=== PATIENT | female | born 1955 | race Caucasian/White ===

== ENCOUNTER 2022-08-24 14:27 | Emergency (ER) | payer MEDICARE, SELFPAY ==
--- NOTE | ~2022-08-24 | US_ITS ---
EXAMINATION: US VENOUS ULTRASOUND WITH DOPPLER LOWER EXTREMITY, LEFT CLINICAL INFORMATION: Left leg pain COMPARISON: None available. TECHNIQUE: Ultrasound of the deep veins is performed from the hip to the calf with compression sonography and color and pulse Doppler assessment. Spectral analysis with color-flow imaging is performed. FINDINGS: There is normal venous compression and respiratory variation and augmented flow. The visualized common femoral vein, superficial femoral vein, profunda femoral vein, popliteal vein, and the trifurcation region shows no evidence of deep venous thrombosis. There is normal respiratory variation in the contralateral common femoral vein. 2.2 x 4.1 x 1.2 cm fluid collection in the left popliteal fossa is consistent with a Esteban's cyst. US/US venous duplex LE LT IMPRESSION: No DVT demonstrated in the left lower extremity. Small Esteban's cyst.
--- NOTE | 2022-08-24 14:39 | ED.GENADULT ---
HPI - General Adult General Chief complaint: Extremity Injury, Lower Stated complaint: L Leg Pain No Injury Time Seen by Provider: 08/24/22 16:19 History of Present Illness HPI narrative: patient complains of worsening left leg pain over the past 2 and half months, she did see an urgent care and was referred for an ultrasound in April, this was negative, pain has been waxing and waning and lately is getting worse She denies any skin rash no changes to skin color, there has been no joint swelling no injuries no fevers no numbness weakness or tingling no radiation of pain from her back no associated back pain no abdominal pain no nausea or vomiting no chest pain or shortness Related Data Previous Rx's Medication Instructions Recorded naproxen 500 mg tablet (Naprosyn) 500 mg PO BID PRN pain #20 tabs 08/24/22 Allergies Allergy/AdvReac Type Severity Reaction Status Date / Time Penicillins Allergy Unknown Unknown Verified 08/24/22 14:44 [facility] Past Medical History Source: nursing notes reviewed Social History Social History Advance Directives: No Advance Directives Information Provided: No Physical Exam ED Vital Signs: Vital Signs - 24 hr 08/24/22 14:41 Temperature 98.0 F Pulse Rate 61 Respiratory Rate 18 Blood Pressure 141/87 H Pulse Oximetry 95 Oxygen Delivery Method Room Air BMI result Body Mass Index 31.6 general appearance no acute distress relaxing in the room Head is normocephalic atraumatic Neck is supple Respiratory no distress Chest clear to auscultation bilateral Abdomen soft nontender Extremities full range of motion x4 Left leg exam there is tenderness in the popliteal area but there is also some tenderness in both anterior and posterior lower leg, the color of the skin was normal and symmetric with the other side, pulse is dorsalis pedis were symmetric and palpable, leg was neurovascular intact distal, no redness no warmth no evidence of cellulitis no swelling Skin no rashes Neuro motor 5/5 x4 and sensation is intact and symmetrical, she is walking with a limping gait Course Course Course Narrative: This is an RME: Additional HPI, ROS, PE not included below will be deferred to primary provider. Patient is a 66 yo F with no PMH presenting with pain in left leg. Patient reports last time this happened was in April and sought treatment but nothing was found. patient presents again today with similar pain for the past week from the knee that radiates down the leg. Patient reports 10/10 pain. patient denies recent travel, hormone therapy, smoking, cancer. Patient denies fever, chills, nausea,vomiting, headache, vision changes, numbness, tingling Plan: labs, US Patient came with a complaint of continuous gradually worsening pain in the left lower leg both front and back going from the knee mostly the back of the knee down to the toes sometimes, it is not accompanied by any change in skin color there is no loss of sensation there is no tingling or paresthesias there is no muscle weakness, it was gradual onset She did see a clinic for similar complaint 2 months ago and had a negative ultrasound, has not seen her primary doctor Today the leg was normal in appearance with a good pulse, neurovascular intact, ultrasound was negative for DVT but did show a small Esteban cyst,there is no evidence of cellulitis the joints were all fully mobile there was no joint swelling there were no lesions on the skin plan is to follow with primary doctor for possible referral to a neurologist to evaluate for possible pinched nerve, referral to orthopedist for further evaluation of the Esteban's cyst and possible further imaging to see if there is any mass that could be pressing on a nerve Patient agrees to follow closely with her doctor and will return if anything is worse Chemistry was checked and no acute abnormalities Medical Decision Making Lab Data 08/24/22 15:06 08/24/22 15:06 Labs: Lab Results 08/24/22 08/24/22 Range/Units 15:06 15:06 PT 11.2 (10.0-13.1) SEC INR 1.0 (0.9-1.1) Sodium 140 (135-145) mmol/L Potassium 4.2 (3.3-5.1) mmol/L Chloride 105 (96-108) mmol/L Carbon Dioxide 28 (22-29) mmol/L Anion Gap 11 L (12-20) BUN 13 (9-16) mg/dL Creatinine 0.79 (0.5-1.4) mg/dL Estim Creat Clear Calc 63.5 Estimated GFR > 60 Random Glucose 82 (60-115) mg/dL Calcium 10.2 (8.4-10.2) mg/dL Magnesium 2.1 (1.6-2.6) mg/dL Total Bilirubin 0.5 (0.0-1.0) mg/dL AST 21 (5-31) U/L ALT 28 (0-31) U/L Alkaline Phosphatase 87 (39-117) U/L Total Protein 6.7 (6.5-8.0) g/dL Albumin 4.1 (3.5-5.0) g/dL Discharge Plan Discharge Clinical Impression: Leg pain Patient Disposition: Home, Self-Care Additional Instructions: I am not sure what is causing the pain in the leg In the emergency room there is no sign of infection, it seems to have good circulation there is no blood clot no signs of any broken bone You may need further evaluation by a neurologist or possibly more advanced imaging to make sure there is no cyst or mass pressing anywhere, so follow closely with primary doctor and orthopedist Return any time any worse condition or any concerns Prescriptions: New naproxen [Naprosyn] 500 mg tablet 500 mg PO BID PRN (Reason: pain) Qty: 20 0RF Referrals: Chaitanya Gaming MD [Physician] - ( esteban cyst) Interventions: ED Discharge Assessment Last Done: 08/24/22 17:33 Discharge Date/Time: 08/24/22 17:36
[2022-08-24 14:41] VITALS: BP 141/87; PULSE 61; RESP 18; TEMP 36.7; O2SAT 95; BMI 31.6
[2022-08-24 15:12] LABS: MANUAL DIFF FLAG NO
[2022-08-24 15:26] LABS: Alanine Aminotransferase 28 U/L (0-31); Albumin Level 4.1 g/dL (3.5-5.0); Alkaline Phosphatase 87 U/L (39-117); Anion Gap 11 (12-20); Aspartate Amino Transferase 21 U/L (5-31); Bilirubin Total 0.5 mg/dL (0.0-1.0); Blood Urea Nitrogen 13 mg/dL (9-16); Calcium 10.2 mg/dL (8.4-10.2); Carbon Dioxide 28 mmol/L (22-29); Chloride 105 mmol/L (96-108); Creatinine Clr Calc Pharmacy 63.5; Estimated Glomerular Filt Rate > 60; Glucose Random 82 mg/dL (60-115); Magnesium 2.1 mg/dL (1.6-2.6); Potassium 4.2 mmol/L (3.3-5.1); Sodium 140 mmol/L (135-145); Total Protein 6.7 g/dL (6.5-8.0)
[2022-08-24 15:46] LABS: Prothrombin Time 11.2 SEC (10.0-13.1)
[2022-08-24 19:33] LABS: Basophils Absolute Auto 0.1 X10*3/uL (0.0-0.2); Basophils Percent Auto 1.2 % (0-2); Eosinophils Absolute Auto 0.2 X10*3/uL (0.0-0.4); Eosinophils Percent Auto 4.6 % (0-4); Hematocrit 43.5 % (37.0-47.0); Hemoglobin 14.9 g/dl (12.0-16.0); Imm Gran Abs Auto 0.01 X10*3/uL (0.00-0.03); Imm Gran Pct Auto 0.2 % (0.0-0.4); Lymphocytes Absolute Auto 1.5 X10*3/uL (1.2-4.9); Lymphocytes Percent Auto 30.9 % (20-40); Mean Corpuscular HGB Conc 34.3 g/dl (31.0-35.0); Mean Corpuscular Volume 90.6 fL (80.0-98.0); Mean Platelet Volume 10.5 fL (9.4-12.3); Monocytes Absolute Auto 0.5 X10*3/uL (0.1-1.2); Monocytes Percent Auto 10.2 % (2-11); Neutrophils Absolute Auto 2.6 x10*3/uL (2.0-8.3); Neutrophils Percent Auto 52.9 % (45-73); Platelet Count 201 X10*3/uL (160-400); Red Cell Distribution Width 12.1 % (11.0-16.0)
== END 2022-08-24 17:36 | disposition home or self-care (01) ==
PROVIDERS: Physician Assistant; Emergency Provider Emergency Medicine Emergency Medical Services; PCP Family Medicine
DX: M79.605 Pain in left leg (principal)
CPT/HCPCS: 36415; 80053; 83735; 85025; 85610; 93971; 99282; 99284

== ENCOUNTER 2022-08-27 11:13 | Outpatient (REF) | payer MEDICARE, SELFPAY ==
--- NOTE | ~2022-08-27 | XR_ITS ---
EXAMINATION: XR LUMBOSACRAL SPINE WITH OBLIQUES CLINICAL INFORMATION: Low back pain radiating to left leg COMPARISON: None available. TECHNIQUE: AP, both oblique, and lateral views of the lumbar spine. Lateral view of the lumbosacral junction. FINDINGS: There is maintained lumbar lordosis with mild levoscoliosis. Loss of T12/L1, L1-L2 and L2-L3 disc heights with moderate ventral spondylosis in the upper lumbar lower dorsal spine is noted. On oblique views there is no pars defect or listhesis. No acute fracture, lytic or sclerotic process seen. SI joints are symmetrical and normal. The paravertebral soft tissues are normal. XR/XR lumbar spine 4V min IMPRESSION: Mild levoscoliosis lumbar spine with degenerative disc changes upper lumbar spine with moderate ventral spondylosis. No acute fracture or lytic process seen.
== END 2022-08-27 11:14 | disposition home or self-care (01) ==
LOC: HO.XRAY 11:13
PROVIDERS: Absent Provider Family Medicine; PCP Family Medicine; Visit Provider General Practice
DX: M54.50 Low back pain, unspecified (principal); M79.605 Pain in left leg
CPT/HCPCS: 72110

== ENCOUNTER 2022-09-10 12:05 | Outpatient (REF) | payer MEDICARE, SELFPAY ==
[2022-09-10 14:17] LABS: MANUAL DIFF FLAG NO
[2022-09-10 14:25] LABS: Basophils Absolute Auto 0.1 X10*3/uL (0.0-0.2); Basophils Percent Auto 1.1 % (0-2); Eosinophils Absolute Auto 0.3 X10*3/uL (0.0-0.4); Eosinophils Percent Auto 5.8 % (0-4); Hematocrit 45.4 % (37.0-47.0); Hemoglobin 15.3 g/dl (12.0-16.0); Imm Gran Abs Auto 0.02 X10*3/uL (0.00-0.03); Imm Gran Pct Auto 0.4 % (0.0-0.4); Lymphocytes Absolute Auto 1.4 X10*3/uL (1.2-4.9); Lymphocytes Percent Auto 24.2 % (20-40); Mean Corpuscular HGB Conc 33.7 g/dl (31.0-35.0); Mean Corpuscular Hemoglobin 30.9 pg (27.0-33.0); Mean Corpuscular Volume 91.7 fL (80.0-98.0); Mean Platelet Volume 11.3 fL (9.4-12.3); Monocytes Absolute Auto 0.5 X10*3/uL (0.1-1.2); Monocytes Percent Auto 9.1 % (2-11); Neutrophils Absolute Auto 3.4 x10*3/uL (2.0-8.3); Neutrophils Percent Auto 59.4 % (45-73); Platelet Count 241 X10*3/uL (160-400); Red Blood Count 4.95 X10*6/uL (4.20-5.50); Red Cell Distribution Width 12.4 % (11.0-16.0); White Blood Count 5.7 X10*3/uL (4.8-10.8)
[2022-09-10 15:07] LABS: Alanine Aminotransferase 23 U/L (0-31); Albumin Level 4.1 g/dL (3.5-5.0); Alkaline Phosphatase 82 U/L (39-117); Anion Gap 18 (12-20); Aspartate Amino Transferase 21 U/L (5-31); Bilirubin Total 0.6 mg/dL (0.0-1.0); Blood Urea Nitrogen 18 mg/dL (9-16); Calcium 9.5 mg/dL (8.4-10.2); Carbon Dioxide 22 mmol/L (22-29); Chloride 104 mmol/L (96-108); Cholesterol 185 mg/dL; Estimated Glomerular Filt Rate > 60; Glucose Fasting 82 mg/dL (60-99); HDL Cholesterol 56 mg/dL; LDL Cholesterol Calculated 113 mg/dl; Potassium 4.4 mmol/L (3.3-5.1); Sodium 140 mmol/L (135-145); Total Protein 6.9 g/dL (6.5-8.0); Triglycerides 83 mg/dL
[2022-09-10 15:10] LABS: TSH reflex Free T4 1.08 uIU/mL (0.32-4.0)
[2022-09-10 15:26] LABS: Creatinine Urine 72.11 mg/dL
== END 2022-09-10 12:06 | disposition home or self-care (01) ==
LOC: HO.CHCLDS 12:05
PROVIDERS: Visit Provider Family Medicine
DX: I10 Essential (primary) hypertension (principal)
CPT/HCPCS: 36415; 80053; 80061; 84443; 85025

== ENCOUNTER 2022-09-10 13:19 | Outpatient (REF) | payer MEDICARE, SELFPAY ==
--- NOTE | ~2022-09-10 | XR_ITS ---
EXAMINATION: XR KNEE, LEFT CLINICAL INFORMATION: Pain and swelling COMPARISON: None available. TECHNIQUE: Four views of the left knee. FINDINGS: Moderate suprapatellar effusion. Tricompartment spurring. Medial knee joint narrowing. No fracture or dislocation. XR/XR knee LT 4V IMPRESSION: Moderate suprapatellar effusion. Degenerative type changes.
== END 2022-09-10 13:20 | disposition home or self-care (01) ==
LOC: HO.XRAY 13:19
PROVIDERS: Visit Provider Family Medicine
DX: M25.562 Pain in left knee (principal); M25.462 Effusion, left knee
CPT/HCPCS: 73564

== ENCOUNTER 2022-09-13 18:46 | Outpatient (REF) | payer MEDICARE, SELFPAY ==
--- NOTE | ~2022-09-13 | MR_ITS ---
EXAMINATION: MR KNEE WITHOUT CONTRAST, LEFT CLINICAL INFORMATION: Left knee pain COMPARISON: Radiographs 09/10/2022 TECHNIQUE: MRI of the knee without contrast was performed using routine sequences on a high-field scanner. FINDINGS: MENISCI: Medial Meniscus: Irregular ill-defined tearing along the inner margin of the posterior horn at and adjacent to the meniscal root. Mild undersurface tearing at the junction of the posterior horn and body which is slightly extruded. Lateral Meniscus: Degenerative tearing at the root of the anterior horn, at the junction with the ACL insertion. LIGAMENTS: Cruciate: Mucoid degeneration of the ACL with ill-defined partial tearing distally. Collateral: Intact. EXTENSOR MECHANISM: Intact. ARTICULAR CARTILAGE/BONE: Patellofemoral Compartment: Cartilage thinning with surface irregularity throughout the central patella. Medial Compartment: Mild cartilage thinning along the lateral aspect of the weight-bearing femoral condyle and the central aspect of the tibia. Peripheral cartilage thinning and subchondral marrow edema medially with small marginal osteophytes. Lateral Compartment: Cartilage thinning along the lateral tibial spine and small marginal osteophytes. Prominent degenerative cysts deep to the tibial spines centrally. JOINT FLUID AND BURSAE: Small joint effusion and mild synovitis. Small Esteban's cyst which has likely recently ruptured, with fluid extending distally deep to the medial gastrocnemius muscle. A small ganglion projects through the medial gastrocnemius origin. MR/MR knee LT wo con IMPRESSION: 1. Irregular ill-defined tearing along the inner margin of the posterior horn of the medial meniscus at and adjacent to the meniscal root. Mild undersurface tearing at the junction of the posterior horn and body which is slightly extruded. 2. Degenerative tearing at the root of the anterior horn of the lateral meniscus at the junction with the ACL insertion. 3. Mucoid degeneration of the ACL with ill-defined partial tearing distally. 4. Mild tricompartmental osteoarthritis with a small joint effusion and a recently ruptured Esteban's cyst.
== END 2022-09-13 18:47 | disposition home or self-care (01) ==
LOC: HO.MRI 18:46
PROVIDERS: PCP Family Medicine; Visit Provider Family Medicine
DX: M25.562 Pain in left knee (principal); M25.462 Effusion, left knee
CPT/HCPCS: 73721

== ENCOUNTER 2022-10-19 09:29 | Outpatient (AMB) | payer MEDICARE, SELFPAY ==
--- NOTE | 2022-10-19 09:43 | A.OFFVIS_ITS ---
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 The patient states that her symptoms have gotten worse over the last few months in spite of continued non operative treatments. She has tried wearing a brace which gives her minimal relief. She has also had injections in the past which gave her no relief. She has done physical therapy for 12 weeks over the last 6 months which aggravated her pain. Patient states that her left knee will give out several times per day. Allergies Penicillins Allergy (Unknown, Verified 10/19/22 09:43) Unknown Medication List - Last Reconciled 10/19/22 by Trevon Cosme MD amlodipine 5 mg PO DAILY cholecalciferol (vitamin D3) 50 mcg PO QAM naproxen (Naprosyn) 500 mg PO BID PRN venlafaxine ER 37.5 mg PO DAILY PFSH Surgical History (Updated 10/19/22 @ 09:52 by Mayte Snowden MA) H/O tubal ligation Family History (Updated 10/19/22 @ 09:52 by Mayte Snowden MA) Maternal Grandfather Diabetes Father Hx of emphysema Mother CHF (congestive heart failure) Stroke Sister History of kidney cancer Brother Bladder cancer Social History (Updated 10/19/22 @ 09:49 by Mayte Snowden MA) Household Members: Spouse Housing: House Alcohol intake: never Patient Tobacco Use Status: Never used Tobacco Current occupational status: employed 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 Physical Exam Const Other: Well-nourished well-developed very friendly female awake alert and oriented x3 in no acute distress Extrem Other: Bilateral lower extremity examination shows good capillary refill, no skin lesions noted, normal sensation light touch Left knee examination shows a mild effusion, minimal crepitus with range of motion, tenderness along her medial and lateral joint lines, positive Koby's test, no instability Office Procedures Joint Injection/Drain Joint Injection/Drain Primary Site: left knee Prep: site was prepped using aseptic technique Injected: 40 mg of, Kenalog and 1% plain lidocaine Procedure: The patient tolerated the procedure well Coding 49509 - Large joint Procedure code (CPT) selection complete Results Reviewed Results Reviewed: 10/19/22 10:22 Lidocaine HCl 2 % MPF [Xylocaine 2 % MPF] 5 ml .ROUTE .STK-MED ONE Triamcinolone Acetonide [Kenalog-40] 40 mg .ROUTE .STK-MED ONE X-rays of the patient's left knee show mild diffuse joint space narrowing, no acute bony abnormalities MRI of the patient's left knee shows mild diffuse degenerative changes as well as tearing of her medial meniscus and possible tearing of her lateral meniscus, no acute bony abnormalities Assessment & Plan Assessment & Plan (1) Tear of medial meniscus of left knee: Code(s): S83.242A - Other tear of medial meniscus, current injury, left knee, initial encounter Plan: Ms. Solis presents with progressively worsening left knee pain and mechanical symptoms due to tearing of her medial meniscus as well as possible te aring of her lateral meniscus. I had a lengthy discussion with the patient regarding the treatment options. The risks and benefits of a cortisone injection were discussed at length with the patient. The patient wished to proceed. Patient tolerated the left knee cortisone injection well. Prior to the injection 10 cc of clear fluid were aspirated from her left knee. If the patient does not get lasting relief from the cortisone injection therapy she is considering undergoing left knee arthroscopic surgery later this year. She will contact my office to pick a surgery date if she chooses to do so. Surgery will most likely involve left knee diagnostic arthroscopy with partial medial meniscectomy as well as possible partial lateral meniscectomy. Activity modifications were discussed at length with the patient. Feel free to call me at any time should questions regarding her orthopedic management arise. Thank you very much for asking me to see this very friendly patient. I spent 22 minutes in reviewing the patient's records and imaging studies, seeing the patient and documenting in the medical record. Orders: Orders AMB Joint Injection/Aspiration Today S83.242A - Other tear of medial meniscus, current injury, left knee, initial encounter Coding Level of Care Code New Pt Level 2 (62074) Diagnoses Tear of medial meniscus of left knee S83.242A CPT Codes Coding - 18806 Large joint: 80077 - Large joint ([id number])
== END 2022-10-19 10:42 | disposition home or self-care (01) ==
PROVIDERS: PCP Family Medicine; Visit Provider Orthopaedic Surgery
DX: S83.242A Other tear of medial meniscus, current injury, left knee, initial encounter (principal)
CPT/HCPCS: 20610; 99204

== ENCOUNTER → 2022-10-19 09:29 | Outpatient (BNVA) | payer MEDICARE, SELFPAY | PROVIDERS: PCP Family Medicine; Visit Provider Orthopaedic Surgery | DX: S83.242A Other tear of medial meniscus, current injury, left knee, initial encounter (principal); M25.562 Pain in left knee | CPT/HCPCS: 20610; 99202; J3301 ==

== ENCOUNTER → 2022-11-12 06:03 | Day surgery (SDC) | payer MEDICARE, SELFPAY ==
[2022-11-10 10:00] VITALS: BMI 32.8
[2022-11-12 06:26] VITALS: BP 130/79; PULSE 57; RESP 16; TEMP 36.9; O2SAT 97
--- NOTE | 2022-11-12 06:30 | ECG_ITS ---
Test Reason : arrhythmia preop Blood Pressure : / mmHG Vent. Rate : 048 BPM Atrial Rate : 000 BPM P-R Int : 000 ms QRS Dur : 078 ms QT Int : 396 ms P-R-T Axes : 000 043 044 degrees QTc Int : 353 ms Atrial fibrillation with slow ventricular response Abnormal ECG No previous ECGs available Referred By: Homer Martin Electronically Signed By:WOJCIECH HENRY
--- NOTE | 2022-11-12 07:02 | PC.NURSE ---
MD RIBERA AND MYSELF BY THE BEDSIDE EVALUATING PATIENT. DENIES ANY CARDIAC SYMPTOMS.
--- NOTE | 2022-11-12 07:12 | PC.NURSE ---
iv removed. patients aware of plan of care. patient given a copy of her ekg and to call her pcp md this morning to make an appt and instructed to go to the er if shes having any symptoms. patients recently stated her fit bit told her she was in some kind of rhythm but wasnt sure what it was. md wilkins already spoke to md waddell.
== END ==
LOC: HO.SSS 06:04
PROVIDERS: PCP Family Medicine; Visit Provider Orthopaedic Surgery
DX: S83.282A Other tear of lateral meniscus, current injury, left knee, initial encounter (principal); Z53.09 Procedure and treatment not carried out because of other contraindication; I48.91 Unspecified atrial fibrillation; X58.XXXA Exposure to other specified factors, initial encounter; Y93.9 Activity, unspecified; Y92.9 Unspecified place or not applicable; Y99.8 Other external cause status
CPT/HCPCS: 93005

== ENCOUNTER 2022-11-12 10:51 | Emergency (ER) | payer MEDICARE, SELFPAY ==
--- NOTE | 2022-11-12 10:53 | ECG_ITS ---
Test Reason : afib Blood Pressure : / mmHG Vent. Rate : 060 BPM Atrial Rate : 060 BPM P-R Int : 260 ms QRS Dur : 082 ms QT Int : 376 ms P-R-T Axes : 039 020 029 degrees QTc Int : 376 ms Sinus rhythm with 1st degree A-V block Anteroseptal infarct , age undetermined Abnormal ECG When compared with ECG of 12-NOV-2022 06:48, Sinus rhythm has replaced Atrial fibrillation Anteroseptal infarct is now Present Referred By: Generic ED Physician Electronically Signed By:WOJCIECH HENRY
[2022-11-12 10:59] VITALS: BP 155/79; PULSE 61; RESP 19; TEMP 36.6; O2SAT 98; BMI 33.6
--- NOTE | 2022-11-12 11:04 | ED_ITS ---
HPI - General Adult General Chief complaint: General Medical Stated complaint: Afib Time Seen by Provider: 11/12/22 11:03 History of Present Illness HPI narrative: see additional note from Barrett Hayden MD dated 11/12/22 Related Data Home Medications Medication Instructions Recorded Confirmed amlodipine 5 mg tablet 5 mg PO DAILY 10/19/22 11/10/22 cholecalciferol (vitamin D3) 50 50 mcg PO QAM 10/19/22 11/10/22 mcg (2,000 unit) tablet venlafaxine 37.5 mg 37.5 mg PO DAILY 10/19/22 11/10/22 capsule,extended release 24 hr Previous Rx's Medication Instructions Recorded naproxen 500 mg tablet (Naprosyn) 500 mg PO BID PRN pain #20 tabs 08/24/22 apixaban 5 mg tablet (Eliquis) 5 mg PO BID a fib #28 tabs 11/12/22 Allergies Allergy/AdvReac Type Severity Reaction Status Date / Time Penicillins Allergy Unknown Unknown Verified 11/10/22 10:00 [facility] Past Medical History Medical History Asthma HTN (hypertension) Surgical History H/O tubal ligation Family History Family History Maternal Grandfather Diabetes Father Hx of emphysema Mother CHF (congestive heart failure) Stroke Sister History of kidney cancer Brother Bladder cancer Social History Social History Household Members: Spouse Housing: House Alcohol intake: never Patient Tobacco Use Status: Never used Tobacco Current occupational status: employed 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 Patient is a 67-year-old female who presents to emergency department with transfer from short-stay surgery she was there today to receive a knee surgery. Reportedly her initial EKG revealed an atrial fibrillation for which she was advised to come to the emergency department for further evaluation, surgery was canceled. Currently asymptomatic. She does endorse occasional episodes of lightheadedness that she attributes to her Meniere's disease and shortness of breath that she attributes to asthma/allergies. Medical Decision Making Lab Data 11/12/22 12:04 11/12/22 12:04 Labs: Lab Results 11/12/22 Range/Units 12:04 WBC 4.3 L (4.8-10.8) X10*3/uL RBC 4.51 (4.20-5.50) X10*6/uL Hgb 14.3 (12.0-16.0) g/dl Hct 41.7 (37.0-47.0) % MCV 92.5 (80.0-98.0) fL MCH 31.7 (27.0-33.0) pg MCHC 34.3 (31.0-35.0) g/dl RDW 12.9 (11.0-16.0) % Plt Count 180 D (160-400) X10*3/uL MPV 10.6 (9.4-12.3) fL Immature Gran % (Auto) 0.2 (0.0-0.4) % Neut % (Auto) 55.7 (45-73) % Lymph % (Auto) 29.4 (20-40) % [place] % (Auto) 7.7 (2-11) % Eos % (Auto) 6.1 H (0-4) % Baso % (Auto) 0.9 (0-2) % Lymph # (Auto) 1.3 (1.2-4.9) X10*3/uL [place] # (Auto) 0.3 (0.1-1.2) X10*3/uL Eos # (Auto) 0.3 (0.0-0.4) X10*3/uL Baso # (Auto) 0.0 (0.0-0.2) X10*3/uL Abs Immat Gran (auto) 0.01 (0.00-0.03) X10*3/uL Absolute Neuts (auto) 2.4 (2.0-8.3) x10*3/uL Absolute Nucleated RBC 0.000 (0.0-0.012) X10*3/uL Nucleated RBC % (auto) 0.0 (0.0-0.2) /100WBC PT 10.8 L (11.1-13.3) SEC INR 0.9 (0.9-1.1) Sodium 144 (135-145) mmol/L Potassium 4.2 (3.3-5.1) mmol/L Chloride 105 (96-108) mmol/L Carbon Dioxide 28 (22-29) mmol/L Anion Gap 15 (12-20) BUN 14 (9-16) mg/dL Creatinine 0.95 (0.5-1.4) mg/dL Estim Creat Clear Calc 53.7 Estimated GFR 59 Random Glucose 102 (60-115) mg/dL Calcium 9.6 (8.4-10.2) mg/dL Magnesium 2.2 (1.6-2.6) mg/dL Total Bilirubin 0.5 (0.0-1.0) mg/dL AST 20 (5-31) U/L ALT 23 (0-31) U/L Alkaline Phosphatase 72 (39-117) U/L Troponin I High Sens < 2.7 (<3.5-17.0) ng/L B-Natriuretic Peptide 111 H (<100) pg/mL Total Protein 6.5 (6.5-8.0) g/dL Albumin 4.0 (3.5-5.0) g/dL TSH 0.82 (0.32-4.0) uIU/mL Discharge Plan Discharge Clinical Impression: A-fib Patient Disposition: Home, Self-Care Instructions: A-fib (Atrial Fibrillation) (ED) Prescriptions: New Eliquis 5 mg tablet 5 mg PO BID Qty: 28 0RF No Action naproxen [Naprosyn] 500 mg tablet 500 mg PO BID PRN (Reason: pain) Qty: 20 0RF cholecalciferol (vitamin D3) 50 mcg (2,000 unit) tablet 50 mcg PO QAM amlodipine 5 mg tablet 5 mg PO DAILY venlafaxine 37.5 mg capsule,extended release 24hr 37.5 mg PO DAILY Referrals: Donavan Barksdale MD [Physician] - 11/15/22 Interventions: ED Discharge Assessment Last Done: 11/12/22 13:42 Discharge Date/Time: 11/12/22 13:42
[2022-11-12 12:07] VITALS: BP 128/73; PULSE 59; RESP 11; TEMP 36.6; O2SAT 96
[2022-11-12 12:13] LABS: MANUAL DIFF FLAG NO
[2022-11-12 12:16] LABS: Basophils Percent Auto 0.9 % (0-2); Eosinophils Absolute Auto 0.3 X10*3/uL (0.0-0.4); Eosinophils Percent Auto 6.1 % (0-4); Hematocrit 41.7 % (37.0-47.0); Hemoglobin 14.3 g/dl (12.0-16.0); Imm Gran Abs Auto 0.01 X10*3/uL (0.00-0.03); Imm Gran Pct Auto 0.2 % (0.0-0.4); Lymphocytes Absolute Auto 1.3 X10*3/uL (1.2-4.9); Lymphocytes Percent Auto 29.4 % (20-40); Mean Corpuscular HGB Conc 34.3 g/dl (31.0-35.0); Mean Corpuscular Hemoglobin 31.7 pg (27.0-33.0); Mean Corpuscular Volume 92.5 fL (80.0-98.0); Mean Platelet Volume 10.6 fL (9.4-12.3); Monocytes Absolute Auto 0.3 X10*3/uL (0.1-1.2); Monocytes Percent Auto 7.7 % (2-11); Neutrophils Absolute Auto 2.4 x10*3/uL (2.0-8.3); Neutrophils Percent Auto 55.7 % (45-73); Platelet Count 180 X10*3/uL (160-400); Red Blood Count 4.51 X10*6/uL (4.20-5.50); Red Cell Distribution Width 12.9 % (11.0-16.0); White Blood Count 4.3 X10*3/uL (4.8-10.8)
[2022-11-12 12:22] LABS: INTERNATIONAL NORM RATIO 0.9 (0.9-1.1); Prothrombin Time 10.8 SEC (11.1-13.3)
--- NOTE | 2022-11-12 12:26 | ED_ITS ---
HPI - General Adult General Chief complaint: General Medical Stated complaint: Afib Time Seen by Provider: 11/12/22 11:03 History of Present Illness HPI narrative: Patient is a 67-year-old female with a history of hypertension currently on amlodipine. Presented today with having an EKG done prior to surgery. It was noted to be in an atrial fibrillation/atrial flutter pattern. Patient was subsequently sent by her primary physician to the emergency department. She has no chest pain or shortness breath no dizziness no nausea no vomiting no systemic complaints. Denies knowing any history of AFib in the past. Related Data Home Medications Medication Instructions Recorded Confirmed amlodipine 5 mg tablet 5 mg PO DAILY 10/19/22 11/10/22 cholecalciferol (vitamin D3) 50 50 mcg PO QAM 10/19/22 11/10/22 mcg (2,000 unit) tablet venlafaxine 37.5 mg 37.5 mg PO DAILY 10/19/22 11/10/22 capsule,extended release 24 hr Previous Rx's Medication Instructions Recorded naproxen 500 mg tablet (Naprosyn) 500 mg PO BID PRN pain #20 tabs 08/24/22 apixaban 5 mg tablet (Eliquis) 5 mg PO BID a fib #28 tabs 11/12/22 Allergies Allergy/AdvReac Type Severity Reaction Status Date / Time Penicillins Allergy Unknown Unknown Verified 11/10/22 10:00 Review of Systems 2 Review of Systems: No fever no chills no chest pain or shortness of breath no symptoms. Yes all other systems are reviewed and are negative PMFSH Past Medical History Attestation statement: The following information was validated with the patient. Medical History Asthma HTN (hypertension) Surgical History H/O tubal ligation Family History Family History Maternal Grandfather Diabetes Father Hx of emphysema Mother CHF (congestive heart failure) Stroke Sister History of kidney cancer Brother Bladder cancer Social History Social History Household Members: Spouse Housing: House Alcohol intake: never Patient Tobacco Use Status: Never used Tobacco Smoked in Last 30 Days: No Use of substances other than those prescribed or required for medical reasons: No Advance Directives: No Advance Directives Information Provided: Yes Current occupational status: employed 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 Oriented X3. No acute distress. Eyes: Pupils equal, round and reactive to light. ENT: Pharynx normal. Neck: Normal inspection. Neck supple. No lymph nodes noted. No crepitus CVS: Normal heart rate and rhythm. Pulses normal. Normal S1 and S2 Respiratory: No respiratory distress. Breath sounds normal. No Wheezing. No rales Abdomen: Soft and nontender. No rigidity. No distention. good BS x4 Skin: Skin warm and dry. Normal skin color. Normal skin turgor. Extremities: No lower extremity edema. Neurovascular intact to all extremities. No Lacerations. No Rash Neuro: Oriented X 3. No motor deficit. No sensory deficit. Moving all extermities. No slurred speech Medical Decision Making Medical Decision Making [facility] Narrative: Interpretation of patient's EKG while in the emergency department showed a sinus rhythm heart rate is 60 MA is prolonged consistent with first-degree heart block. QRS QTC within normal limit there is no acute ST segment elevation noted. Patient is from home. My interpretation of patient's EKG done earlier at 06:48 showed an atrial fibrillation pattern heart rate was approximately 45 S is normal QTC is normal there is no acute ST segment elevation noted. And has a history of hypertension. She is 67 years old. Her Ochoa Vasc 2 score is a 3. Will discuss with Cardiology about starting patient on blood thinners. Currently in stable condition. No distress. No symptoms. Patient's case discussed with cardiology. Will start patient on Eliquis. Patient to follow-up with cardiology on an outpatient basis. In stable condition. Differential Diagnosis Differential Diagnoses: The differential diagnosis associated with the presentation includes Atrial fibrillation Consult Healthcare Provider Management of the patient was discussed with: Prize Fighter Case discussed with Cardiology. Agreed with starting Eliquis. Lab Data [facility] Lab Attestation statement: I reviewed the patient's lab results. 11/12/22 12:04 11/12/22 12:04 Labs: Lab Results 11/12/22 Range/Units 12:04 WBC 4.3 L (4.8-10.8) X10*3/uL RBC 4.51 (4.20-5.50) X10*6/uL Hgb 14.3 (12.0-16.0) g/dl Hct 41.7 (37.0-47.0) % MCV 92.5 (80.0-98.0) fL MCH 31.7 (27.0-33.0) pg MCHC 34.3 (31.0-35.0) g/dl RDW 12.9 (11.0-16.0) % Plt Count 180 D (160-400) X10*3/uL MPV 10.6 (9.4-12.3) fL Immature Gran % (Auto) 0.2 (0.0-0.4) % Neut % (Auto) 55.7 (45-73) % Lymph % (Auto) 29.4 (20-40) % Carolina % (Auto) 7.7 (2-11) % Eos % (Auto) 6.1 H (0-4) % Baso % (Auto) 0.9 (0-2) % Lymph # (Auto) 1.3 (1.2-4.9) X10*3/uL Carolina # (Auto) 0.3 (0.1-1.2) X10*3/uL Eos # (Auto) 0.3 (0.0-0.4) X10*3/uL Baso # (Auto) 0.0 (0.0-0.2) X10*3/uL Abs Immat Gran (auto) 0.01 (0.00-0.03) X10*3/uL Absolute Neuts (auto) 2.4 (2.0-8.3) x10*3/uL Absolute Nucleated RBC 0.000 (0.0-0.012) X10*3/uL Nucleated RBC % (auto) 0.0 (0.0-0.2) /100WBC PT 10.8 L (11.1-13.3) SEC INR 0.9 (0.9-1.1) Sodium 144 (135-145) mmol/L Potassium 4.2 (3.3-5.1) mmol/L Chloride 105 (96-108) mmol/L Carbon Dioxide 28 (22-29) mmol/L Anion Gap 15 (12-20) BUN 14 (9-16) mg/dL Creatinine 0.95 (0.5-1.4) mg/dL Estim Creat Clear Calc 53.7 Estimated GFR 59 Random Glucose 102 (60-115) mg/dL Calcium 9.6 (8.4-10.2) mg/dL Magnesium 2.2 (1.6-2.6) mg/dL Total Bilirubin 0.5 (0.0-1.0) mg/dL AST 20 (5-31) U/L ALT 23 (0-31) U/L Alkaline Phosphatase 72 (39-117) U/L Troponin I High Sens < 2.7 (<3.5-17.0) ng/L B-Natriuretic Peptide 111 H (<100) pg/mL Total Protein 6.5 (6.5-8.0) g/dL Albumin 4.0 (3.5-5.0) g/dL Independent Interpretation I performed an independent interpretation of an: EKG (EKG interpretation as above) Independent Historian Clinical information obtained from an independent historian. History obtained from or confirmed by: Spouse External Record Review External record reviewed: Office record Orthopedic record reviewed Discharge Plan Discharge Clinical Impression: A-fib Patient Disposition: Home, Self-Care Instructions: A-fib (Atrial Fibrillation) (ED) Prescriptions: New Eliquis 5 mg tablet 5 mg PO BID Qty: 28 0RF No Action naproxen [Naprosyn] 500 mg tablet 500 mg PO BID PRN (Reason: pain) Qty: 20 0RF cholecalciferol (vitamin D3) 50 mcg (2,000 unit) tablet 50 mcg PO QAM amlodipine 5 mg tablet 5 mg PO DAILY venlafaxine 37.5 mg capsule,extended release 24hr 37.5 mg PO DAILY Referrals: Donavan Barksdale MD [Physician] - 11/15/22
[2022-11-12 12:30] LABS: Alanine Aminotransferase 23 U/L (0-31); Alkaline Phosphatase 72 U/L (39-117); Anion Gap 15 (12-20); Aspartate Amino Transferase 20 U/L (5-31); Bilirubin Total 0.5 mg/dL (0.0-1.0); Blood Urea Nitrogen 14 mg/dL (9-16); Calcium 9.6 mg/dL (8.4-10.2); Carbon Dioxide 28 mmol/L (22-29); Chloride 105 mmol/L (96-108); Creatinine Clr Calc Pharmacy 53.7; Estimated Glomerular Filt Rate 59; Glucose Random 102 mg/dL (60-115); Magnesium 2.2 mg/dL (1.6-2.6); Potassium 4.2 mmol/L (3.3-5.1); Sodium 144 mmol/L (135-145); Total Protein 6.5 g/dL (6.5-8.0)
[2022-11-12 12:35] LABS: B Type Natriuretic Peptide 111 pg/mL (<100)
--- NOTE | 2022-11-12 12:37 | PC.NURSE ---
Pt is alert/oriented. Denies pain or associated sx. NSR on tele at this time. Skin pwd, speaking full sentences. S/O at bedside. Labs drawn, awaits dispo
[2022-11-12 12:38] LABS: Troponin-I High Sensitivity < 2.7 ng/L (<3.5-17.0)
[2022-11-12 13:09] LABS: TSH reflex Free T4 0.82 uIU/mL (0.32-4.0)
== END 2022-11-12 13:42 | disposition home or self-care (01) ==
PROVIDERS: Nurse Practitioner Family; Emergency Provider Emergency Medicine Emergency Medical Services; PCP Family Medicine
DX: I48.91 Unspecified atrial fibrillation (principal); I44.0 Atrioventricular block, first degree; R06.02 Shortness of breath; Z79.899 Other long term (current) drug therapy
CPT/HCPCS: 36415; 80053; 83735; 83880; 84443; 84484; 85025; 85610; 93005; 99283; 99284

== ENCOUNTER 2022-12-13 13:48 | Outpatient (AMB) | payer MEDICARE, SELFPAY ==
[2022-12-13 13:52] VITALS: BP 140/82; PULSE 75; BMI 33.5
--- NOTE | 2022-12-13 13:52 | MHC.OFFVIS ---
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 her surgery was canceled and she was transported to the emergency room for further evaluation. she was started on Eliquis for anticoagulation. Rate slowing agents were not required. She was referred to Cardiology for further evaluation. Today she presents for cardiology consultation and reports that she has been using a home high school science tutor to track her rhythm. She notices when she feels fatigued, mildly short of breath or mildly lightheaded she is having the atrial fibrillation. She tells me she has been getting this symptom for quite some time. She never knew the cause of these vague symptoms. She denies having chest discomfort at rest or with exertion. No palpitations, presyncope, syncope, PND, orthopnea or edema. She describes herself as being very active. 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 Tolerating Eliquis without any signs of bleeding. she has discomfort with her left knee an will require arthroscopic type surgery in the near future. She reports that her mother and brother both have atrial fibrillation. Her mother also has congestive heart failure and strokes in the past. She has a remote history of smoking in her 20s. no alcohol use and no illicit drug use. Has no known cardiac history. 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 Review of Systems Const All systems reviewed & are unremarkable except as noted in HPI and below ENT Reports dizziness Card Denies chest pain, Denies chest pain at rest, Denies chest pain with activity, Denies rapid heart rate, Denies pedal edema, Denies edema, Denies leg edema, Denies lightheadedness, Denies palpitations, Reports dyspnea, Denies dyspnea on exertion and Denies orthopnea Resp Denies cough, Reports dyspnea and Denies dyspnea on exertion GI Denies hematochezia and Denies change in stool character Musc Details: left knee discomfort Denies abnormal gait, Denies limited range of motion, Denies muscle cramps, Denies muscle weakness, Denies numbness, Denies radiating pain into limb, Denies stiffness and Denies tingling Neuro Denies abnormal gait, Reports dizziness, Denies numbness and Denies tingling Endo Denies palpitations Physical Exam Vital Signs: Last Vital Signs Pulse 75 12/13/22 13:52 BP 140/82 H 12/13/22 13:52 BMI result Body Mass Index 33.5 Const General: cooperative, healthy appearing, comfortable and no acute distress Orientation/consciousness: patient oriented x3 Neck Neck: Yes normal visual inspection Resp Effort & Inspection: normal respiratory effort Auscultation: clear to auscultation bilaterally, no crackles, no rales, no rhonchi and no wheezes Cardio Jugular venous distension: no JVD Rate: regular rate Rhythm: regular rhythm Heart sounds: S1 normal heart sound present, S2 normal heart sound present, no murmurs and no rubs Neuro General: patient oriented x3 Extrem General: Yes normal to inspection, No no pedal edema and No calf tenderness Psych Appearance: grossly normal Mental Status: mental status grossly normal Speech and movement: Normal speech and movement present Office Procedures EKG Details: Today, read by me Sinus rhythm with first-degree AV block, frequent PVCs, septal Q-wave, rate 75, QTC 439 milliseconds [id number], Complete Assessment & Plan Assessment & Plan (1) A-fib: Code(s): I48.91 - Unspecified atrial fibrillation Qualifiers: Atrial fibrillation type: paroxysmal Qualified Code(s): I48.0 - Paroxysmal atrial fibrillation Plan: New finding of paroxysmal atrial fibrillation. Arrived for knee surgery on 11/12/2022. While in short-stay surgery was identified that she had atrial fibrillation. Her surgery was canceled and she was transported to the emergency room. Initial EKG there showed atrial fibrillation with heart rate 48. She did convert on her own to normal sinus rhythm with EKG showing sinus rhythm, first-degree AV block, Q-wave in V1 through V4 3, rate 60. Chads Vasc score of 3. She was started on Eliquis 5 mg b.i.d., she did not require rate slowing medication. Labs that day showed TSH 0.82, creatinine 0.95, hematocrit 41.7. Today she reports that she has been able to use a home high school science tutor and identify her symptoms they are associated with AFib. She will feel mildly lightheaded, short of breath and fatigued. EKG done today showing sinus rhythm with 3 PVCs. She does not notice heart palpitations with the PVCs or the AFib. Will check a Holter monitor to assess frequency of paroxysmal AFib, average rate and frequency of PVCs. Will check an echocardiogram to assess for structural heart disease. She tells me she can not exercise on the treadmill and has no exertional chest discomfort. Will order an exercise stress test as she has new AFib and is preop for knee surgery. If she is in atrial fibrillation on the day of the test it will need to be rescheduled. If her exercise stressTest is abnormal then a nuclear stress test will be done. No med changes made at present. Cardiology follow-up in 4-6 weeks, sooner if needed. (2) PVC's (premature ventricular contractions): Code(s): I49.3 - Ventricular premature depolarization Plan: As above (3) HTN (hypertension): Code(s): I10 - Essential (primary) hypertension Qualifiers: Hypertension type: primary hypertension Qualified Code(s): I10 - Essential (primary) hypertension Plan: adequately controlled at present. (4) Hospital discharge follow-up: Code(s): Z09 - Encounter for follow-up examination after completed treatment for conditions other than malignant neoplasm (5) Tear of medial meniscus of left knee: Code(s): S83.242A - Other tear of medial meniscus, current injury, left knee, initial encounter Plan: Will be preop in the near future, once cardiac clearance can be made Orders: Orders CA stress test Today I48.91 - Unspecified atrial fibrillation, I49.3 - Ventricular premature depolarization CA echo transthoracic complete Today I48.91 - Unspecified atrial fibrillation, I49.3 - Ventricular premature depolarization ECG 5 day holter monitor Today I48.91 - Unspecified atrial fibrillation, I49.3 - Ventricular premature depolarization Coding Level of Care Code New Pt Level 4 (60973) Diagnoses Paroxysmal atrial fibrillation I48.0 Atrial fibrillation type: paroxysmal PVC's (premature ventricular contractions) I49.3 Primary hypertension I10 Hypertension type: primary hypertension Hospital discharge follow-up Z09 Tear of medial meniscus of left knee S83.242A CPT Codes EKG - CPT: [id number], Complete ([id number]) Time Spent (min) 30
== END 2022-12-13 14:35 | disposition home or self-care (01) ==
PROVIDERS: PCP Family Medicine; Visit Provider Nurse Practitioner Family
DX: I48.0 Paroxysmal atrial fibrillation (principal); I49.3 Ventricular premature depolarization; I10 Essential (primary) hypertension; Z09 Encounter for follow-up examination after completed treatment for conditions other than malignant neoplasm; S83.242A Other tear of medial meniscus, current injury, left knee, initial encounter
CPT/HCPCS: 93010; 99204

== ENCOUNTER → 2022-12-13 13:48 | Outpatient (BNVA) | payer MEDICARE, SELFPAY | PROVIDERS: PCP Family Medicine; Visit Provider Nurse Practitioner Family | DX: I48.0 Paroxysmal atrial fibrillation (principal); I49.3 Ventricular premature depolarization; I10 Essential (primary) hypertension; S83.242A Other tear of medial meniscus, current injury, left knee, initial encounter | CPT/HCPCS: 93005; 99202 ==

== ENCOUNTER → 2022-12-24 09:53 | Outpatient (REF) | payer MEDICARE, SELFPAY ==
--- NOTE | 2022-12-24 09:56 | CA_ITS ---
Acquisition Time: 2022-12-24 10:15:27 Total Exercise Time: 00:08:31 Test Indications: Afib Medications: Amlodipine Eliquis Venlafaxine Protocol: ELLE Max HR: 137 BPM 88% of Pred: 154 BPM Max BP: 182/082 mmHG Max Work Load: 10.1 METS Exercise stress test exercise 8 min 31 sec of Elle protocol achieving 88%, with mild SOB, no chest discomfort, with isoalted PVCs, with normotensive response, without EKG changes. Test reviewed with Dr. Barksdale. Referred By: Dede Arciniega Overread By: Paola Avila
--- NOTE | 2022-12-24 09:56 | HM_ITS ---
* Total monitoring time 4 days and 9 hours. * Underlying rhythm is sinus. Average ventricular rate 66/Min. Range 48 to 160/Min. * Atrial fibrillation noted. [place] of 6.5%. Longest episode 3 hours 50 minutes. Fastest 108/Min. * Frequent ventricular ectopy with a burden of 7.5%. Isolated beats. Evidence of bigeminy and trigeminy. 2 morphologies. * No significant pauses or AV blocks. * Tiredness/fatigue/shortness of breath in patient diary correlates with ventricular bigeminy. Another episode of tiredness/fatigue correlate with sinus rhythm. Symptom of 'AFib all day' correlates with atrial fibrillation at 70/Min. * Several strips also have artifact and hence underlying rhythm is not clear. MTDD
== END ==
LOC: HO.CARD 09:53
PROVIDERS: PCP Family Medicine; Visit Provider Nurse Practitioner Family
DX: I48.91 Unspecified atrial fibrillation (principal); I49.3 Ventricular premature depolarization
CPT/HCPCS: 93017; 93242

== ENCOUNTER → 2022-12-24 09:56 | Outpatient (BNV) | payer MEDICARE, SELFPAY | PROVIDERS: PCP Family Medicine; Visit Provider Nurse Practitioner | DX: I48.91 Unspecified atrial fibrillation (principal) | CPT/HCPCS: 93016; 93018; 93244 ==

== ENCOUNTER → 2022-12-28 08:15 | Outpatient (REF) | payer MEDICARE, SELFPAY ==
--- NOTE | 2022-12-28 08:18 | CA_ITS ---
Transthoracic Echocardiogram Patient (Last, First, Middle): Edith Solis A Gender: Female Date of : 1955 Age: 67 Procedure Date: 12/28/2022 Procedure Type: Transthoracic Echocardiogram Location: OP Height: 152.4 cm Weight: 77.11 kg BSA: 1.74 m2 Heart Rate: bpm BP: 128 / 68 mmHg Mill Turner: CLAUDIA Referring MD: Dede Arciniega LIFE SCIENCES MANAGERCandy Symptoms: I48.91 - Unspecified atrial fibrillation Study Quality: Adequate ECG Rhythm: Atrial Fibrillation Conclusions: - The left ventricular systolic function is normal. The visually estimated ejection fraction is between 60-65%. - The left atrium is severely dilated. - No obvious valvular pathology seen on this study. Findings Left Ventricle Normal left ventricular cavity size. There is mildly increased left ventricular wall thickness. The left ventricular systolic function is normal. The visually estimated ejection fraction is between 60-65%. There is no evidence of regional wall motion abnormalities. Diastolic function is indeterminate on the basis of available data. Right Ventricle Normal right ventricular cavity size and systolic function. Atria The left atrium is severely dilated. The right atrium is normal in size. Aortic Valve There is a normal trileaflet aortic valve. There is no aortic valve stenosis. There is no aortic valve regurgitation. Mitral Valve The mitral valve appears normal. There is trace mitral valve regurgitation. There is no mitral valve stenosis. Pulmonic Valve The pulmonic valve is likely normal. Tricuspid Valve Normal tricuspid valve structure. There is trace tricuspid valve regurgitation. There is no evidence of pulmonary hypertension. Great Vessels The asc aorta is normal in size. Venous The inferior vena cava is normal in size and collapses greater than 50% with inspiration. Pericardium/Pleural There is no evidence of pericardial effusion. Prior Study Comparison No prior study available for comparison. Recommendations, Care & Conclusions No obvious valvular pathology seen on this study. Measurements 2D Linear Measurements IVSd: 1.02 0.6-0.9/0.6-1.0 cm LVIDd: 3.52 3.9-5.3/4.2-5.9 cm LVIDd Index: 2.02 2.4-3.2/2.2-3.1 cm/m2 LVIDs: 2.23 2.0-3.6 cm LVPWd: 1.04 0.7-1.1 cm Ao Root: 3.00 2.1-3.5 cm LA Diam: 3.50 2.7-3.8/3.0-4.0 cm LAIDs Index: 2.01 1.5-2.3 cm/m2 LV Mass: 135.33 67-162/88-224 g LV Mass Index: 77.78 43-95/49-115 g/m2 LVOT Diam: 2.10 3.0+(-)1.3 cm 2D Systolic Function EF 4C: 53.00 >55% EF 2C: 57.20 >55% EF BiP: 55.50 >55% Mitral Valve MV Pk E: 0.93 MV Decel Time: 189.00 E'Lateral: 10.60 E'Medial: 9.03 E/E' Med: 10.20 E/E' Lat: 8.70 PHT: 55.00 MVA PHT: 4.00 Decel [place]: 4.89 Aortic Valve AoV Pk Leonard: 1.39 AoV Mn Leonard: 0.85 AoV VTI: 0.30 AoV Pk Grad: 8.00 Aov Mn Grad: 4.00 SWAPNA Cont.VTI: 1.74 LVOT LVOT Pk Leonard: 0.72 LVOT Mn Leonard: 0.49 LVOT VTI: 0.15 LVOT Pk Grad: 2.00 LVOT Mn Grad: 1.00 LVOT Diam: 2.10 LVOT Area: 3.46 Diastolic Function MV Pk E: 0.93 E'Medial: 9.03 E/E' Med: 10.20 E' Laterial: 10.60 E/E' Lat: 8.70 Right Ventricle TAPSE (mm): 24.00 TVS' Leonard: 14.00 Tricuspid Valve TR Pk Leonard: 2.06 TR Pk Grad: 17.00 RA Press: 3.00 RVSP: 20.00 Great Vessels Aorta Ao Root-2D: 3.00 2.0-3.7 cm Ao Asc: 3.00 2.1-3.4 cm Pulmonary Valve PV Pk Leonard: 0.82 Peak PV Grad: 3.00 Updated in Other Vendor System with Status of Final Salinas Gupta MD electronically signed on 12/28/2022 4:03:13 PM with status of Final
== END ==
LOC: HO.CARD 08:15
PROVIDERS: PCP Family Medicine; Visit Provider Family Medicine
DX: I48.91 Unspecified atrial fibrillation (principal); I49.3 Ventricular premature depolarization
CPT/HCPCS: 93306

== ENCOUNTER → 2022-12-28 08:18 | Outpatient (BNV) | payer MEDICARE, SELFPAY | PROVIDERS: PCP Family Medicine; Visit Provider Internal Medicine | DX: I48.91 Unspecified atrial fibrillation (principal) | CPT/HCPCS: 93306 ==

== ENCOUNTER 2023-02-09 15:20 | Outpatient (REF) | payer MEDICARE, SELFPAY ==
[2023-02-09 18:47] LABS: Influenza A PCR NEGATIVE (Negative); Influenza B PCR NEGATIVE (Negative); Resp Syncy Virus RNA Qual PCR NEGATIVE (Negative); SARS COV2 PCR INHOUSE NEGATIVE (Negative)
== END 2023-02-09 15:21 | disposition home or self-care (01) ==
LOC: HO.CHCLNP 15:20
PROVIDERS: Visit Provider Family Medicine
DX: J06.9 Acute upper respiratory infection, unspecified (principal); Z11.52 Encounter for screening for COVID-19
CPT/HCPCS: 0241U

== ENCOUNTER → 2023-02-22 09:01 | Outpatient (REF) | payer MEDICARE, SELFPAY | LOC: HO.SL 09:01 | PROVIDERS: PCP Family Medicine; Visit Provider Nurse Practitioner Family | DX: G47.33 Obstructive sleep apnea (adult) (pediatric) (principal); G47.10 Hypersomnia, unspecified | CPT/HCPCS: 95806 ==

== ENCOUNTER → 2023-02-22 12:30 | Outpatient (BNV) | payer MEDICARE, SELFPAY | PROVIDERS: PCP Family Medicine; Visit Provider Internal Medicine | DX: G47.33 Obstructive sleep apnea (adult) (pediatric) (principal) | CPT/HCPCS: 95806 ==

== ENCOUNTER 2023-02-25 15:48 | Outpatient (REF) | payer MEDICARE, SELFPAY ==
[2023-02-25 17:35] LABS: MANUAL DIFF FLAG NO
[2023-02-25 17:38] LABS: Basophils Absolute Auto 0.1 X10*3/uL (0.0-0.2); Basophils Percent Auto 0.8 % (0-2); Eosinophils Absolute Auto 0.3 X10*3/uL (0.0-0.4); Eosinophils Percent Auto 4.7 % (0-4); Hematocrit 41.5 % (37.0-47.0); Hemoglobin 14.3 g/dl (12.0-16.0); Imm Gran Abs Auto 0.01 X10*3/uL (0.00-0.03); Imm Gran Pct Auto 0.2 % (0.0-0.4); Lymphocytes Absolute Auto 1.4 X10*3/uL (1.2-4.9); Lymphocytes Percent Auto 23.1 % (20-40); Mean Corpuscular HGB Conc 34.5 g/dl (31.0-35.0); Mean Corpuscular Volume 89.8 fL (80.0-98.0); Mean Platelet Volume 11.5 fL (9.4-12.3); Monocytes Absolute Auto 0.4 X10*3/uL (0.1-1.2); Monocytes Percent Auto 6.9 % (2-11); Neutrophils Percent Auto 64.3 % (45-73); Platelet Count 211 X10*3/uL (160-400); Red Blood Count 4.62 X10*6/uL (4.20-5.50); White Blood Count 6.2 X10*3/uL (4.8-10.8)
[2023-02-25 18:35] LABS: TSH reflex Free T4 0.93 uIU/mL (0.32-4.0)
[2023-02-25 18:42] LABS: Alanine Aminotransferase 24 U/L (0-31); Albumin Level 4.2 g/dL (3.5-5.0); Alkaline Phosphatase 75 U/L (39-117); Anion Gap 12 (12-20); Aspartate Amino Transferase 25 U/L (5-31); Bilirubin Total 0.6 mg/dL (0.0-1.0); Blood Urea Nitrogen 18 mg/dL (9-16); Calcium 9.8 mg/dL (8.4-10.2); Carbon Dioxide 27 mmol/L (22-29); Chloride 104 mmol/L (96-108); Cholesterol 158 mg/dL (<200); Estimated Glomerular Filt Rate > 60; Glucose Random 89 mg/dL (60-115); HDL Cholesterol 44 mg/dL (>40); LDL Cholesterol Calculated 86 mg/dL (<100); Potassium 3.8 mmol/L (3.3-5.1); Sodium 139 mmol/L (135-145); Total Protein 6.8 g/dL (6.5-8.0); Triglycerides 143 mg/dL (<150)
[2023-02-27 05:12] LABS: ~HepC Num1 0.24 S/CO (0.00-0.79); ~Hepatitis C Antibody Nonreactive (Nonreactive)
== END 2023-02-25 15:49 | disposition home or self-care (01) ==
LOC: HO.CHCLDS 15:48
PROVIDERS: Visit Provider Family Medicine
DX: I10 Essential (primary) hypertension (principal)
CPT/HCPCS: 36415; 80053; 80061; 84443; 85025; 86803

== ENCOUNTER 2023-03-01 09:24 | Outpatient (AMB) | payer MEDICARE, SELFPAY ==
[2023-03-01 09:27] VITALS: BP 124/82; PULSE 63; BMI 34.1
--- NOTE | 2023-03-01 09:27 | MHC.OFFVIS ---
Intake Vital Signs 03/01/23 09:27 Height 5 ft Weight 174 lb 9.698 oz BMI 34.1 BP 124/82 Blood Pressure Location Rt brachial Position Sitting Pulse 63 Pulse Source Pulse Oximeter Intake Visit Reasons: follow up testing Allergies Penicillins Allergy (Unknown, Verified 03/01/23 09:29) Unknown HPI follow up testing HPI Details Edith is a 67-year-old female with past medical history of asthma, hypertension, newer finding of paroxysmal atrial fibrillation who recently underwent a holter, stress test, echocardiogram and sleep study and now presents for follow-up. Following her Holter, low-dose metoprolol was added. Today she reports that she has not had any documented AFib since starting the metoprolol. She continues to have symptoms of feeling mildly lightheaded and fatigued. She uses her Apple watch and a cardio mobile type device to check her heart rhythm when she is having symptoms. She has recorded variable heart rates, no significant bradycardia. She did have a recent fall down her stairs for unclear reason. She sustained an avulsion fracture in her right foot. She is still in need of left knee arthroscopic surgery. Her activity has been limited by these issues. No significant shortness of breath, no heart palpitations, presyncope, syncope, PND, orthopnea. She is concerned about the mild lightheadedness and feels this may have contributed to her fall but she does not recall feeling lightheaded that day. She had been taking her Eliquis as directed. She did have excess bruising in her right foot after the fall. She does report daytime fatigue. 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 Review of Systems ENT Reports dizziness Card Denies chest pain, Denies chest pain at rest, Denies chest pain with activity, Denies rapid heart rate, Denies pedal edema, Denies edema, Denies leg edema, Denies lightheadedness, Denies palpitations, Denies dyspnea, Denies dyspnea on exertion and Denies orthopnea Resp Denies cough, Denies dyspnea and Denies dyspnea on exertion GI Denies hematochezia and Denies change in stool character Musc Denies abnormal gait, Reports limited range of motion, Reports muscle cramps, Denies muscle weakness, Denies numbness, Denies radiating pain into limb, Denies stiffness and Denies tingling Neuro Denies abnormal gait, Reports dizziness, Denies numbness and Denies tingling Endo Denies palpitations Physical Exam Vital Signs: Last Vital Signs Pulse 63 03/01/23 09:27 BP 124/82 03/01/23 09:27 BMI result Body Mass Index 34.1 Const General: cooperative, healthy appearing, comfortable and no acute distress Orientation/consciousness: patient oriented x3 Neck Neck: Yes normal visual inspection Resp Effort & Inspection: normal respiratory effort Auscultation: clear to auscultation bilaterally, no crackles, no rales, no rhonchi and no wheezes Cardio Jugular venous distension: no JVD Rate: regular rate Rhythm: regular rhythm Heart sounds: S1 normal heart sound present, S2 normal heart sound present, no murmurs and no rubs Neuro General: patient oriented x3 Extrem General: Yes normal to inspection, No no pedal edema and No calf tenderness Psych Appearance: grossly normal Mental Status: mental status grossly normal Speech and movement: Normal speech and movement present Assessment & Plan Assessment & Plan (1) A-fib: Code(s): I48.91 - Unspecified atrial fibrillation Qualifiers: Atrial fibrillation type: paroxysmal Qualified Code(s): I48.0 - Paroxysmal atrial fibrillation Plan: New finding of paroxysmal atrial fibrillation when she arrived for knee surgery on 11/12/2022. Her surgery was canceled and she was transported to the emergency room. Initial EKG there showed atrial fibrillation slow ventricular response with heart rate 48. She did convert on her own to normal sinus rhythm with EKG showing sinus rhythm, first-degree AV block, can not exclude anterior septal infarct, rate 60. Chads Vasc score of 3. She was started on Eliquis 5 mg b.i.d., she did not require rate slowing medication. Labs that day showed TSH 0.82, creatinine 0.95, hematocrit 41.7. On follow up visit she reports that she had been able to use a home satellite project site monitor and identify her symptoms they are associated with AFib: She will feel mildly lightheaded, short of breath and fatigued. EKG done last visit showed sinus rhythm with 3 PVCs. She does not notice heart palpitations with the PVCs or the AFib. Holter monitor done 12/24/2022 for 4 days shows sinus rhythm with average heart rate 66, heart rate range 48 to 160, AFib 6.5% of time with heart rate up to 108, PVCs 7.5% of time. She was then started on low-dose metoprolol. An echocardiogram done 12/28/2022 showed EF 60-65%, left atrium severely dilated. An exercise stress test done 12/24/2022 showed exercise 8 minutes 31 seconds, mild shortness of breath, no EKG changes of ischemia. A home sleep study done on 02/28/2023 showed moderately severe sleep apnea with recommendation for CPAP. All test results reviewed with her in detail. Will refer to pulmonology for treatment of her sleep apnea. Continue metoprolol for heart rate control. Continue Eliquis for anticoagulation. Will plan for repeat Holter in a few months after she has been on treatment for her sleep apnea. Cardiology follow-up 4 months, sooner if needed (2) PVC's (premature ventricular contractions): Code(s): I49.3 - Ventricular premature depolarization Plan: As above. Asymptomatic. Echo with normal EF (3) HTN (hypertension): Code(s): I10 - Essential (primary) hypertension Qualifiers: Hypertension type: primary hypertension Qualified Code(s): I10 - Essential (primary) hypertension Plan: adequately controlled at present. (4) Tear of medial meniscus of left knee: Code(s): S83.242A - Other tear of medial meniscus, current injury, left knee, initial encounter Plan: Will be preop in the near future, arthroscopic surgery left knee with at [facility] [place]. Reviewed with Dr. Gutpa. Low cardiac risk. Continue metoprolol. Eliquis could be held 48 hours prior to surgery and restarted as soon as cleared by surgeon to do so. She has known paroxysmal AFib and PVCs, both of which she tolerates well. (5) Obstructive sleep apnea: Code(s): G47.33 - Obstructive sleep apnea (adult) (pediatric) Plan: New diagnosis of sleep apnea. Referring to pulmonology. Plan Time spent on chart review, documentation, interview and assessment Orders: Referrals Pulmonary Medicine Referral G47.33 - Obstructive sleep apnea (adult) (pediatric) Coding Level of Care Code Est Pt Level 4 (03182) Diagnoses Paroxysmal atrial fibrillation I48.0 Atrial fibrillation type: paroxysmal PVC's (premature ventricular contractions) I49.3 Primary hypertension I10 Hypertension type: primary hypertension Tear of medial meniscus of left knee S83.242A Obstructive sleep apnea G47.33 Time Spent (min) 28
== END 2023-03-01 10:03 | disposition home or self-care (01) ==
PROVIDERS: PCP Family Medicine; Visit Provider Nurse Practitioner Family
DX: I48.0 Paroxysmal atrial fibrillation (principal); I49.3 Ventricular premature depolarization; I10 Essential (primary) hypertension; S83.242A Other tear of medial meniscus, current injury, left knee, initial encounter; G47.33 Obstructive sleep apnea (adult) (pediatric)
CPT/HCPCS: 99214

== ENCOUNTER → 2023-03-01 09:24 | Outpatient (BNVA) | payer MEDICARE, SELFPAY | PROVIDERS: PCP Family Medicine; Visit Provider Nurse Practitioner Family | DX: I48.0 Paroxysmal atrial fibrillation (principal); I49.3 Ventricular premature depolarization; I10 Essential (primary) hypertension; G47.33 Obstructive sleep apnea (adult) (pediatric); S83.242A Other tear of medial meniscus, current injury, left knee, initial encounter; Z79.01 Long term (current) use of anticoagulants | CPT/HCPCS: 99212 ==

== ENCOUNTER 2023-03-11 10:19 | Outpatient (REF) | payer MEDICARE, SELFPAY ==
--- NOTE | ~2023-03-11 | XR_ITS ---
EXAMINATION: XR RIGHT ANKLE, RIGHT FOOT CLINICAL INFORMATION: Pain unspecified ankle and foot joints. COMPARISON: None available. TECHNIQUE: 2 views of the ankle and 3 views of the foot. FINDINGS: Right Ankle: Diffuse soft tissue swelling. The bones are diffusely demineralized. Moderate plantar calcaneal spur. Moderate dorsal calcaneal spurring. Right Foot: Mild degenerative changes with hypertrophic change in the first metatarsophalangeal joint. Alignment is preserved. Mild degenerative changes with hypertrophic change at the tarsometatarsal joints. XR/XR foot RT min 3V IMPRESSION: Diffuse soft tissue swelling. The bones are diffusely demineralized. Moderate plantar calcaneal spur. Moderate dorsal calcaneal spurring. Mild degenerative changes in the first metatarsophalangeal and tarsometatarsal joints. No displaced fracture. Recommend follow-up imaging in 10-14 days if fracture is suspected.
--- NOTE | ~2023-03-11 | XR_ITS ---
EXAMINATION: XR RIGHT ANKLE, RIGHT FOOT CLINICAL INFORMATION: Pain unspecified ankle and foot joints. COMPARISON: None available. TECHNIQUE: 2 views of the ankle and 3 views of the foot. FINDINGS: Right Ankle: Diffuse soft tissue swelling. The bones are diffusely demineralized. Moderate plantar calcaneal spur. Moderate dorsal calcaneal spurring. Right Foot: Mild degenerative changes with hypertrophic change in the first metatarsophalangeal joint. Alignment is preserved. Mild degenerative changes with hypertrophic change at the tarsometatarsal joints. XR/XR ankle RT min 3V IMPRESSION: Diffuse soft tissue swelling. The bones are diffusely demineralized. Moderate plantar calcaneal spur. Moderate dorsal calcaneal spurring. Mild degenerative changes in the first metatarsophalangeal and tarsometatarsal joints. No displaced fracture. Recommend follow-up imaging in 10-14 days if fracture is suspected.
== END 2023-03-11 10:20 | disposition home or self-care (01) ==
LOC: HO.HOSX 10:19
PROVIDERS: Visit Provider Physician Assistant
DX: S92.101A Unspecified fracture of right talus, initial encounter for closed fracture (principal); X58.XXXA Exposure to other specified factors, initial encounter; Y93.9 Activity, unspecified; Y92.9 Unspecified place or not applicable; Y99.9 Unspecified external cause status
CPT/HCPCS: 73610; 73630; 99212

== ENCOUNTER 2023-03-11 14:22 | Outpatient (AMB) | payer MEDICARE, SELFPAY ==
--- NOTE | 2023-03-11 14:31 | A.OFFVIS_ITS ---
Intake Intake Visit Reasons: Fc-fracture right talus, fracture morphology Intake Note: Edith is a 67 year old female who presents today for a evaluation of her right ankle fx, DOI 02/20/23. Patient had a mechanical fall leading her to injure her right ankle. She states her pain today is like a 5/10 on the pain scale since her swelling went down. Allergies Penicillins Allergy (Unknown, Verified 03/11/23 14:33) Unknown HPI Fc-fracture right talus, fracture morphology HPI Details 67-year-old female who presents in the o ice today for an evaluation of right ankle pain. The patient was referred to the Orthopedic off by Dr. Azar Jorgensen who saw the patient on 02/25/2023 status post a fall going down the stairs on 02/20/2023. She was diagnosed with a closed nondisplaced fracture of right talus, unspecified fracture morphology. She was placed in a walking boot. While in the office today the patient reports a mechanical fall that lead to her injurying her right ankle. She reports her pain as a 5/10 with decreased edema. 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 Resolving ecchymosis at the base of the toes and scattered throughout the foot and ankle; due to Eliquis use after the injury. She is able to dorsiflex and plantarflex. Slightly able to pronate and supinate with pain. Able to move all digits. Tenderness to palpation over the talus. NVI. Office Procedures Fracture Care Fracture Billing Code: Fracture Billing Code Assessment & Plan Assessment & Plan (1) Closed fracture of talus of right foot: Code(s): S92.101A - Unspecified fracture of right talus, initial encounter for closed fracture Plan Ms. Solis is a 67-year-old female who presents in the office today for an evaluation of right ankle pain. The patient was referred to the Orthopedic off by Dr. Azar Jorgensen who saw the patient on 02/25/2023 status post a fall going down the stairs on 02/20/2023. She was diagnosed with a closed nondisplaced fracture of right talus, unspecified fracture morphology. She was placed in a walking boot. While in the office today the patient reports a mechanical fall that lead to her injurying her right ankle. She reports her pain as a 5/10 with decreased edema. I discussed with the patient the proper treatment for this type of injury is typically a tall walking boot and non-weight bearing. 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 She was [facility] a [facility], which she reports was too big for her and therefore she did not wear the boot nor did she present in the boot at her appointment today. She is here today wearing sneakers. Therefore, she was refitted and given a tall walking boot, off the shelf, while in the office today. She was also given a prescription for a knee scooter. The patient was instructed if she is incapable of wearing the tall boot, we will provider her with a short boot to try to offer any stablility of potential fracture. I have placed an order for a CT scan to evaluate the integrity of the talus and surrounding structures. Follow up will be after the CT scan is obtained, or sooner if needed. X-rays of the right ankle which were obtained while in the office today and were reviewed by me, Mary Quezdaa PA-C, revealed a talus fracture of the right foot. Orders: Orders XR foot RT min 3V Today M79.673 - Pain in unspecified foot XR ankle RT min 3V Today M25.579 - Pain in unspecified ankle and joints of unspecified foot CT foot RT wo IV con Today S92.101A - Unspecified fracture of right talus, i nitial encounter for closed fracture Medications: New [Knee scooter] As directed 1 ea 0RF Patient Instructions: Scribed for Mary Quezada PA-C by Jocelyn Clark medical records library professor, on 03/11/2023 at 2:27 pm, EST. Coding Level of Care Code Est Pt Level 4 (70726) Diagnoses Closed fracture of talus of right foot S92.101A CPT Codes Fracture Care - Fracture Billing Code: Fracture Billing Code ([id number])
== END 2023-03-11 15:21 | disposition home or self-care (01) ==
PROVIDERS: PCP Family Medicine; Visit Provider Physician Assistant
DX: S92.101A Unspecified fracture of right talus, initial encounter for closed fracture (principal)
CPT/HCPCS: 99213

== ENCOUNTER 2023-03-31 15:03 | Outpatient (REF) | payer MEDICARE, SELFPAY ==
--- NOTE | ~2023-03-31 | CT_ITS ---
EXAMINATION: CT FOOT WITHOUT CONTRAST, RIGHT CLINICAL INFORMATION: Unspecified fracture of the talus. COMPARISON: Right foot dated 03/11/2023 TECHNIQUE: Multidetector volumetric imaging was obtained through the right foot without contrast material. Multiplanar reformatted images in coronal and sagittal orientations were submitted. This CT examination was performed using dose optimization techniques as appropriate, variously including the following: *Automated exposure control *Adjustment of mA and/or kV according to patient size (this includes techniques or standardized protocols for targeted exams where dose is matched to indication/reason for exam; i.e. extremities or head) *Use of iterative reconstruction technique DLP: 115 mGy-cm FINDINGS: At the dorsolateral margin of the talar head and neck, there is a cluster of small bone fragments measuring 0.5 x 0.6 x 0.2 cm, likely corresponding to avulsion injuries from the underlying talus at the attachment of the dorsal talonavicular joint capsule. There is a separate linear band of osseous fragments at the anterior tip of the anterior process of the calcaneus along its dorsal margin measuring 1 x 0.2 x 0.1 cm, consistent with an avulsion fracture at the attachments to the bifurcate ligament. There is a separate avulsion fracture at the lateral margin of the base of the cuboid, likely at the attachment of the dorsal calcaneocuboid ligament. No additional fractures. Tarsometatarsal joint alignment is normal. Minimal multifocal arthrosis in the midfoot characterized by tiny marginal osteophytes and subtle joint space narrowing. Talocrural and subtalar joints appear relatively well-preserved. Minimal osteoarthritis at the great toe MTP joint. No erosions. Enthesopathic spurring is present at the Achilles tendon insertion and plantar fascial origin. There is mild soft tissue swelling and subcutaneous edema at the foot, most pronounced at the dorsolateral aspect of the midfoot and hindfoot. CT/CT foot RT wo IV con IMPRESSION: 1. Avulsion fractures at the dorsolateral margin of the talar head and neck as well as at the anterior tip of the anterior process of the calcaneus at the attachments to the bifurcate ligament. 2. A separate avulsion fracture at the lateral margin of the base of the cuboid, likely at the attachment of the dorsal calcaneocuboid ligament. 3. Minimal multifocal arthrosis in the midfoot.
== END 2023-03-31 15:04 | disposition home or self-care (01) ==
LOC: HO.CT 15:03
PROVIDERS: PCP Family Medicine; Visit Provider Physician Assistant
DX: S92.101A Unspecified fracture of right talus, initial encounter for closed fracture (principal); X58.XXXA Exposure to other specified factors, initial encounter; Y93.9 Activity, unspecified; Y92.9 Unspecified place or not applicable; Y99.9 Unspecified external cause status
CPT/HCPCS: 73700

== ENCOUNTER 2023-04-08 14:34 | Outpatient (AMB) | payer MEDICARE, SELFPAY ==
[2023-04-08 14:36] VITALS: BP 104/67; PULSE 56; O2SAT 97; BMI 33.0
--- NOTE | 2023-04-08 14:36 | MHC.OFFVIS ---
Intake Vital Signs 04/08/23 14:36 Height 5 ft Weight 169 lb BMI 33.0 BP 104/67 Blood Pressure Location Rt brachial Position Sitting Pulse 56 Pulse Source Doppler Pulse Oximetry (%) 97 Oxygen Delivery Method Room Air Intake Visit Reasons: Obstructive sleep apnea Allergies Penicillins Allergy (Unknown, Verified 04/08/23 14:42) Unknown HPI Obstructive sleep apnea HPI Details 67-year-old lady, nonsmoker, with underlying history of intermittent asthma, recent diagnosis of AFib and moderate obstructive sleep apnea [facility] Patient has been using albuterol MDI as needed to control her asthma symptoms. She is interested in trying CPAP therapy for underlying obstructive sleep apnea. She does have 3 dogs. Patient does complain of multiple environmental allergies. Her father did have emphysema from heavy smoking. 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 Review of Systems Const Denies daytime sleepiness, Denies excessive sweating, Denies fatigue, Denies fever(s), Denies lethargy, Denies malaise, Denies night sweats, Denies snoring and Denies weight loss Eyes Denies blurry vision and Denies itchy eyes ENT Denies nasal congestion, Denies post nasal drip, Denies sinus pain, Denies sinus pressure and Denies other ( Thrush) Card Denies chest pain, Denies pedal edema, Denies dyspnea, Denies orthopnea and Denies paroxysmal nocturnal dyspnea Resp Denies cough, Denies hemoptysis, Denies excessive phlegm production, Denies dyspnea, Denies snoring and Denies wheezing GI Denies abdominal pain and Denies heartburn Musc Denies myalgias, Denies arthralgias and Denies joint swelling Skin/Breast Denies rash Neuro Denies memory loss and Denies seizure-like activity Psych Denies abnormal sleep pattern, Denies anxiety and Denies memory loss Endo Denies excessive sweating, Denies fatigue and Denies heat intolerance Satish/Lymph Denies easy bruising Aller/Immun Denies itchy eyes, Denies seasonal rhinorrhea and Denies wheezing Physical Exam Vital Signs: Last Vital Signs Pulse 56 04/08/23 14:36 BP 104/67 04/08/23 14:36 Pulse Ox 97 04/08/23 14:36 Oxygen Delivery Method Room Air 04/08/23 14:36 BMI result Body Mass Index 33.0 Const General: no acute distress and alert Nutritional Appearance: not obese Orientation/consciousness: Other orientation findings ( oriented) HEENT Head: Yes atraumatic Eyes General: appearance normal, both eyes and all related structures Sclerae: sclerae normal EOM: EOMs intact bilaterally Neck Neck: Yes supple Lymphatic: no lymphadenopathy noted Resp Effort & Inspection: normal respiratory effort and no use of accessory muscles Auscultation: clear to auscultation bilaterally Cardio Rate: regular rate Rhythm: regular rhythm Heart sounds: no gallops, no murmurs and no rubs Skin General skin exam: other ( warm) Extrem General: No clubbing, No cyanosis and No edema Assessment & Plan Assessment & Plan (1) Asthma: Code(s): J45.909 - Unspecified asthma, uncomplicated Plan: Asthma of unclear severity now reasonably controlled on albuterol MDI. Continue regimen. Will obtain full PFT. (2) Obstructive sleep apnea: Code(s): G47.33 - Obstructive sleep apnea (adult) (pediatric) Plan: Recent diagnosis of moderate obstructive sleep. Will start CPAP of 6-16 cm of water. Coding Level of Care Code New Pt Level 4 (25008) Diagnoses Asthma J45.909 Obstructive sleep apnea G47.33
== END 2023-04-08 15:08 | disposition home or self-care (01) ==
PROVIDERS: PCP Family Medicine; Referring Provider Nurse Practitioner Family; Visit Provider Internal Medicine Pulmonary Disease
DX: J45.909 Unspecified asthma, uncomplicated (principal); G47.33 Obstructive sleep apnea (adult) (pediatric)
CPT/HCPCS: 99204; 99214

== ENCOUNTER → 2023-04-08 14:34 | Outpatient (BNVA) | payer MEDICARE, SELFPAY | PROVIDERS: PCP Family Medicine; Referring Provider Nurse Practitioner Family; Visit Provider Internal Medicine Pulmonary Disease | DX: J45.909 Unspecified asthma, uncomplicated (principal); G47.33 Obstructive sleep apnea (adult) (pediatric) | CPT/HCPCS: 99202 ==

== ENCOUNTER 2023-04-11 13:33 | Outpatient (AMB) | payer MEDICARE, SELFPAY ==
--- NOTE | 2023-04-11 13:36 | A.OFFVIS_ITS ---
Intake Intake Visit Reasons: ov-CT Foot RT review Intake Note: Edith is a 67 year old female who presents today for a CT scan review of her right foot talus fx, DOI 02/20/23. CT scan was done on 03/31/23. Patient reports her pain is much better than it was and the swelling has gone done almost completey. She states she wears an ankle brace all day. Allergies Penicillins Allergy (Unknown, Verified 04/11/23 13:36) Unknown HPI ov-CT Foot RT review HPI Details 67-year-old female who presents in the o [facility] today for a follow up of a right foot talus fracture, which occurred on 02/25/2023 status post a fall going down the stairs on 02/20/2023. I last saw the patient in the office on 03/11/2023 where she was placed in a short walking boot, a prescription for a knee scooter, and referred for a CT scan. While in the office today the patient reports her pain is much better, her edema has gone down and is almost completely gone. She confirms the use of the ankle brace and reports she wears it all day. 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 No ecchymosis, erythema, or edema. No tenderness to palpation over all anatomical landmarks. Sensation intact. Pedal pulse intact. Assessment & Plan Assessment & Plan (1) Closed fracture of talus of right foot: Code(s): S92.101A - Unspecified fracture of right talus, initial encounter for closed fracture Qualifiers: Encounter type: subsequent encounter Fracture alignment: nondisplaced Fracture healing: with routine healing Talus location: unspecified portion of talus Qualified Code(s): S92.101D - Unspecified fracture of right talus, subsequent encounter for fracture with routine healing Plan Ms. Solis is a 67-year-old female who presents in the office today for a follow up of a right foot talus fracture, which occurred on 02/25/2023 status post a fall going down the stairs on 02/20/2023. I last saw the patient in the office on 03/11/2023 where she was placed in a short walking boot, a prescription for a knee scooter, and referred for a CT scan. While in the office today the patient reports her pain is much better, her edema has gone down and is almost completely gone. She confirms the use of the ankle brace and reports she wears it all day. The patient has weaned out the boot on her own. She currently using a compression sleeve that offers her support and soreness relief. She may return to normal activities as tolerated. Of note: The patient was scheduled for left knee arthroscopy with Dr. Cosme, but was postponed the day of surgery due to being in Afib. She had seen her glove former on 03/01/[address] Dede Arciniega, who cleared her to proceed. She was informed she will stop the eliquis 48 hours prior to surgery and she will restart as soon as she is cleared by Dr. Cosme to do so. This information was given to the surgical schedulers who will reach out to the patient to schedule accordingly. Follow up will be PRN, or sooner if needed. CT scan of the right foot, obtained on 03/31/2023, revealed: 1. Avulsion fractures at the dorsolateral margin of the talar head and neck as well as at the anterior tip of the anterior process of the calcaneus at the attachments to the bifurcate ligament. 2. A separate avulsion fracture at the lateral margin of the base of the cuboid, likely at the attachment of the dorsal calcaneocuboid ligament. 3. Minimal multifocal arthrosis in the midfoot. Patient Instructions: Scribed by Jocelyn Clark senior medical director, for Mary Damien DOMINGUEZ on 04/11/2023 at 1:39 pm, EST. Coding Level of Care Code Est Pt Level 4 (14105) Diagnoses Closed nondisplaced fracture of right talus with routine healing, unspecified portion of talus, subsequent encounter S92.101D Encounter type: subsequent encounter Fracture alignment: nondisplaced Fracture healing: with routine healing Talus location: unspecified portion of talus
== END 2023-04-11 14:16 | disposition home or self-care (01) ==
PROVIDERS: PCP Family Medicine; Visit Provider Physician Assistant
DX: S83.242A Other tear of medial meniscus, current injury, left knee, initial encounter (principal); S92.101D Unspecified fracture of right talus, subsequent encounter for fracture with routine healing
CPT/HCPCS: 99214

== ENCOUNTER → 2023-04-11 13:33 | Outpatient (BNVA) | payer MEDICARE, SELFPAY | PROVIDERS: PCP Family Medicine; Visit Provider Physician Assistant | DX: S92.101D Unspecified fracture of right talus, subsequent encounter for fracture with routine healing (principal) | CPT/HCPCS: 99212 ==

== ENCOUNTER 2023-05-04 08:39 | Outpatient (AMB) | payer MEDICARE, SELFPAY ==
--- NOTE | 2023-05-04 08:40 | MHC.OFFVIS ---
Intake Vital Signs 05/04/23 08:41 Height 5 ft Weight 169 lb BMI 33.0 Intake Visit Reasons: OV- Left Knee Discuss Surgery Intake Note: Edith presents to the office today for a new patient visit for left knee pain and giving way. The patient states that her symptoms have gotten worse over the last few months in spite of continued non operative treatments. She has tried wearing a brace which gives her minimal relief. She has also had injections in the past which gave her no relief. She has done physical therapy for 12 weeks over the last 6 months which aggravated her pain. Patient states that her left knee will give out several times per day. The patient was scheduled to undergo left knee arthroscopic surgery several months ago. Her surgery was canceled because she was found to be in atrial fibrillation. The patient is currently on Eliquis. She states that her medical doctor has cleared her to proceed with left knee arthroscopic surgery. Allergies Penicillins Allergy (Unknown, Verified 05/04/23 08:52) Unknown Medication List - Last Reconciled 05/04/23 by Trevon Cosme MD amlodipine 5 mg PO DAILY apixaban (Eliquis) 5 mg PO BID cholecalciferol (vitamin D3) 50 mcg PO QAM [Knee scooter As directed] metoprolol succinate ER 25 mg PO DAILY venlafaxine ER 37.5 mg PO DAILY PFS Medical History A-fib Asthma HTN (hypertension) Surgical History H/O tubal ligation Family History Maternal Grandfather Diabetes Father Hx of emphysema Mother CHF (congestive heart failure) Stroke Sister History of kidney cancer Brother Bladder cancer Social History Household Members: Spouse Housing: House Alcohol intake: never Patient Tobacco Use Status: Never used Tobacco Current occupational status: employed 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, 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 Physical Exam Vital Signs: BMI result Body Mass Index 33.0 Const Other: Well-nourished well-developed very friendly female awake alert and oriented x3 in no acute distress Extrem Other: Bilateral lower extremity examination shows good capillary refill, no skin lesions noted, normal sensation light touch Left knee examination shows a minimal effusion, minimal crepitus with range of motion, tenderness along her medial joint line, positive Koby's test, no instability Results Reviewed Results Reviewed: MRI of the patient's left knee shows mild diffuse degenerative changes as well as a tear of the medial meniscus and possible tearing of her lateral meniscus Assessment & Plan Assessment & Plan (1) Tear of medial meniscus of left knee: Code(s): S83.242A - Other tear of medial meniscus, current injury, left knee, initial encounter Plan Ms. Solis presents with left knee pain and mechanical symptoms due to a tear of her medial meniscus and possible tearing of her lateral meniscus. The risks and benefits of left knee arthroscopic surgery were discussed at length with the patient. The patient wishes to proceed with surgery. At this point she has failed continued non operative treatments. Surgery will most likely involve left knee diagnostic arthroscopy with partial medial meniscectomy and possible partial lateral meniscectomy. The patient does understand that she may not get 100% relief of her symptoms depending on the severity of her degenerative changes. The patient will be scheduled for next available date. She will follow-up as instructed. Feel free to call me at any time should questions regarding her orthopedic management arise. I spent 22 minutes in reviewing the patient's records and imaging studies, seeing the patient and documenting in the medical record. Coding Level of Care Code Est Pt Level 2 (34781) Diagnoses Tear of medial meniscus of left knee S83.242A
[2023-05-04 08:41] VITALS: BMI 33.0
== END 2023-05-04 09:08 | disposition home or self-care (01) ==
PROVIDERS: PCP Family Medicine; Visit Provider Orthopaedic Surgery
DX: S83.242A Other tear of medial meniscus, current injury, left knee, initial encounter (principal)
CPT/HCPCS: 99213

== ENCOUNTER → 2023-05-04 08:39 | Outpatient (BNVA) | payer MEDICARE, SELFPAY | PROVIDERS: PCP Family Medicine; Visit Provider Orthopaedic Surgery | DX: S83.242A Other tear of medial meniscus, current injury, left knee, initial encounter (principal); X58.XXXA Exposure to other specified factors, initial encounter; Y93.9 Activity, unspecified; Y92.9 Unspecified place or not applicable; Y99.9 Unspecified external cause status | CPT/HCPCS: 99212 ==

== ENCOUNTER 2023-05-20 09:32 | Outpatient (REF) | payer MEDICARE, SELFPAY | END 2023-05-20 09:33 | disposition home or self-care (01) | LOC: HO.RESP 09:32 | PROVIDERS: Visit Provider Internal Medicine Pulmonary Disease | DX: Z13.89 Encounter for screening for other disorder (principal) ==

== ENCOUNTER 2023-05-23 09:40 | Outpatient (REF) | payer MEDICARE, SELFPAY ==
[2023-05-23 08:11] VITALS: PULSE 67; RESP 16; O2SAT 97
--- NOTE | 2023-05-23 11:06 | PFT_ITS ---
Flows: FEV1: 77 % of predicted at 1.56 L FVC: 85 % of predicted at 2.18 L FEV1/FVC: 72 % Bronchodilator response: Absent Volumes: Total lung capacity: 92 % of predicted at 3.99 L Residual volume: 112 % of predicted at 1.82 L Slow vital capacity: 79 % of predicted at 2.18 L Expiratory reserve volume: 51 % of predicted at 0.3 to L Diffusion capacity: Normal Impression: No obstructive or restrictive ventilatory defect. No bronchodilator response. Normal pulmonary function test. MTDD
== END 2023-05-23 09:41 | disposition home or self-care (01) ==
LOC: HO.RESP 09:40
PROVIDERS: PCP Family Medicine; Visit Provider Internal Medicine Pulmonary Disease
DX: J45.909 Unspecified asthma, uncomplicated (principal)
CPT/HCPCS: 94010; 94640; 94727; 94729

== ENCOUNTER → 2023-05-23 11:06 | Outpatient (BNV) | payer MEDICARE, SELFPAY | PROVIDERS: PCP Family Medicine; Visit Provider Internal Medicine Pulmonary Disease | DX: J45.909 Unspecified asthma, uncomplicated (principal) | CPT/HCPCS: 94060; 94727; 94729 ==

== ENCOUNTER 2023-05-24 10:02 | Outpatient (AMB) | payer MEDICARE, SELFPAY ==
[2023-05-24 10:04] VITALS: BP 117/64; PULSE 65; O2SAT 96; BMI 33.0
--- NOTE | 2023-05-24 10:04 | A.OFFVIS_ITS ---
Intake Vital Signs 05/24/23 10:04 Height 5 ft Weight 169 lb BMI 33.0 BP 117/64 Blood Pressure Location Lt brachial Position Sitting Pulse 65 Pulse Source Doppler Pulse Oximetry (%) 96 Oxygen Delivery Method Room Air Intake Visit Reasons: L Knee / Allergies Penicillins Allergy (Unknown, Verified 05/24/23 10:08) Unknown HPI L Knee / HPI Details 67-year-old lady, nonsmoker, followed fo r asthma and obstructive sleep apnea. She continues to use albuterol MDI as needed with good control of her asthma symptoms. Patient was started on CPAP and is still getting used to using it. She denies recent exacerbations. Patient did have her pulmonary function tests. 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, 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 Review of Systems Const Denies daytime sleepiness, Denies excessive sweating, Denies fatigue, Denies fever(s), Denies lethargy, Denies malaise, Denies night sweats, Denies snoring and Denies weight loss Eyes Denies blurry vision and Denies itchy eyes ENT Denies nasal congestion, Denies post nasal drip, Denies sinus pain, Denies sinus pressure and Denies other ( Thrush) Card Denies chest pain, Denies pedal edema, Denies dyspnea, Denies orthopnea and Denies paroxysmal nocturnal dyspnea Resp Denies cough, Denies hemoptysis, Denies excessive phlegm production, Denies dyspnea, Denies snoring and Denies wheezing GI Denies abdominal pain and Denies heartburn Musc Denies myalgias, Denies arthralgias and Denies joint swelling Skin/Breast Denies rash Neuro Denies memory loss and Denies seizure-like activity Psych Denies abnormal sleep pattern, Denies anxiety and Denies memory loss Endo Denies excessive sweating, Denies fatigue and Denies heat intolerance Satish/Lymph Denies easy bruising Aller/Immun Denies itchy eyes, Denies seasonal rhinorrhea and Denies wheezing Physical Exam Vital Signs: Last Vital Signs Pulse 65 05/24/23 10:04 BP 117/64 05/24/23 10:04 Pulse Ox 96 05/24/23 10:04 Oxygen Delivery Method Room Air 05/24/23 10:04 BMI result Body Mass Index 33.0 Const General: no acute distress and alert Nutritional Appearance: not obese Orientation/consciousness: Other orientation findings ( oriented) HEENT Head: Yes atraumatic Eyes General: appearance normal, both eyes and all related structures Sclerae: sclerae normal EOM: EOMs intact bilaterally Neck Neck: Yes supple Lymphatic: no lymphadenopathy noted Resp Effort & Inspection: normal respiratory effort and no use of accessory muscles Auscultation: clear to auscultation bilaterally Cardio Rate: regular rate Rhythm: regular rhythm Heart sounds: no gallops, no murmurs and no rubs Skin General skin exam: other ( warm) Extrem General: No clubbing, No cyanosis and No edema Assessment & Plan Assessment & Plan (1) Asthma: Code(s): J45.909 - Unspecified asthma, uncomplicated Plan: Results of pulmonary function test reviewed. Underlying mild intermittent asthma now well controlled on albuterol MDI. Continue current regimen. (2) Obstructive sleep apnea: Code(s): G47.33 - Obstructive sleep apnea (adult) (pediatric) Plan: Patient was started on CPAP machine and she is still getting used to sleeping visit. Continue current CPAP therapy. (3) Encounter for preoperative pulmonary examination: Code(s): Z01.811 - Encounter for preprocedural respiratory examination Plan: At this time patient is at low risk for pulmonary perioperative complications for the proposed meniscectomy under general anesthesia. Coding Level of Care Code Est Pt Level 4 (89018) Diagnoses Asthma J45.909 Obstructive sleep apnea G47.33 Encounter for preoperative pulmonary examination Z01.811
== END 2023-05-24 10:54 | disposition home or self-care (01) ==
PROVIDERS: PCP Family Medicine; Visit Provider Internal Medicine Pulmonary Disease
DX: J45.909 Unspecified asthma, uncomplicated (principal); G47.33 Obstructive sleep apnea (adult) (pediatric); Z01.811 Encounter for preprocedural respiratory examination
CPT/HCPCS: 99214

== ENCOUNTER → 2023-05-24 10:02 | Outpatient (BNVA) | payer MEDICARE, SELFPAY | PROVIDERS: PCP Family Medicine; Visit Provider Internal Medicine Pulmonary Disease | DX: Z01.811 Encounter for preprocedural respiratory examination (principal); J45.909 Unspecified asthma, uncomplicated; G47.33 Obstructive sleep apnea (adult) (pediatric) | CPT/HCPCS: 99212 ==

== ENCOUNTER 2023-05-27 05:56 | Day surgery (SDC) | payer MEDICARE, SELFPAY ==
[2023-05-24 09:05] VITALS: BMI 33.0
--- NOTE | 2023-05-25 11:47 | P.CONAN_ITS ---
Documented by User: Mary Starr NP 05/25/23 11:49 HPI - Anesthesia Eval Consult details Narrative: 67yo F for Left Knee Arthroscopy with partial medial meniscectomy, possible lateral meniscectomy Cx'd 10/2022 for new onset afib DOS. Follows with [facility] cardiology since. Eliquis. Cardiac cleared Pulmo cleared [facility] Active Problems Active Problems: All Active Problems Encounter for preoperative pulmonary examination (Acute) Closed fracture of talus of right foot (Acute) Obstructive sleep apnea (Acute) Hypersomnia (Acute) Hospital discharge follow-up (Acute) PVC's (premature ventricular contractions) (Acute) Tear of medial meniscus of left knee (Acute) Asthma (Acute) A-fib (Acute) HTN (hypertension) (Acute) Past Medical History Medical History PVC (premature ventricular contraction) Sleep apnea A-fib Asthma HTN (hypertension) Family History Family History Maternal Grandfather Diabetes Father Hx of emphysema Mother CHF (congestive heart failure) Stroke Sister History of kidney cancer Brother Bladder cancer Surgical History Surgical History H/O tubal ligation Social History Social History Household Members: Spouse Housing: House Alcohol intake: never Patient Tobacco Use Status: Never used Tobacco Use of substances other than those prescribed or required for medical reasons: No Are you DNR?: No Advance Directives: No Advance Directives Information Provided: Yes Current occupational status: employed 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, 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 Meds Allergies Allergy/AdvReac Type Severity Reaction Status Date / Time Penicillins Allergy Unknown Unknown Verified 05/24/23 10:08 Active Medications: Current Medications Clindamycin Phosphate (Cleocin) 900 mg in 50 mls @ 50 mls/hr IV PREOP ONE Stop: 05/27/23 06:22 Home Medications ?Medication ?Instructions ?Recorded ?Confirmed ?Last Taken ?Type amlodipine 5 mg tablet 5 mg PO DAILY 10/19/22 05/24/23 05/27/23 History cholecalciferol (vitamin D3) 50 50 mcg PO QAM 10/19/22 05/24/23 Unknown History mcg (2,000 unit) tablet venlafaxine 37.5 mg 37.5 mg PO DAILY 10/19/22 05/24/23 Unknown History capsule,extended release 24 hr Exam Height,Weight and Vital Signs: Height 5 ft Weight 76.657 kg Pertinent Lab Results Pertinent Lab Results: Laboratory Tests 02/25/23 15:53 WBC 6.2 Hgb 14.3 Hct 41.5 Plt Count 211 Sodium 139 Potassium 3.8 Chloride 104 Carbon Dioxide 27 BUN 18 H Creatinine 0.66 Narrative Narrative: EKG 2022 Sinus rhythm with first-degree AV block, frequent PVCs, septal Q-wave, rate 75, QTC 439 milliseconds ECHO 12/2022 Conclusions: - The left ventricular systolic function is normal. The visually estimated ejection fraction is between 60-65%. - The left atrium is severely dilated. - No obvious valvular pathology seen on this study. Exercise stress 12/2022 Protocol: JAM Max HR: 137 BPM 88% of Pred: 154 BPM Max BP: 182/082 mmHG Max Work Load: 10.1 METS Exercise stress test exercise 8 min 31 sec of Jam protocol achieving 88%, with mild SOB, no chest discomfort, with isoalted PVCs, with normotensive response, without EKG changes. Test reviewed with Dr. Barksdale. Assessment and Plan Assessment Anesthesia Assessment: Chart Reviewed Documented by User: Aide Bowen MD 05/27/23 07:29 [facility] Past Medical History Medical History PVC (premature ventricular contraction) Sleep apnea A-fib Asthma HTN (hypertension) Family History Family History Maternal Grandfather Diabetes Father Hx of emphysema Mother CHF (congestive heart failure) Stroke Sister History of kidney cancer Brother Bladder cancer Family history of problems with anesthesia: No Surgical History Surgical History H/O tubal ligation History of Problems with Anesthesia: No Social History Social History Household Members: Spouse Housing: House Alcohol intake: never Patient Tobacco Use Status: Never used Tobacco Use of substances other than those prescribed or required for medical reasons: No Are you DNR?: No Advance Directives: No Advance Directives Information Provided: Yes Current occupational status: employed 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, 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 Meds Allergies Allergy/AdvReac Type Severity Reaction Status Date / Time Penicillins Allergy Unknown Unknown Verified 05/24/23 10:08 Home Medications ?Medication ?Instructions ?Recorded ?Confirmed ?Last Taken ?Type amlodipine 5 mg tablet 5 mg PO DAILY 10/19/22 05/24/23 05/27/23 History cholecalciferol (vitamin D3) 50 50 mcg PO QAM 10/19/22 05/24/23 Unknown History mcg (2,000 unit) tablet venlafaxine 37.5 mg 37.5 mg PO DAILY 10/19/22 05/24/23 Unknown History capsule,extended release 24 hr Exam Airway Heart: rrr Lungs: Cta Assessment and Plan Assessment Anesthesia Assessment: Anesthesia Plan Discussed Final Anesthetic Review Family History of Problems with Anesthesia: No History of Problems with Anesthesia: No NPO: Yes ASA Class: III Final Preanesthetic Review: No Changes in Pt Med Stat, Meds/Allgs Chart Reviewed, Consent Obtained/Reviewed and Anes Risks/Benef Reviewed Patient Risk: Intermediate Procedure Risk: Low Anesthetic Plan Anesthetic Plan: GA Disposition: Standard PACU
[2023-05-27] VITALS (9 sets, daily range): BP systolic 103–126; BP diastolic 53–71; PULSE 54–68; RESP 12–18; TEMP 36.2–37; O2SAT 92–100; BMI 34.3
[2023-05-27] MEDS: Lactated Ringers 1,000 ML 100 ML IVCONT (06:39)
[2023-05-27] MEDS: Albuterol Sulfate (0.083%) 2.5 MG/3 ML VIAL.NEB INHALE (06:50)
--- NOTE | 2023-05-27 08:50 | PM.OP ---
Brief Operative Note Date of Service: 05/27/23 Pre-op diagnosis: Left knee medial meniscus tear, left knee degenerative joint disease Post-op diagnosis: same Procedure: Left knee arthroscopic partial medial meniscectomy, left knee arthroscopic chondroplasty of the undersurface of the patella as well as the medial femoral condyle Implants: None Surgeon: Trevon Cosme MD Anesthesia: GLMA Was an Bargain Table Clerk used for this Procedure?: No Estimated blood loss (mL): 10 Pathology: none sent Condition: stable Disposition: PACU
--- NOTE | 2023-05-27 08:51 | W.PM.OPN ---
Operative Note Operative Note Date of Service: 05/27/23 Narrative: After the patient was identified as Edith Solis and her left knee was initialed by myself they were brought to the operating room where general anesthesia was induced by the anesthesiologist in routine fashion. Because of the patient's allergy to penicillin she was given 900 mg of IV clindamycin preoperatively for infection prophylaxis. The patient's left lower extremity was prepped and draped in sterile fashion. A formal time-out was completed. Marcaine was injected into the planned incision sites as well as the patient's left knee joint. A #11 scalpel blade was used to make an anterolateral portal 1 cm proximal to the joint line and 1 cm lateral to the patellar tendon. Blunt trocar technique was used to enter the suprapatellar pouch with the knee in extension. Diagnostic arthroscopy showed multiple bands of thickened plica which would be excised at the end of the procedure. There were no loose bodies or abnormalities found in either the medial or lateral gutters. The articular surface of the patella showed diffuse grades 1 and 2 degenerative changes. The trochlear groove articular surface showed diffuse grade 1 degenerative changes. The patient's knee was flexed to 45 degrees and a valgus force was placed upon it. The medial compartment was entered. An anteromedial portal was made 1 cm proximal to the joint line and 1 cm medial to the patellar tendon. Probing of the medial meniscus showed a radial tear of the posterior horn. A partial medial meniscectomy was performed using the arthroscopic shaver. Following the partial meniscectomy the remainder of the meniscus tissue was stable. There were diffuse grade 2 degenerative changes of the medial femoral condyle as well as grade 1 degenerative changes of the medial tibial plateau. The articular surface of the medial femoral condyle was then made smooth using the arthroscopic shaver. The articular surface of the medial tibial plateau was already smooth so no chondroplasty was indicated. The patient's knee was placed into a neutral position. There was no injury to the anterior cruciate ligament. The patient's knee was then placed in the figure of 4 position and the lateral compartment was entered. There was no evidence of lateral meniscus tearing. There were minimal degenerative changes of the lateral femoral condyle and lateral tibial plateau. The patient's knee was once again brought into extension and the suprapatellar pouch was entered. The arthroscopic shaver and the ArthroCare Wand were used to excise the thickened bands of plica. The undersurface of the patella was then made smooth using the arthroscopic shaver. The articular surface of the trochlear groove was already smooth so no chondroplasty was indicated. The knee joint was irrigated and then drained. All arthroscopic instruments were removed. The 2 portals were closed with 3-0 nylon interrupted suture. The knee joint was injected with Marcaine. Dry sterile dressing and Jermain bandages were placed over the patient's knee. The patient was awoken and extubated in the operating room. The patient was transferred to the recovery room in stable condition.
== END 2023-05-27 10:18 | disposition home or self-care (01) ==
PROVIDERS: PCP Family Medicine; Visit Provider Orthopaedic Surgery
PROC: (CPT 29870; principal; 2023-05-27 07:30)
DX: S83.242A Other tear of medial meniscus, current injury, left knee, initial encounter (principal); X58.XXXA Exposure to other specified factors, initial encounter; Y93.9 Activity, unspecified; Y92.9 Unspecified place or not applicable; Y99.8 Other external cause status; M17.12 Unilateral primary osteoarthritis, left knee; M67.52 Plica syndrome, left knee; M23.52 Chronic instability of knee, left knee; I48.91 Unspecified atrial fibrillation; I10 Essential (primary) hypertension; G47.33 Obstructive sleep apnea (adult) (pediatric); J45.909 Unspecified asthma, uncomplicated; Z79.01 Long term (current) use of anticoagulants; Z79.899 Other long term (current) drug therapy; Z88.0 Allergy status to penicillin
CPT/HCPCS: 29881; 94640; J0131; J0171; J0736; J1100; J1170; J1596; J2250; J2405; J2704; J2795; J3010

== ENCOUNTER → 2023-05-27 05:56 | Outpatient (BNV) | payer MEDICARE, SELFPAY | PROVIDERS: PCP Family Medicine; Visit Provider Orthopaedic Surgery | DX: S83.242A Other tear of medial meniscus, current injury, left knee, initial encounter (principal) | CPT/HCPCS: 29881 ==

== ENCOUNTER 2023-06-09 14:49 | Outpatient (AMB) | payer MEDICARE, OTHER, SELFPAY ==
--- NOTE | 2023-06-09 14:54 | MHC.OFFVIS ---
Intake Visit Reasons: PO LT knee 05/27/23 Intake Note: Edith a 67 year old female who presents today for a post operative left knee on 05/27/23 Patient reports she continues to have swelling and soreness however she is doing well. Allergies Penicillins Allergy (Unknown, Verified 06/09/23 14:55) Unknown HPI HPI PO LT knee 05/27/23 DR: Details: 67-year-old female who returns to the office today for post-op left knee , 05/27/[address] Cosme. She continues to have swelling and soreness in her knee however she is doing well overall. She has no other concerns today. 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 No erythema or effusion. ROM is 0-110 degrees. Calf supple, nontender. NVI. Results Reviewed Results Reviewed: Brief Operative Note Date of Service: 05/27/23 Pre-op diagnosis: Left knee medial meniscus tear, left knee degenerative joint disease Post-op diagnosis: same Procedure: Left knee arthroscopic partial medial meniscectomy, left knee arthroscopic chondroplasty of the undersurface of the patella as well as the medial femoral condyle Implants: None Surgeon: Trevon Cosme MD Assessment & Plan Assessment & Plan (1) Tear of medial meniscus of left knee: Code(s): S83.242A - Other tear of medial meniscus, current injury, left knee, initial encounter Category: Medical Plan Sutures removed today, steri strips applied. She will work on ROM and quad strengthening techniques at home which I did reviewed in office today. 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 I emphasized to avoid any type of deep squatting, twisting, or pivoting activities for the next 4 weeks, at which point she will see me back with Dr. Cosme, sooner if needed. Patient Instructions: Scribed for Antoine Ward PA-C, by Levi Linares medical secretary receptionist, on 06/09/2023 at 2:45 PM EST. I, Antoine Ward PA-C, have personally reviewed and agree with the information entered by the scribe. Coding Level of Care Code Global (36585) Diagnoses Tear of medial meniscus of left knee S83.242A
== END 2023-06-10 07:52 | disposition home or self-care (01) ==
PROVIDERS: PCP Family Medicine; Visit Provider Physician Assistant
DX: S83.242A Other tear of medial meniscus, current injury, left knee, initial encounter (principal)
CPT/HCPCS: 99024

== ENCOUNTER → 2023-06-09 14:49 | Outpatient (BNVA) | payer MEDICARE, SELFPAY | PROVIDERS: PCP Family Medicine; Visit Provider Physician Assistant | DX: S83.242D Other tear of medial meniscus, current injury, left knee, subsequent encounter (principal) | CPT/HCPCS: 99212 ==

== ENCOUNTER 2023-07-05 09:15 | Outpatient (AMB) | payer MEDICARE, OTHER, SELFPAY ==
--- NOTE | 2023-07-05 09:36 | A.OFFVIS_ITS ---
Intake Visit Reasons: PO LT knee 05/27/23 [id number] follow up Intake Note: Edith is a 67 year old female who presents for her post operative appointment s/p left knee on 05/27/23 . Patient reports she is doing well with some discomfort and has no other concerns at this time. She denies any locking or giving way. She has returned to work. Allergies Penicillins Allergy (Unknown, Verified 07/05/23 09:39) Unknown Medication List - Last Reconciled 07/05/23 by Trevon Cosme MD amlodipine 5 mg PO DAILY apixaban (Eliquis) 5 mg PO BID cholecalciferol (vitamin D3) 50 mcg PO QAM [Knee scooter As directed] metoprolol succinate ER 25 mg PO DAILY oxycodone 5 mg PO Q6H PRN 1 week venlafaxine ER 37.5 mg PO DAILY PFSH Medical History PVC (premature ventricular contraction) Sleep apnea A-fib Asthma HTN (hypertension) Surgical History H/O tubal ligation Family History Maternal Grandfather Diabetes Father Hx of emphysema Mother CHF (congestive heart failure) Stroke Sister History of kidney cancer Brother Bladder cancer Social History Household Members: Spouse Housing: House Alcohol intake: never Patient Tobacco Use Status: Never used Tobacco Current occupational status: employed 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 Solis continues to do well after undergoing left knee arthroscopic surgery on 05/27/2023. She will gradually progress to activities as tolerated. She will contact me prior to her follow-up appointment in 8 weeks should any questions or concerns arise. Feel free to call me at any time should questions regarding her orthopedic management arise. Coding Level of Care Code Global (92271) Diagnoses Left knee pain M25.562
== END 2023-07-05 10:00 | disposition home or self-care (01) ==
PROVIDERS: PCP Family Medicine; Visit Provider Orthopaedic Surgery
DX: M25.562 Pain in left knee (principal)
CPT/HCPCS: 99024

== ENCOUNTER → 2023-07-05 09:15 | Outpatient (BNVA) | payer MEDICARE, OTHER, SELFPAY | PROVIDERS: PCP Family Medicine; Visit Provider Orthopaedic Surgery | DX: Z47.89 Encounter for other orthopedic aftercare (principal); M25.562 Pain in left knee; Z98.890 Other specified postprocedural states | CPT/HCPCS: 99212 ==

== ENCOUNTER → 2023-09-13 08:54 | Outpatient (REF) | payer MEDICARE, SELFPAY ==
--- NOTE | 2023-09-13 08:57 | HM_ITS ---
* Total monitoring time 3 days. * Underlying rhythm is sinus with an average rate of 61/Min. * Rare supraventricular ectopy. * Rare ventricular ectopy. * Bradycardia/pauses/transient heart block during sleep hours. Longest pause about 3 seconds. Otherwise, no high-grade AV blocks. * No patient markers or diary events. MTDD
== END ==
LOC: HO.CARD 08:54
PROVIDERS: PCP Family Medicine; Visit Provider Nurse Practitioner Family
DX: I48.91 Unspecified atrial fibrillation (principal)
CPT/HCPCS: 93242

== ENCOUNTER → 2023-09-13 08:57 | Outpatient (BNV) | payer MEDICARE, SELFPAY | PROVIDERS: PCP Family Medicine; Visit Provider Internal Medicine | DX: I47.10 Supraventricular tachycardia, unspecified (principal); I44.39 Other atrioventricular block | CPT/HCPCS: 93244 ==

== ENCOUNTER 2023-10-03 13:20 | Outpatient (AMB) | payer MEDICARE, OTHER, SELFPAY ==
--- NOTE | 2023-10-03 13:24 | MHC.OFFVIS ---
Vital Signs 10/03/23 13:25 Height 5 ft Weight 175 lb 7.807 oz BMI 34.3 BP 114/72 Blood Pressure Location Lt brachial Position Sitting Pulse 64 Pulse Source Pulse Oximeter Intake Visit Reasons: 4 mth s/p cpap wearing x 2 mths Manager Medical Device Required: No Allergies Penicillins Allergy (Unknown, Verified 10/03/23 13:28) Unknown Medication List - Last Reconciled 10/03/23 by Dede Arciniega NP-C albuterol sulfate 90 mcg/actuation inhalation amlodipine 5 mg PO DAILY apixaban (Eliquis) 5 mg PO BID cholecalciferol (vitamin D3) 50 mcg PO QAM fluticasone propionate 50 mcg/actuation sprays intranasal [Knee scooter As directed] metoprolol succinate ER 25 mg PO DAILY venlafaxine ER 37.5 mg PO DAILY HPI HPI 4 mth s/p cpap wearing x 2 mths: Details: Edith is a 67-year-old female with past medical history of asthma, hypertension, newer finding of paroxysmal atrial fibrillation and moderately severe sleep apnea who now presents for follow-up. On last visit she had been referred to pulmonology. Today she reports that she has was seen by pulmonology and has been started on a CPAP mask. She tells me she has been wearing it most nights and is starting to get use to it. She believes she had an episode of atrial fibrillation back in August. She has not had any known AFib since then. She uses her [email or web address] watch and [employer] mobile device to check her heart rate and rhythm. No significant shortness of breath, no heart palpitations, presyncope, syncope, PND, orthopnea. No chest discomfort at rest or with activities. She has not had issues with recurrent lightheadedness. 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 She tells me she is at risk for dog bites and injuries. She was previously referred to Dr. Lubin for Watchman device. She tells me she has not been called by that office as of yet. 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 Review of Systems Const All systems reviewed & are unremarkable except as noted in HPI and below ENT Denies dizziness Card Details: palpitations in august, none since Denies chest pain, Denies chest pain at rest, Denies chest pain with activity, Denies rapid heart rate, Denies pedal edema, Denies edema, Denies leg edema, Denies lightheadedness, Denies palpitations, Denies dyspnea, Denies dyspnea on exertion and Denies orthopnea Resp Denies cough, Denies dyspnea and Denies dyspnea on exertion GI Denies hematochezia and Denies change in stool character Musc Denies abnormal gait, Denies limited range of motion, Denies muscle cramps, Denies muscle weakness, Denies numbness, Denies radiating pain into limb, Denies stiffness and Denies tingling Neuro Denies abnormal gait, Denies dizziness, Denies numbness and Denies tingling Endo Denies palpitations Physical Exam Vital Signs: Last Vital Signs Pulse 64 10/03/23 13:25 BP 114/72 10/03/23 13:25 BMI result Body Mass Index 34.3 Const General: cooperative, healthy appearing, comfortable and no acute distress Orientation/consciousness: patient oriented x3 Neck Neck: Yes normal visual inspection Resp Effort & Inspection: normal respiratory effort Auscultation: clear to auscultation bilaterally, no crackles, no rales, no rhonchi and no wheezes Cardio Jugular venous distension: no JVD Rate: regular rate Rhythm: regular rhythm Heart sounds: S1 normal heart sound present, S2 normal heart sound present, no murmurs and no rubs Neuro General: patient oriented x3 Extrem General: Yes normal to inspection, No no pedal edema and No calf tenderness Psych Appearance: grossly normal Mental Status: mental status grossly normal Speech and movement: Normal speech and movement present Assessment & Plan Assessment & Plan (1) A-fib: Comment: new dx 10/2022-now follows w/[facility]-taking eliquis/metoprolol for AFIB Code(s): I48.91 - Unspecified atrial fibrillation Category: Medical Qualifiers: Atrial fibrillation type: paroxysmal Qualified Code(s): I48.0 - Paroxysmal atrial fibrillation Plan: Newer finding of paroxysmal atrial fibrillation, 11/12/2022 when she came for knee surgery which was then canceled.. She initially did not require rate slowing medications but has since been started on metoprolol. Chads Vasc score of 3. She is on Eliquis for anticoagulation. She does not notice heart palpitations with AFib. Holter monitor done 12/24/2022 for 4 days shows sinus rhythm with average heart rate 66, heart rate range 48 to 160, AFib 6.5% of time with heart rate up to 108, PVCs 7.5% of time. It was at that time she was put on low-dose metoprolol. An echocardiogram done 12/28/2022 showed EF 60-65%, left atrium severely dilated. An exercise stress test done 12/24/2022 showed exercise 8 minutes 31 seconds, mild shortness of breath, no EKG changes of ischemia. A home sleep study done on 02/28/2023 showed moderately severe sleep apnea with recommendation for CPAP. On last visit she was referred to pulmonology and has since started on CPAP mask. She reports improving compliance. A repeat Holter done on 09/13/2023 for 3 days with her on CPAP shows sinus rhythm with average heart rate 61, rare ectopy, transient heart block during sleep. This time will continue metoprolol for heart rate control. Continue Eliquis for anticoagulation. She has been referred to Dr. Lubin for Watchman device. 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 Continue CPAP mask. Cardiology follow-up 6 months, sooner if needed. (2) PVC's (premature ventricular contractions): Code(s): I49.3 - Ventricular premature depolarization Category: Medical Plan: Frequent PVCs seen on 1st Holter as above. Asymptomatic. Echo with normal EF. On low-dose beta-norma and with CPAP repeat Holter shows only rare ectopy (3) HTN (hypertension): Code(s): I10 - Essential (primary) hypertension Category: Medical Qualifiers: Hypertension type: primary hypertension Qualified Code(s): I10 - Essential (primary) hypertension Plan: Well controlled at present. (4) Obstructive sleep apnea: Code(s): G47.33 - Obstructive sleep apnea (adult) (pediatric) Category: Medical Plan: Newer diagnosis of sleep apnea. Following with pulmonology. Plan Time spent on chart review, documentation, interview and assessment Coding Level of Care Code Est Pt Level 4 (44261) Diagnoses Paroxysmal atrial fibrillation I48.0 Atrial fibrillation type: paroxysmal PVC's (premature ventricular contractions) I49.3 Primary hypertension I10 Hypertension type: primary hypertension Obstructive sleep apnea G47.33 Time Spent (min) 30
[2023-10-03 13:25] VITALS: BP 114/72; PULSE 64; BMI 34.3
== END 2023-10-03 14:03 | disposition home or self-care (01) ==
PROVIDERS: PCP Family Medicine; Visit Provider Nurse Practitioner Family
DX: I48.0 Paroxysmal atrial fibrillation (principal); I49.3 Ventricular premature depolarization; I10 Essential (primary) hypertension; G47.33 Obstructive sleep apnea (adult) (pediatric)
CPT/HCPCS: 99214

== ENCOUNTER → 2023-10-03 13:20 | Outpatient (BNVA) | payer MEDICARE, OTHER, SELFPAY | PROVIDERS: PCP Family Medicine; Visit Provider Nurse Practitioner Family | DX: I10 Essential (primary) hypertension (principal); I48.0 Paroxysmal atrial fibrillation; I49.3 Ventricular premature depolarization; G47.33 Obstructive sleep apnea (adult) (pediatric); Z99.89 Dependence on other enabling machines and devices | CPT/HCPCS: 99212 ==

== ENCOUNTER 2024-04-17 09:33 | Outpatient (AMB) | payer MEDICARE, OTHER, SELFPAY ==
[2024-04-17 09:42] VITALS: BP 114/70; PULSE 81; BMI 33.7
--- NOTE | 2024-04-17 09:42 | MHC.OFFVIS ---
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 Required: No Allergies Penicillins Allergy (Unknown, Verified 04/17/24 09:47) Unknown Medication List - Last Reconciled 04/17/24 by Dede Arciniega, STAFF ASSISTANT-C albuterol sulfate 90 mcg/actuation inhalation apixaban (Eliquis) 5 mg PO BID cholecalciferol (vitamin D3) 50 mcg PO QAM dronedarone (Multaq) 400 mg PO BID fluticasone propionate 50 mcg/actuation sprays intranasal [Knee scooter As directed] metoprolol succinate ER 12.5 mg (1/2 x 25 mg) PO DAILY 90 days spironolactone (Aldactone) 25 mg PO DAILY venlafaxine ER 37.5 mg PO DAILY HPI HPI 6 mth f/up: Details: Edith is a 68-year-old female with past medical history of asthma, hypertension, newer finding of paroxysmal atrial fibrillation and moderately severe sleep apnea who now presents for follow-up. Today she reports that she has had a pulmonary illness for the last few weeks. She is improving but has a residual cough. No heart palpitations. Her fit bit has told her that she had some atrial fibrillation episodes in the fall and into January. Her fit bit broke 2 days ago. She has been compliant with her CPAP mask. No significant shortness of breath, no heart palpitations, presyncope, syncope, PND, orthopnea. No chest discomfort at rest or with activities. She has not had issues with lightheadedness. She underwent Watchman device placement in December. She says she was instructed to stop anticoagulation 2 weeks ago. She has what sounds like a transesophageal echocardiogram planned for 2 weeks from now. 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 Review of Systems Const All systems reviewed & are unremarkable except as noted in HPI and below ENT Denies dizziness Card Details: intermittent cough from recent illness Denies chest pain, Denies chest pain at rest, Denies chest pain with activity, Denies rapid heart rate, Denies pedal edema, Denies edema, Denies leg edema, Denies lightheadedness, Denies palpitations, Denies dyspnea, Denies dyspnea on exertion and Denies orthopnea Resp Denies cough, Denies dyspnea and Denies dyspnea on exertion GI Denies hematochezia and Denies change in stool character Musc Denies abnormal gait, Denies limited range of motion, Denies muscle cramps, Denies muscle weakness, Denies numbness, Denies radiating pain into limb, Denies stiffness and Denies tingling Neuro Denies abnormal gait, Denies dizziness, Denies numbness and Denies tingling Endo Denies palpitations Physical Exam Vital Signs: Last Vital Signs Pulse 81 04/17/24 09:42 BP 114/70 04/17/24 09:42 BMI result Body Mass Index 33.7 Const General: cooperative, healthy appearing, comfortable and no acute distress Orientation/consciousness: patient oriented x3 Neck Neck: Yes normal visual inspection Resp Effort & Inspection: normal respiratory effort Auscultation: clear to auscultation bilaterally, no crackles, no rales, no rhonchi and no wheezes Cardio Jugular venous distension: no JVD Rate: regular rate Rhythm: abnormal rhythm Heart sounds: S1 normal heart sound present, S2 normal heart sound present, no murmurs and no rubs Neuro General: patient oriented x3 Extrem General: Yes normal to inspection, No no pedal edema and No calf tenderness Psych Appearance: grossly normal Mental Status: mental status grossly normal Speech and movement: Normal speech and movement present Office Procedures EKG Details: Today, read by me, atrial fibrillation, septal Q-wave, rate 81, QTC 69248-[id number], Complete Assessment & Plan Assessment & Plan (1) A-fib: Comment: new dx 10/2022-now follows w/[facility]-taking eliquis/metoprolol for AFIB Code(s): I48.91 - Unspecified atrial fibrillation Category: Medical Qualifiers: Atrial fibrillation type: paroxysmal Qualified Code(s): I48.0 - Paroxysmal atrial fibrillation Plan: Newer finding of paroxysmal atrial fibrillation, asymptomatic, 11/12/2022 when she came for knee surgery which was then canceled. Chads Vasc score of 3. She was put on Eliquis for anticoagulation. Holter monitor done 12/24/2022 for 4 days shows sinus rhythm with average heart rate 66, heart rate range 48 to 160, AFib 6.5% of time with heart rate up to 108, PVCs 7.5% of time. Following that results she was put on low-dose metoprolol. An echocardiogram done 12/28/2022 showed EF 60-65%, left atrium severely dilated. An exercise stress test done 12/24/2022 showed exercise 8 minutes 31 seconds, mild shortness of breath, no EKG changes of ischemia. A home sleep study done on 02/28/2023 showed moderately severe sleep apnea with recommendation for CPAP. She has been referred to pulmonology and is now on CPAP mask and reports compliance. EKG done today shows atrial fibrillation, rate 81. With her age rhythm control is preferred. Reviewed with Dr. Barksdale. Will start on Multaq 400 mg b.i.d.. Will reduce metoprolol down to 12.5 mg daily. Will plan for office EKG in 1 week. Recommend she restart Eliquis for anticoagulation since she has not had her transesophageal echocardiogram post Watchman device yet. It sounds like this procedure is planned for 2 weeks from now. She is agreeable to this plan. If she has ongoing persistent atrial fibrillation she may require cardioversion. At this time I will put her in for an office visit in 2 months, sooner if needed. (2) PVC's (premature ventricular contractions): Code(s): I49.3 - Ventricular premature depolarization Category: Medical Plan: Frequent PVCs seen on 1st Holter as above. Asymptomatic. Echo with normal EF. On low-dose beta-norma and with CPAP repeat Holter shows only rare ectopy (3) HTN (hypertension): Code(s): I10 - Essential (primary) hypertension Category: Medical Qualifiers: Hypertension type: primary hypertension Qualified Code(s): I10 - Essential (primary) hypertension Plan: Well controlled at present. (4) Obstructive sleep apnea: Code(s): G47.33 - Obstructive sleep apnea (adult) (pediatric) Category: Medical Plan: Newer diagnosis of sleep apnea. Following with pulmonology. (5) Presence of Watchman left atrial appendage closure device: Code(s): Z95.818 - Presence of other cardiac implants and grafts Category: Medical Plan: Watchman device placed 01/02/2024. She states she has been taking aspirin along with her Eliquis until recently. We are having her restart Eliquis as above. Continue aspirin at this time. Reminded her of endocarditis prophylaxis for the 1st 6 months. She describes what sounds like john planned for 2 weeks from now. Plan Time spent on chart review, documentation, interview and assessment Medications: New dronedarone (Multaq) must administer with a meal/food 400 mg PO BID 60 tabs 5RF apixaban (Eliquis) 5 mg PO BID Changed From metoprolol succinate ER 25 mg PO DAILY 90 tabs 1RF To metoprolol succinate ER 12.5 mg (1/2 x 25 mg) PO DAILY 45 tabs 1RF 90 days Coding Level of Care Code Est Pt Level 4 (48819) Complex EM visit Add On G2211 Diagnoses Paroxysmal atrial fibrillation I48.0 Atrial fibrillation type: paroxysmal PVC's (premature ventricular contractions) I49.3 Primary hypertension I10 Hypertension type: primary hypertension Obstructive sleep apnea G47.33 Presence of Watchman left atrial appendage closure device Z95.818 CPT Codes EKG - CPT: 40291-[id number], Complete ([id number]) Time Spent (min) 30
--- OUTSIDE RECORDS SUMMARY | 2024-04-17 10:42 | XMS_ITS | Encounter Summary ---
Author Organization [facility] Address [address] [place] [address] Care Team Providers Care Crew Scheduler Name Role Phone Marla Chun Primary Care Provider [phone] Encounter Details Date Type Department Care Team (Late st Contact Info) Description 03/19/2024 Telephone [facility] 4th floor Cardiology Medicine [address] [place] [address] Mobile Engineer: Deneen Gilmore, MITRA [address] [place] [id number] Social History Tobacco Use Types Packs/Day Years Used Date Smoking Tobacco: Never Smokeless Tobacco: Never Comments:: Alcohol Use Standard Drinks/Week Comments Not Currently 0 (1 standard drink = 0.6 oz pur e alcohol) [facility] Utilities Answer Date Recorded In the past 12 months has e electric, gas, oil, or water company threatened to shut off services in your home? No 01/02/2024 Hunger Vital Sign Answer Date Recorded Within the past 12 months, y ou worried that your food would run out before you got the money to buy more. Never true 01/02/20 24 Within the past 12 months, t he food you bought just didn't last and you didn't have money to get more. Never true 01/02/2024 Transportation Answer Date Recorded In the past 12 months, has l ack of reliable transportation kept you from medical appointments, meetings, work or from getting things needed for daily living? No 01/02/2024 Housing Answer Date Recorded Housing Risk Low 2 01/02/2024 Housing Risk Medium Not on file 01/02/2024 Housing Risk High Not on file 01/02/2024 What is your living situation today? [facility] 01/02/2024 Comments Unknown Sex and Gender Information Value Date Recorded Sex Assigned at Female 11/30/2023 3:14 PM EDT Legal Sex Female 3:08 AM EDT Gender Identity Female 11/09/2023 11:42 AM EDT Sexual Orientation Straight 12/26/2023 12 :49 PM EST documented as of this encounter Miscellaneous Notes * Telephone Encounter - Deneen Villegas NP - 03/19/2024 1:14 PM EST Called pt to clarify she will discontinue Eliquis on 04/03 and will continue daily ASA as she is following [place] AF protocol. She is scheduled to return on 05/01 for SELVIN. documented in this encounter Plan of Treatment Upcoming Encounters Date Type Department Care Team (Late st Contact Info) Description 05/01/2024 Hospital Encounter [facility] [address] [place] [address] Madeline Prison Teacher, [address] [place] [address] 07/24/2024 8:00 AM EDT Telehealth [facility] Building 4th floor Cardiology Medicine [address] [place] [address] Mobile Engineer: Jill Topete NP [address] [place] [phone] Scheduled Procedures Name Priority Associated Diagnoses Date/Ti me SELVIN CASE Paroxysmal atrial fibrillation (HCC) documented as of this encounter Visit Diagnoses Not on filedocumented in this encounter Care Teams Crew Scheduler Relationship Specialty Start Date End Date Marla Chun [address] [place] [address] PCP - General 11/09/23 documented as of this encounter
--- OUTSIDE RECORDS SUMMARY | 2024-04-17 10:42 | XMS_ITS | Clinical Summary ---
Author Organization [employer] Address [address] [place] [address] [address] [place] [address] Care Team Providers Care Vp [employer] Name Role Phone Marla Chun MD Primary Care Provider [phone] Allergies Active Allergy Reactions Criticality Noted Date Comments Penicillin G Unknown 08/07/2021 Medications * This document contains information received from the source organization and may not represent a complete record from that organization. cetirizine (ZyrTEC) 10 MG tablet Take 10 mg by mouth in the morning. Active metoprolol succinate XL (Toprol-XL) 25 MG 24 hr tablet 3 Active apixaban (Eliquis) 5 MG tablet TAKE ONE TABLET TWICE DAILY 180 tablet 1 4 Active cholecalciferol VITAMIN D (Vitamin D-3) 50 MCG (1999 UT) tabletIndication s:Vitamin D deficiency TAKE ONE TABLET EVERY MORNING 90 tablet 1 4 Active venlafaxine XR (Effexor XR) 37.5 MG 24 hr capsuleIndicatio ns:Chronic migraine without aura without status migrainosus, not intractable TAKE ONE CAPSULE BY MOUTH EVERY DAY WITH FOOD 90 capsule 1 4 Active spironolactone (Aldactone) 25 MG tablet Take 25 mg by mouth Once per day. Active Multiple Vitamin (Multi-Vitamin) tablet Take 1 tablet by mouth Once per day. Active aspirin 81 MG chewable tablet Chew 81 mg Once per day. Active fluticasone (Flonase) 50 MCG/ACT nasal spray Administer 2 sprays into each nostril 2 times daily. Shake gently. Before first use, prime pump. After use, clean tip and replace cap. 16 g 4 Active albuterol (ProAir HFA) 108 (90 Base) MCG/ACT inhaler Inhale 2 puffs every 6 (six) hours if needed for wheezing. 8.5 g 4 Active Semaglutide-Weig ht Management (Wegovy) 0.25 MG/0.5ML solution auto-injectorInd ications:Obesity (BMI 30-39.9) 0.25 mg once a week. 2 mL 3 5 Active azithromycin (Zithromax) 250 MG tablet Take 2 tabs day and then 1 tab daily 6 tablet 5 Active Dextromethorphan -guaiFENesin (Mucinex DM) 30-600 MG tablet sustained-releas e 12 hour Use 1 tab TID 28 tablet 5 Active predniSONE (Deltasone) 20 MG tablet Take 2 tablets (40 mg) by mouth Once per day for 5 days. 10 tablet 5 04/11/19 25 Hospital, Clinic, or Other Facility Administered Medication Ordered Dose Route Frequency Start Date End Date Status ipratropium-albutero l (Duo-Neb) 0.5-2.5 mg/3 mL nebulizer solution 3 mgIndications:Acute bronchitis, unspecified organism 3 mg NEBULIZATION Once 04/06/2024 04/06/2024 En ded Active Problems Problem Noted Date Diagnosed Date Closed fracture of talus of right foot 4 PVC's (premature ventricular contractions) 02/12 Tear of medial meniscus of left knee 02/13/2024 Obstructive sleep apnea syndrome 01/02/2024 Left atrial dilation 12/01/2023 Breast cancer screening by mammogram 02/09/2023 Assessment & Plan (02/13/2024 11:47 AM EST): Pt is due, ordering Mammography for further evaluation. Assessment & Plan (02/09/2023 11:37 AM EST): Missing mammography, due to currently having insurance issues. Unable to provide one at this moments, until clarification of insurance is resolved. Atrial fibrillation 11/29/2022 Assessment & Plan (02/09/2023 2:55 PM EST): Unclear if she needs BB for rate control. Cont eliquraza. Has f.up with cards. Assessment & Plan (11/29/2022 5:40 PM EDT): Dx by anesthesia prior to surgery. Was started on anticoag. Hold of BB given low HR. Since new onset may consider cardioversion, at this moment referred to cardiology, she does have an appt coming up but referral place in case they request formal referral. Also will refer for echo. Pain and swelling of left knee 09/10/2022 Assessment & Plan (09/10/2022 11:28 AM EDT): Patient with recurrent L knee pain and associated swelling. Will send for xray of knee and MRI of L lower extremity joint. Will also benefit from referral to Ortho, referal placed. Pain in left lower leg 04/23/2022 Vitamin D deficiency 03/15/2022 Menopausal vasomotor syndrome 03/15/2022 Overview (03/15/2022): doing well with Effexor Hypertension 03/15/2022 Assessment & Plan (02/09/2023 2:54 PM EST): Patient underwent stressful situation, reports home Bps are better will scheduled for f./up. Target < 140./90 mmHg -Labs: CBC, Comp. Metabolic Panel, TSH/FT4, Lipid Panel. Assessment & Plan (09/10/2022 11:28 AM EDT): Controlled. Will send labs. Hereditary hemochromatosis 03/15/2022 Celiac disease 03/15/2022 Benign paroxysmal positional vertigo 03/15/2022 Asthma 03/15/2022 Overview (03/15/2022): mild intermit Obesity 03/15/2022 Assessment & Plan (02/13/2024 11:32 AM EST): - Patient has CAD, atrial fibrillation & MARY Discussed calorie deficit, recommended reduction of 20-30% of maintenance calories; make up worker referral offered. Recommended to decrease soda and sugary beverage consumption. Recommended at least 20 g per meal of protein to assist with satiety. Recommended at least 150 min/week of moderate intensity exercise. Hot flashes 03/15/2022 Overview (03/15/2022): Effexor helping Anxiety 03/15/2022 Assessment & Plan (02/09/2023 1:28 PM EST): PROGRESS NOTE: ID: Edith is a 67 y.o. White straight-identified cis-female (pronouns she/her/hers) with previous documented hx of Anxiety who presents for Anxiety. 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 She has two sibling passing last year and although she has been working on her grief and feels is doing well now mother is sick and she fears her mom passing. During IBH Consult Edith presenting with excessive worry/anxiety, difficulty controlling worry, irritability,lack of motivation, fatigue, overwhelm and fearfulness of sick mother passing; symptom has been present for the past year and exacerbated when she became her mother main caregiver. Symptoms are present in the context of been her mother's main caregiver, lack of support, working battery starter and new diagnosis of atrial fibrillation. PLAN: (check all that apply) New/Additional Services needed: Off-site services for Behavioral Health Integration Plan: External OP therapy referral Patient Self Plan: Patient to utilize skills provided in intervention , [facility], and Comply with medication prescribed by PCP. 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 Calculus of kidney 04/01/2008 Overview (03/15/2022): Saw Dr Fontenot for another stone - felt to be calcium OxalateSaw Dr Regan on CT in ER Encounters Date Type Department Care Team Description 04/06/2024 10:40 AM EST Office Visit [facility] [address] [place] [address] Virgie Marcus MD Acute bronchitis, unspecified organism 04/06/2024 Travel 04/06/2024 Telephone [facility] [address] [place] [phone] Marla Chun MD Nurse Triage 03/16/2024 Telephone [facility] [address] [place] [address] Marla Chun MD Prior Authorization 03/13/2024 10:00 AM EST Nutrition [facility]NUTRITION [address] [place] [id number] Class 1 obesity due to excess calories without serious comorbidity with body mass index (BMI) of 33.0 to 33.9 in adult (Primary Dx) 03/12/2024 3:45 PM EST Office Visit [facility] [address] [place] [address] Azar Jorgensen MD Obesity (BMI 30-39.9) (Primary Dx); Primary hypertension; Atrial fibrillation, unspecified type ([facility]) 03/12/2024 Travel 03/06/2024 Refill [facility] [address] [place] [address] Marla Chun MD Primary hypertension 02/27/[address] [address] Marla Chun MD Medication Question 02/16/[address] [address] Marla Chun MD nutrition appt request 02/13/2024 11:00 AM EST Office Visit [facility] [address] [place] [address] Marla Chun MD Class 1 obesity with body mass index (BMI) of 33.0 to 33.9 in adult, unspecified obesity type, unspecified whether serious comorbidity present (Primary Dx); Encounter for immunization; Breast cancer screening by mammogram 02/13/2024 Travel 02/11/2024 Refill [facility] [address] [place] [address] Marla Chun MD Vitamin D deficiency; Chronic migraine without aura without status migrainosus, not intractable 02/06/2024 Refill [facility] [address] [place] [address] Marla Chun MD from Last 3 Months Immunizations Name Administration Dates Next Due Td (adult), unspecified 02/15/2000 Tdap 02/13/2024,01/19/2012 Family History Medical History Relation Name Comments bladder cancer Brother Atrial fibrillation Mother Heart failure Mother Kidney cancer Sister Relation Name Status Comments Brother Mother Sister Social History Tobacco Use Types Packs/Day Years Used Date Smoking Tobacco: Never Smokeless Tobacco: Never Tobacco Cessation:Counseling Given: Not Answered Depression Answer Date Recorded Patient Health Questionnaire-9 Score 4 02/09/2023 Patient Health Questionnaire-9 Score 4 02/09/2023 Last PHQ-9: Questionnaire Data Not on file 1 04/12/2022 Housing Stability Answer Date Recorded What is your housing situation today? I have izaiah garcía 11/29/[address] you li ve. Do you have problems with any of the following? None of the above 11/29/2022 Food Insecurity Answer Date Recorded Within the past 12 months, y ou worried that your food would run out before you got money to buy more: Never True 11/29/2022 Within the past 12 months,th e food you bought just didn't last and you didn't have enough money to get more: Never True Transportation Answer Date Recorded In the past 12 months, has l ack of transportation kept you from medical appts, meetings, work or from getting things needed for daily living? No 11/29/2022 Utilities Answer Date Recorded In the past 12 months, has t he electric, gas, oil or water company threatened to shut off services in your home? No 11/29/2022 Depression Answer Date Recorded Patient Health Questionnaire-2 Score 2 02/09/2023 Comments Unknown Sex and Gender Information Value Date Recorded Sex Assigned at Female 12/14/2021 10:40 AM EDT Legal Sex Female 10:40 AM EDT Gender Identity Female 12/14/2021 10:40 AM EDT Sexual Orientation Straight 12/14/2021 10 :40 AM EDT Last Filed Vital Signs Vital Sign Reading Time Taken Comments Blood Pressure 123/76 04/06/2024 10:05 AM EST Pulse 74 04/06/2024 10:05 AM EST Temperature 36.5 ??C (97.7 ??F) 04/06/2024 1 0:05 AM EST Respiratory Rate 20 04/06/2024 10:0 5 AM EST Oxygen Saturation 98% 04/06/2024 10: 05 AM EST Inhaled Oxygen Concentration - - Weight 79.3 kg (174 lb 12.8 oz) 03/15/2024 1:36 PM EST Height 152.4 cm (5') 03/15/2024 1:36 PM EST Body Mass Index 34.14 03/15/2024 1:36 PM EST Plan of Treatment Health Maintenance Due Date Last Done Comments CT Colonography 1956 Colonoscopy 1956 FIT 1956 FOBT 1956 Sigmoidoscopy 1956 Mammogram 1996 SDOH Screening 10/01/2023 09/30/2022 Depression Screening 02/10/2024 02/09/2023, 02/09/2023 Influenza Vaccine (#1) 2024 Postp oned from 10/16/2023 (Patient Refused) Alcohol/Substance Use Screening 02/12/2025 02/13/2024 COVID-19 Vaccine (1 - 2023-2 5 season) 2025 Postponed from 10/15 (Patient Refused) Pneumococcal Vaccine: 50+ Years (1 of 2 - PCV) 02/12/2025 Postponed from 09/15 (Patient Refused) RSV Patients and Patients Aged 60 years or older (1 - Risk 60-74 years 1-dose series) 02/12/2025 Postponed from 10/10 (Patient Refused) Zoster Vaccines (1 of 2) 02/12/2025 Pos tponed from 2006 (Patient Refused) Tobacco Screening 04/06/2025 04/06/2024 Colorectal Cancer Screening 10/22/2025 FIT DNA/Cologuard 10/22/2025 10/22/2022 Lipid Panel 02/26/2028 02/25/2023, 09/10/2022, 08/07/2021 DTaP/Tdap/Td Vaccines (3 - T d or Tdap) 02/12/2034 02/13/2024, 01/19/2012, 02/15/2000 Hepatitis C Screening Completed 02/25/2023 HIB Vaccines Aged Out No longer eligi ble based on patient's age to complete this topic HPV Vaccines Aged Out No longer eligi ble based on patient's age to complete this topic Hepatitis A Vaccines Aged Out No long er eligible based on patient's age to complete this topic Hepatitis B Vaccines Aged Out No long er eligible based on patient's age to complete this topic IPV Vaccines Aged Out No longer eligi ble based on patient's age to complete this topic Meningococcal Vaccine Aged Out No casey emmy eligible based on patient's age to complete this topic RSV under 20 months Aged Out No longe r eligible based on patient's age to complete this topic Rotavirus Vaccines Aged Out No longer eligible based on patient's age to complete this topic Procedures Procedure Name Priority Date/Time Associated Diagnosis Comments POCT RAPID COVID ANTIGEN Routine 04/06/2024 10:41 AM EST Acute bronchitis, unspecified organism POCT INFLUENZA B Routine 04/06/2024 10:4 0 AM EST Acute bronchitis, unspecified organism POCT INFLUENZA A Routine 04/06/2024 10:3 8 AM EST Acute bronchitis, unspecified organism HEPATITIS C AB W/REFL TO HCV RNA, QN, PCR Routine 02/25/2023 3:53 PM EST Encounter for health-related screening LIPID PANEL, STANDARD Routine 02/25/2023 3:53 PM EST Hypertension, unspecified type LAB COLOGUARD?? COLON CANCER SCREEN Routine 10/22/2022 10:04 AM EDT Colon cancer screening from Last 3 Months or Most Recently Relevant to Health Maintenance Results * POCT Rapid Covid-19 BinaxNOW (04/06/2024 10:41 AM EST) Pathologist [facility] Rapid COVID Ag Negative QC Media Lot # [id number] Lot# Expiration Date 7,026 Swab 04/06/2024 10:4 1 AM EST Virgie Marcus MD POINT OF CARE TEST ENTER/EDIT OR DERABLES Final Result * POCT Rapid Influenza B OSOM (04/06/2024 10:40 AM EST) [facility] Rapid Influenza B Ag Negative Negative, Indeterminate QC Media Lot # [id number] Lot# Expiration Date Swab 04/06/2024 10:[address] [facility] Virgie Marcus MD POINT OF CARE TEST ENTER/EDIT OR DERABLES Final Result * POCT Rapid Influenza A OSOM (04/06/2024 10:38 AM EST) [facility] Rapid Influenza A Ag Negative Negative, Indeterminate QC Media Lot # [id number] Lot# Expiration Date Swab Nasopharyngeal structure / Unknown 04/06/2024 10:[address] [facility] iVrgie Marcus MD POINT OF CARE TEST ENTER/EDIT OR DERABLES Final Result * Hepatitis C Antibody with Reflex to HCV, RNA, Quantitative, Real-Time PCR (02/25/2023 3:53 PM EST) [facility] Hepatitis C Antibody Nonreactive Nonreactive [facility] Comment:Antibodies to HCV no t detected; does not exclude early acuteHCV infection. Blood Venous blood specimen / Unknown 02/25/2023 3:53 PM EST 02/25/2023 5:33 PM EST us Marla Chun MD LAB BLOOD ORDERABLES Final Re sult [facility] [address] [place] [phone] * Lipid Panel, Standard (02/25/2023 3:53 PM EST) Triglycerides 143 <150 mg/dL [facility] Comment:Desirable Triglyceri de: less than 150 mg/dLBorderline High Triglyceride 150-199 mg/dLHigh Triglyceride: 200-499 mg/dLVery High Triglyceride: greater than or equal to 5OO mg/dL Cholesterol 158 <200 mg/dL [facility] Comment:Desirable Cholestero l: less than 200 mg/dLBorderline High Cholesterol: 200-239 mg/dLHigh Cholesterol: greater than 239 mg/dL LDL Cholesterol Calculated 86 <100 mg/dL [facility] Comment:Desirable LDL: less than 100 mg/dLNear Optimal/Above Optimal LDL: 110- 129 mg/dLBorderline High LDL: 130-159 mg/dLHigh LDL: 160-189 mg/dLVery High LDL: greater than or equal to 190 mg/dL HDL Cholesterol 44 >40 mg/dL [facility] Comment:Desirable HDL: great er than 40 mg/dL Note: This HDL assay may give artificially low results in patients with liver disease. Blood Venous blood specimen / Unknown 02/25/2023 3:53 PM EST 02/25/2023 5:33 PM EST us Marla Chun MD LAB BLOOD ORDERABLES Final Re sult [facility] [address] [place] [address] [phone] * Cologuard?? colon cancer screening (10/22/2022 10:04 AM EDT) Cologuard Result Negative Negative 10/30/19 4:35 AM EDT [facility] (CLIA #:[id number]) Comment: NEGATIVE TEST RESULT. A negative Cologuard result indicates a low likelihood that a colorectal cancer (CRC) or advanced adenoma (adenomatous polyps with more advanced pre-malignant features) ??is present. The chance that a person with a negative Cologuard test has a colorectal cancer is less than 1 in 1500 (negative predictive value >99.9%) or has an ??advanced adenoma is less than ??5.3% (negative predictive value 94.7%). These data are based on a prospective cross-sectional study of 10,000 individuals at average risk for colorectal cancer who were screened with both Cologuard and colonoscopy. (Patricia Whitlock al, N Engl J Med 2014;370(14):1286- 1297) The normal value (reference range) for this assay is negative. COLOGUARD RE-SCREENING RECOMMENDATION: Periodic colorectal cancer screening is an important part of preventive healthcare for asymptomatic individuals at average risk for colorectal cancer. ??Following a negative Cologuard result, the [place] [employer] and U.S. Multi-Society Task Force screening guidelines recommend a Cologuard re-screening interval of 3 years. References: [place] [employer] Guideline for Colorectal Cancer Screening: https://www.cancer.org/cancer/wbjfy-mcrxcs-xxzenl/dwnxxujby-idzzotwft-asslqjq/ac s-rec ommendations.html.; Jerod MALCOLM, Desean KEYS, Fe IrvinK, Colorectal Cancer Screening: Recommendations for Physicians and Patients from the U.S. Multi-Society Task Force on Colorectal Cancer Screening , Am J Gastroenterology 2017; 112:1442-5217. TEST DESCRIPTION: Composite algorithmic analysis of stool DNA-biomarkers with hemoglobin immunoassay. ?? Quantitative values of individual biomarkers are not reportable and are not associated with individual biomarker result reference ranges. Cologuard is intended for colorectal cancer screening of adults of either sex, 45 years or older, who are at average-risk for colorectal cancer (CRC). Cologuard has been approved for use by the U.S. FDA. The performance of Cologuard was established in a cross sectional study of average-risk adults aged 50-84. Cologuard performance in patients ages 45 to 49 years was estimated by sub-group analysis of near-age groups. Colonoscopies performed for a positive result may find as the most clinically significant lesion: colorectal cancer [4.0%], advanced adenoma (including sessile serrated polyps greater than or equal to 1cm diameter) [20%] or non- advanced adenoma [31%]; or no colorectal neoplasia [45%]. These estimates are derived from a prospective cross-sectional screening study of 10,000 individuals at average risk for colorectal cancer who were screened with both Cologuard and colonoscopy. (Patricia Wang et al, N Engl J Med 2014;370(14):0763-5446.) Cologuard may produce a false negative or false positive result (no colorectal cancer or precancerous polyp present at colonoscopy follow up). A negative Cologuard test result does not guarantee the absence of CRC or advanced adenoma (pre-cancer). The current Cologuard screening interval is every 3 years. ([place] [employer] and U.S. Multi-Society Task Force). Cologuard performance data in a 10,000 patient pivotal study using colonoscopy as the reference method can be accessed at the following location: www.[employer]/results. Additional description of the Cologuard test process, warnings and precautions can be found at www.[employer]OT[employer].com. Stool specimen (specimen) 10/22/2022 10:04 AM EDT 10/23/2022 6:52 PM EDT us Marla Chun MD LAB MOLECULAR DIAGNOSTICS ORD ERABLES Final Result [facility] (CLIA #:[id number]) [place] [address], from Last 3 Months or Most Recently Relevant to Health Maintenance Insurance [facility] MEDICARE ADVANTAGE HMO Care Teams Vp [employer] Relationship Specialty Start Date End Date Marla Chun MD [address] [place] [phone] PCP - General Family Medicine 10/16/21
--- OUTSIDE RECORDS SUMMARY | 2024-04-17 10:42 | XMS_ITS | Referral Summary ---
Author Organization [facility] Address [address] [place] [address] Care Team Providers Care Legal Referee Name Role Phone Marla Chun Primary Care Provider [phone] Encounters Date Type Department Care Team Description 04/03/[address] Cardiology Medicine [address] [place] [phone] Hot Mill Operator: Khushboo Lucio RN 03/19/[address] Cardiology Medicine [address] [place] [address] Hot Mill Operator: Deneen Gilmore NP 03/19/2024 Telephone [facility] Cardiac Surgery [address] [place] [address] Hot Mill Operator: Jill Hernandez NP 01/27/2024 11:00 AM EST Follow-Up [address] Cardiology Medicine [address] [place] [address] Hot Mill Operator: Jill Topete NP Paroxysmal atrial fibrillation (HCC) (Primary Dx) from Last 3 Months Allergies Active Allergy Reactions Criticality Noted Date Comments Penicillins Rash,Unknown 08/02/2017 Other reaction(s): Rash/Dermatitis Pt states she can take amoxicillin without rash Medications albuterol (PROAIR HFA,VENTOLIN HFA) 90 mcg inhaler SMARTSI Puff(s) By Mouth Every 4-6 Hours PRN Active Eliquis 5 mg tablet Take 5 mg by mouth 2 times daily. 4 Active cetirizine (ZyrTEC) 10 mg tablet Take 10 mg by mouth daily. Active cholecalciferol (VITAMIN D3) 2,000 unit capsule Vitamin D3 2000 UNIT Oral Capsule TAKE ONE CAPSULE BY MOUTH EVERY DAY Quantity: 30; Refills: 2 NAY RAWLS PA-C; Started 03-Oct-2013 Active 4 Active venlafaxine XR (EFFEXOR XR) 37.5 mg capsule SMARTSI Capsule(s) By Mouth Daily Active metoprolol succinate XL (TOPROL XL) 25 mg tablet Take 25 mg by mouth once a day. Active multivitamin (THERAGRAN) tablet Take 1 tablet by mouth once a day. Active aspirin chewable tablet 81 mg Chew and swallow 81 mg by mouth once a day. Active amoxicillin (AMOXIL) 500 mg capsule Take 4 caps (2000 mg) 1 hour prior to procedure. 4 capsule 2 Active spironolactone (ALDACTONE) 25 mg tablet Take 1 tablet (25 mg total) by mouth once a day. 30 tablet 11 12/28/19 25 Active Active Problems Problem Noted Date Diagnosed Date MARY (obstructive sleep apnea) 01/02/2024 Assessment & Plan (01/02/2024 12:23 PM EST): Continue home CPAP Mild intermittent asthma without complication Assessment & Plan (01/02/2024 3:10 PM EST): Continue home PRN albuterol, no shortness of breath at this time Left atrial dilation 01/02/2024 Assessment & Plan (01/02/2024 4:19 PM EST): Noted to have mildly dilated left atrium on echo. Found to have elevated LA pressure of 17 mmHg on Watchman implantation. Given findings concerning for HFpEF, plan to switch amlodipine to spironolactone. -Start spironolactone 25 mg daily -Stop amlodipine -Outpatient Pro-BNP and BMP in 2-4 weeks Paroxysmal atrial fibrillation 12/01/2023 Assessment & Plan (01/02/2024 3:09 PM EST): Patient is a 68 year old female with PMHx of mildly symptomatic paroxysmal atrial fibrillation (diagnosed 10/2022). [id number] Score of 3-4 (HTN, age, female, ?HFpEF) on eliquis 5 mg BID and metoprolol succinate 25 mg daily. Patient is s/p successful deployment of a 31mm Watchman FLX Pro left atrial appendage occlusion device. Right groin is used for access site and is closed with 2 percloses. Right groin is without oozing or hematoma. EKG following the procedure shows sinus bradycardia with 1st degree AVB. Patient denies chest pain or shortness of breath. Continue with aspirin 81mg PO daily and apixaban 5mg twice daily for 3 months per champion-AF protocol followed by aspirin 81mg daily thereafter. -Follow up per watchman team. Plan for a SELVIN at 4 months post implant. -Endocarditis prophylaxis with amoxicillin PRN (Allergy to amoxicillin, but has tolerated amoxicillin in the past) Assessment & Plan (12/01/2023 12:28 PM EDT): Edith has mildly symptomatic paroxysmal atrial fibrillation. Symptoms are mild dyspnea on exertion. Risk factors include likely elevated left atrial pressure, moderate sleep apnea, and obesity. We discussed all these things today, and referred to advanced therapeutics for consideration of pharmacologic weight loss assistance. For rate control, she takes metoprolol succinate 25 mg a day. Regarding rhythm control, we discussed 3 major modalities including modifiable risk factors, antiarrhythmic drugs, and ablation. We discussed the concept of catheter-based ablation. Given that she is going to be focusing on weight loss and her A-fib burden being on the low side, she hopes to go ahead with watchman for the time being and then focus on A-fib burden in the future if it progresses or does not improve with her efforts at risk factors. Regarding anticoagulation, [id number] score is 3-4 (age, hypertension, gender, likely HFpEF). Her has bled score is 3 as documented above. She was referred specifically to discuss watchman implantation. Today I let her hold her device, gave her a pamphlet, and we used a video to go over the mechanism of cardioembolic stroke from the left atrial appendage. I used a video to go over technique, risk, benefit and expectations of left atrial appendage closure with the Watchman device. We went over the post-implant antithrombotic regimen, along with follow-up SELVIN and chances of device related thrombus and peridevice leak. After going over this together with shared decision making, she would like to proceed. With that we came up with the following plan: Case request entered for left atrial appendage closure. She knows to continue Eliquis 5 mg twice daily including the day of implant. Plan to start aspirin the day of implant, and use Freeborn-AF protocol with aspirin/Eliquis for 3 months and SELVIN at 4 months Repeat transthoracic echo Repeat blood work to include proBNP and hemoglobin A1c CT scan ordered for left atrial Penders anatomy and watchman implant planning Referred to advanced therapeutics for pharmacologic weight loss assistance consideration. Consider rhythm control strategies in the future pending her clinical course and efforts at weight loss Left atrial dilation 12/01/2023 Assessment & Plan (12/01/2023 12:24 PM EDT): She does endorse occasional shortness of breath on exertion. BNP was mildly elevated and has significantly dilated left atrium. We discussed that I do not have these images. Will recheck proBNP, repeat transthoracic echo, and at time of watchman plantation directly check left atrial pressure to help guide her management going forward Bleeding 12/01/2023 Assessment & Plan (12/01/2023 12:28 PM EDT): She has had multiple episodes of major/significant bleeding as she is exposed to trauma on a daily basis. Hot flashes, menopausal 09/12/2014 Assessment & Plan (12/01/2023 12:29 PM EDT): Uses venlafaxine for hot flashes, not for mood issues Essential hypertension 05/06/2014 Assessment & Plan (01/02/2024 4:12 PM EST): Well controlled at this time on home medications of amlodipine 5 mg daily and metoprolol succinate 25 mg daily. Given concern for HFpEF in the setting of elevated LA pressure of 17 mmHg, will switch home amlodipine 5 mg daily to spironolactone 25 mg daily with plan for outpatient labs in 2-4 weeks. -Continue metoprolol succinate 25 mg daily -Start spironolactone 25 mg daily -Stop amlodipine -Outpatient Pro-BNP and BMP in 2-4 weeks Assessment & Plan (12/01/2023 12:28 PM EDT): Blood pressures have been uncontrolled. Blood pressure is just above 160 mmHg today. Given likely HFpEF, may consider diuretic type antihypertensive such as spironolactone or possibly SGLT2 inhibitor Celiac disease 12/24/2013 Familial hemochromatosis 08/27/2013 Assessment & Plan (12/01/2023 12:28 PM EDT): She has a family history of this, however she is unaffected GERD (gastroesophageal reflux disease) 4 Asthma 07/17/2012 Assessment & Plan (12/01/2023 12:29 PM EDT): Asthma is mild and only uses albuterol couple times a year. Primarily related to allergies Vitamin d deficiency 07/17/2012 Immunizations Immunization Administration Dates Next Due Tetanus Toxoid, Reduced Diph theria Toxoid, and Acellular Pertussis Vaccine, Adsorbed 01/19/2012 Social History Tobacco Use Types Packs/Day Years Used Date Smoking Tobacco: Never Smokeless Tobacco: Never Tobacco Cessation:Counseling Given: Not Answered Comments:: Alcohol Use Standard Drinks/Week Comments Not Currently 0 (1 standard drink = 0.6 oz pur e alcohol) [facility] Utilities Answer Date Recorded In the past 12 months has th e [employer], [employer], [employer], or water [employer] threatened to shut off services in your [...] Orientation Straight 12/26/2023 12 :49 PM EST Last Filed Vital Signs Vital Sign Reading Time Taken Comments Blood Pressure 144/79 01/27/2024 10:57 AM EST Pulse 60 01/27/2024 10:57 AM EST Temperature 36.5 ??C (97.7 ??F) 01/02/2024 1:57 PM ES T Respiratory Rate 17 01/27/2024 10:57 AM EST Oxygen Saturation 96% 01/27/2024 10:57 AM EST Inhaled Oxygen Concentration - - Weight 79 kg (174 lb 2.6 oz) 01/27/2024 10:57 AM EST Height 152.4 cm (5') 01/27/2024 10:57 AM EST Body Mass Index 34.01 01/27/2024 10:57 AM EST Plan of Treatment Upcoming Encounters Date Type Department Care Team (Late st Contact Info) Description 05/01/2024 Hospital Encounter [facility] Heart and Vascular Interventional Lab [address] [place] [address] Madeline Fire Lookout, [address] [place], [place] [id number] 07/24/2024 8:00 AM EDT Telehealth [facility] Building 4th floor Cardiology Medicine [address] [place] [address] Hot Mill Operator: Jill Topete NP [address] [place] [address] Scheduled Procedures Name Priority Associated Diagnoses Date/Ti me SELVIN CASE Paroxysmal atrial fibrillation (HCC) Medical Devices Implanted Type Area Warp Preparer Device Identifier Shelf Expiration Date Model / Serial / Lot System Closure And Repair Suture-Mediate d Perclose Prostyle - [id number] Implanted:Qty: 1 on 01/02/2024 by Jensen Vyas MD at [facility] Implant Right: [employer] [id number] 10/14/2025 [id number] / / [id number] System Closure And Repair Suture-Mediate d Perclose Prostyle - [id number] Implanted:Qty: 1 on 01/02/2024 by Jensen Vyas MD at [facility] Implant Right: [employer] [id number] 10/14/2025 [id number] / [id number] Device Closure Olga 31mm Watchman Flx Pro - S0 - [id number] Implanted:Qty: 1 on 01/02/2024 by Jensen Vyas MD at [facility] Implant Left: Left Atrium [employer] [id number] 10/30/2026 [id number] Procedures * Due to [place] ALICE App law, this organization might not be sharing negative HIV tests. Procedure Name Priority Date/Time Associated Diagnosis Comments BASIC METABOLIC PANEL Routine 01/27/2024 11:29 AM EST Paroxysmal atrial fibrillation (HCC) ECG 12-LEAD Routine 01/27/2024 10:55 AM EST Paroxysmal atrial fibrillation (HCC) COLONOSCOPY Routine 12/04/2013 8:31 AM EDT MAMMOGRAPHY Routine 02/21/2012 12:00 AM EST from Last 3 Months or Most Recently Relevant to Health Maintenance Results * Due to [place] ALICE App law, this organization might not be sharing negative HIV tests. * (ABNORMAL) Basic metabolic panel (01/27/2024 11:29 AM EST) NA 140 135 - 145 mmol/L 01/27/2024 12:25 PM EST [facility] K 4.9 3.5 - 5.3 mmol/L 01/27/2024 12:25 PM EST [facility] Cl 101 98 - 107 mmol/L 01/27/2024 12:25 PM EST [facility] CO2 28 22 - 32 mmol/L 01/27/2024 12:25 PM EST [facility] BUN 18 7 - 23 mg/dL 01/27/2024 12:25 PM EST [facility] Creatinine 0.87 0.50 - 1.20 mg/dL 01/27/2024 12:25 PM EST [facility] Glucose 116(H) 65 - 99 mg/dL 01/27/2024 12:25 PM EST [facility] Calcium 10.0 8.6 - 10.5 mg/dL 01/27/2024 12:25 PM EST [facility] Anion Gap 11 5 - 15 01/27/2024 12:25 PM EST [facility] eGFR 73 >=60 mL/min/1. 73m2 01/27/2024 12:25 PM EST [facility] Comment:The estimated glomer ular filtration rate (eGFR) is calculated using a new formula developed by the NKF-ASN task force to eliminate race-based correction factors. The new formula uses serum/plasma creatinine, age, and gender to determine eGFR. A value below 60mls/min might indicate kidney disease and will be flagged. For additional information, see Anita et al, Am J Kidney Dis. 2021;79(2):268- 288, A Unifying Approach for GFR estimation: Recommendations of the NKF-ASN Task Force on Reassessing the Inclusion of Race in Diagnosing Kidney Disease . Blood Structure of peripheral vein / Unknown Venipuncture / Unknown 01/27/2024 11:29 AM EST 01/27/2024 11:52 AM EST us Jill Chung NP LAB BLOOD ORDERABLES Final Re sult [facility] [address] [place] [address], [place] * ECG 12 lead (01/27/2024 10:55 AM EST) Ventricular Rate EKG 60 BPM MUSE EKG Atrial Rate 60 BPM MUSE EKG OR Interval 222 ms MUSE EKG QRS Interval 84 ms MUSE EKG QT Interval 382 ms MUSE EKG QTC Interval 382 ms MUSE EKG P [place] 22 degrees MUSE EKG R [place] 35 degrees MUSE EKG T Wave [place] 31 degrees MUSE EKG 01/27/2024 10:5 5 AM EST 01/27/2024 5:21 PM EST Impressions MUSE EKG - 01/27/2024 5:21 PM EST SINUS RHYTHM WITH 1ST DEGREE A-V BLOCK POOR ' r ' WAVE PROGRESSION Confirmed by Renaldo Desai ([id number]) on 01/27/2024 5:21:21 PM Jill Chung RETAIL BUYER ECG ORDERABLES Final Result MUSE EKG * COLONOSCOPY (12/04/2013 8:31 AM EDT) Colonoscopy No Polyps [facility] 12/04/2013 8:31 AM EDT Toni Toribio MD HEALTH MAINTENANCE Final Re sult Performing Organization Address City/[facility]/ZIP Co de Phone Number [facility] * MAMMOGRAPHY (02/21/2012 12:00 AM EST) Mammogram NEGATIVE [facility] Anatomical Region Laterality Modality Other 02/21/2012 us Historical Conversion Provider HEALTH MAINTENANC E Final Result from Last 3 Months or Most Recently Relevant to Health Maintenance Insurance [facility] Advance Directives Documents on File Type Date Recorded Patient Sales Applications Engineer Expl anation Health Care Proxy 12/27/2023 9:37 AM * Full Code (Latest Code Status on File) Date Activated Date Inactivated Comments 01/02/2024 1:55 PM 01/02/2024 8:29 PM * Full Code Date Activated Date Inactivated Comments 01/02/2024 11:35 AM 01/02/2024 1:55 PM Healthcare Agents on File Name Relationship Healthcare Agent Relationshi p Communication David Solis Spouse Health Care Agent Care Teams Legal Referee Relationship Specialty Start Date End Date Marla Chun [address] [place] [address] PCP - General 11/09/23
--- OUTSIDE RECORDS SUMMARY | 2024-04-17 10:42 | XMS_ITS | Encounter Summary ---
Author Organization [employer] Address [address] [facility] 7t [place] [address] Care Team Providers Care Biofuels Plant Operations Engineer Name Role Phone Marla Chun MD Primary Care Provider [phone] Encounter Details Date Type Department Care Team (Latest Contact Info) Description 04/06/2024 Travel Social History Tobacco Use Types Packs/Day Years Used Date Smoking Tobacco: Never Smokeless Tobacco: Never Depression Answer Date Recorded Patient Health Questionnaire-9 [...] Orientation Straight 12/14/2021 10 :40 AM EDT documented as of this encounter Plan of Treatment Not on file documented as of this encounter Visit Diagnoses Not on filedocumented in this encounter Additional Health Concerns Assessment Noted Time PHQ-9 Depression Total Score: 4 02/10/20 23 11:02 AM EST documented as of this encounter Care Teams Biofuels Plant Operations Engineer Relationship Specialty Start Date End Date Marla Chun MD [address] [place] [address] PCP - General Family Medicine 10/16/21 documented as of this encounter
--- OUTSIDE RECORDS SUMMARY | 2024-04-17 10:42 | XMS_ITS | Encounter Summary ---
Author Organization [facility] Address [address] [place] [address] Care Team Providers Care Bag Bailer Name Role Phone Marla Chun Primary Care Provider [phone] Encounter Details Date Type Department Care Team (Late st Contact Info) Description 03/19/2024 Telephone [facility] Cardiac Surgery [address] [place] [address] Communications Scientist: Jill Hernandez NP [address] [place] [address] Social History Tobacco Use Types Packs/Day Years Used Date Smoking Tobacco: Never Smokeless Tobacco: Never Comments:: Alcohol Use Standard Drinks/Week Comments Not Currently 0 (1 standard drink = 0.6 oz pur e alcohol) [facility] Utilities Answer Date Recorded In the past [...] encounter Miscellaneous Notes * Telephone Encounter - Karen Flores - 03/20/2024 9:24 AM EST Thank You ! documented in this encounter Plan of Treatment Upcoming Encounters Date Type Department Care Team (Late st Contact Info) Description 05/01/2024 Hospital Encounter [facility] Heart and Vascular Interventional Lab [address] [place] [address] Madeline Family Development Specialist, [address] [place], [place] [phone] 07/24/2024 8:00 AM EDT Telehealth [facility] Building 4th floor Cardiology Medicine [address] [place] [address] Communications Scientist: Jill Topete NP [address] [place], [place] [phone] Scheduled Procedures Name Priority Associated Diagnoses Date/Ti me SELVIN CASE Paroxysmal atrial fibrillation (HCC) documented as of this encounter Visit Diagnoses Not on filedocumented in this encounter Care Teams Bag Bailer Relationship Specialty Start Date End Date Marla Chun [address] [place] [address] PCP - General 11/09/23 documented as of this encounter
--- OUTSIDE RECORDS SUMMARY | 2024-04-17 10:42 | XMS_ITS | Encounter Summary ---
Author Organization [employer] Address [address] [facility] 7 [place] [address] Care Team Providers Care Peace Officer Name Role Phone Marla Chun MD Primary Care Provider [phone] Reason for Visit * Reason Comments Med Refill Encounter Details Date Type Department Care Team ([facility] st Contact Info) Description 02/06/2024 Refill [facility] MED & PEDS [address] [place], [place] [phone] Marla Chun MD [address] [place] [address] Social History Tobacco Use Types Packs/Day Years [...] documented as of this encounter Care Teams Peace Officer Relationship Specialty Start Date End Date Marla Chun MD [address] [place] [phone] PCP - General Family Medicine 10/16/21 documented as of this encounter
--- OUTSIDE RECORDS SUMMARY | 2024-04-17 10:42 | XMS_ITS | Encounter Summary ---
Author Organization [employer] Address [address] [place] [address] Care Team Providers Care Web Developer Name Role Phone Marla Chun MD Primary Care Provider [phone] Reason for Visit * Reason Comments Med Refill Encounter Details Date Type Department Care Team ([facility] st Contact Info) Description 08/28/2022 Refill C [facility] MED [facility] PEDS [address] [place] [address] Javier Munoz MD [address] [place] [address] Chronic migraine without aura without status migrainosus, not intractable Social History Tobacco Use Types Packs/Day Years Used Date Smoking Tobacco: Never Assessed Comments Unknown Sex and Gender Information Value Date Recorded Sex Assigned at Female 12/14/2021 10:40 AM EDT Legal Sex Female 10:40 AM EDT Gender Identity Female 12/14/2021 10:40 AM EDT Sexual Orientation Straight 12/14/2021 10 :40 AM EDT documented as of this encounter Plan of Treatment Not on file documented as of this encounter Visit Diagnoses Diagnosis Chronic migraine without aura without status migrainosus, not intractable documented in this encounter Care Teams Web Developer Relationship Specialty Start Date End Date Marla Chun MD [address] [place] [address] PCP - General Family Medicine 10/16/21 documented as of this encounter
--- OUTSIDE RECORDS SUMMARY | 2024-04-17 10:42 | XMS_ITS | Clinical Summary ---
Author Organization [facility] Address [address] [place] [address] Care Team Providers Care Drill Press Tender Name Role Phone Marla Chun Primary Care Provider [phone] Allergies Active Allergy Reactions Criticality Noted Date [...] hour prior to procedure. 4 capsule 2 4 Active spironolactone (ALDACTONE) 25 mg tablet Take [...] mildly symptomatic paroxysmal atrial fibrillation (diagnosed 10/2022). [id number] Score of 3-4 (HTN, age, female, ?HFpEF) [...] her efforts at risk factors. Regarding anticoagulation, [id number] score is 3-4 (age, hypertension, gender, likely [...] aspirin the day of implant, and use [place]-AF protocol with aspirin/Eliquis for 3 months and [...] related to allergies Vitamin d deficiency 07/17/2012 Encounters Date Type Department Care Team Description 04/03/2024 Telephone [facility] 4th floor Cardiology Medicine [address] [place] [address] Real Estate Photographer: Khushboo Lucio RN 03/19/2024 Telephone [facility] 4th floor Cardiology Medicine [address] [place] [address] Real Estate Photographer: Deneen Gilmore NP 03/19/2024 Telephone [facility] Cardiac Surgery [address] [place] [address] Real Estate Photographer: Jill Hernandez NP 01/27/2024 11:00 AM EST Follow-Up [facility] 4th floor Cardiology Medicine [address] [place] [address] Real Estate Photographer: Jill Topete NP Paroxysmal atrial fibrillation (HCC) (Primary Dx) from Last 3 Months Immunizations Immunization Administration Dates Next Due Tetanus Toxoid, Reduced Diph theria Toxoid, and Acellular Pertussis Vaccine, Adsorbed 01/19/2012 Family History Medical History Relation Name Comments COPD Father Cancer Father Other Father Family History of lung cancer Heart disease Mother Other Mother Family History of cerebrovascular accident Stroke Mother Relation Name Status Comments Father Mother Alive Social History Tobacco Use Types Packs/Day Years Used Date Smoking Tobacco: Never Smokeless Tobacco: Never Tobacco Cessation:Counseling Given: Not Answered Comments:: Alcohol Use Standard Drinks/Week Comments Not Currently 0 (1 standard drink = 0.6 oz pur e alcohol) [facility] Utilities Answer Date Recorded In the past 12 months has e travayl, gas, oil, or water [employer] threatened to shut off services in your [...] st Contact Info) Description 05/01/2024 Hospital Encounter [facility] Heart and Vascular Interventional Lab [address] [place] [address] Madeline Blood Typer, [address] [place] [address] 07/24/2024 8:00 AM EDT Telehealth [facility] Building 4th floor Cardiology Medicine [address] [place] [address] Real Estate Photographer: Jill Topete NP [address] [place] [address] Scheduled Procedures Name Priority Associated Diagnoses Date/Ti me SELVIN CASE Paroxysmal atrial fibrillation (HCC) Health Maintenance Due Date Last Done Comments FOBT / Fit Test 1955 Sigmoidoscopy 1955 Pneumococcal Vaccine: 50+ Years (1 of 2 - PCV) 10/11/1975 Osteoporosis Screening 2006 Zoster Vaccines (1 of 2) 2006 Mammogram 02/20/2014 02/21/2012 RSV Vaccine (60+ years old a nd patients) (1 - Risk 60-74 years 1-dose series) 2016 DTaP,Tdap,and Td Vaccines (2 - Td or Tdap) 01/18/2022 01/19/2012, 02/15/2000 COVID-19 Vaccine ( - 2023-2 5 season) 2023 Influenza Vaccine (#1) 2023 Colonoscopy 12/05/2023 12/04/2013 Alcohol/Substance Use Screening 02/15/2024 Depression Screening and Follow-Up 02/15/2024 Health Care Proxy Review 02/15/2024 Social Drivers of Health Annual Screening 02/15/2024 Basic Metabolic Panel 01/26/2025 01/27/2024 , 12/27/2023, 12/01/2023 Cologuard 10/22/2025 10/22/2022, 10/22/2022 Colon Cancer Screening 10/22/2025 Hepatitis C Screening Completed 02/25/2023 Hepatitis B Vaccines Aged Out No long er eligible based on patient's age to complete this topic Medical Devices Implanted Type Area Process Controls Technician Device Identifier Shelf Expiration Date Model / Serial / Lot System Closure And Repair Suture-Mediate d Perclose Prostyle - [id number] Implanted:Qty: 1 on 01/02/2024 by Jensen Vyas MD at [facility] Implant Right: [employer] [id number] 10/14/2025 [id number] / / [id number] System Closure And Repair Suture-Mediate d Perclose Prostyle - [id number] Implanted:Qty: 1 on 01/02/2024 by Jensen Vyas MD at [facility] Implant Right: [employer] [id number] 10/14/2025 [id number] / / [id number] Device Closure Olga 31mm Watchman Flx Pro - S0 - [id number] Implanted:Qty: 1 on 01/02/2024 by Jensen Vyas MD at [facility] Implant Left: Left Atrium interspireSubmit [id number] 10/30/2026 [id number] Procedures * Due to [place] BATS law, this organization might not be sharing negative HIV tests. Procedure Name Priority Date/Time Associated Diagnosis Comments BASIC METABOLIC PANEL Routine 01/27/2024 11:29 AM EST Paroxysmal atrial fibrillation (HCC) ECG 12-LEAD Routine 01/27/2024 10:55 AM EST Paroxysmal atrial fibrillation (HCC) HM COLONOSCOPY Routine 12/04/2013 8:31 AM EDT HM MAMMOGRAPHY Routine 02/21/2012 12:00 AM EST from Last 3 Months or Most Recently Relevant to Health Maintenance Results * Due to [place] BATS law, this organization might not be sharing negative HIV tests. * (ABNORMAL) Basic metabolic panel (01/27/2024 11:29 AM EST) NA 140 135 - 145 mmol/L 01/27/2024 12:25 PM EST [facility] K 4.9 3.5 - 5.3 mmol/L 01/27/2024 12:25 PM EST [facility] Cl 101 98 - 107 mmol/L 01/27/2024 12:25 PM EST [facility] CO2 28 22 - 32 mmol/L 01/27/2024 12:25 PM EST [facility] BUN 18 7 - 23 mg/dL 01/27/2024 12:25 PM EST [facility] Creatinine 0.87 0.50 - 1.20 mg/dL 01/27/2024 12:25 PM EST [facility] Glucose 116(H) 65 - 99 mg/dL 01/27/2024 12:25 PM EST [facility] Calcium 10.0 8.6 - 10.5 mg/dL 01/27/2024 12:25 PM EST [facility] Anion Gap 11 5 - 15 01/27/2024 12:25 PM EST [facility] eGFR 73 >=60 mL/min/1. 73m2 01/27/2024 12:25 PM EST [facility] Comment:The estimated glomer ular [...] NP LAB BLOOD ORDERABLES Final Re sult [facility] [address] [place] [address], * ECG 12 lead (01/27/2024 10:55 AM EST) Ventricular Rate EKG 60 BPM MUSE EKG Atrial Rate 60 BPM MUSE EKG MI Interval 222 ms MUSE EKG QRS Interval 84 ms MUSE EKG QT Interval 382 ms MUSE EKG QTC Interval 382 ms MUSE EKG P Kinsey 22 degrees MUSE EKG R Kinsey 35 degrees MUSE EKG T Wave Kinsey 31 degrees MUSE EKG 01/27/2024 10:5 5 AM EST 01/27/2024 5:21 PM EST Impressions MUSE EKG - 01/27/2024 5:21 PM EST SINUS RHYTHM WITH 1ST DEGREE A-V BLOCK POOR ' r ' WAVE PROGRESSION Confirmed by Renaldo Desai ([id number]) on 01/27/2024 5:21:21 PM us Jill Chung NP ECG ORDERABLES Final Result MUSE EKG * COLONOSCOPY (12/04/2013 8:31 AM EDT) Colonoscopy No Polyps [facility] 12/04/2013 8:31 AM EDT us Toni Toribio MD HEALTH MAINTENANCE Final Re sult Performing Organization Address City/[facility]/ZIP Co de Phone Number [facility] * MAMMOGRAPHY (02/21/2012 12:00 AM EST) Mammogram NEGATIVE [facility] Anatomical Region Laterality Modality Other 02/21/2012 us Historical Conversion Provider HEALTH MAINTENANC E Final Result from Last 3 Months or Most Recently Relevant to Health Maintenance Insurance [facility] [place] [id number] MEDICARE Advance Directives Documents on File Type Date Recorded Patient Recycling Assistant Expl anation Health Care Proxy 12/27/2023 9:37 AM * Full Code (Latest Code Status on File) Date Activated Date Inactivated Comments 01/02/2024 1:55 PM 01/02/2024 8:29 PM * Full Code Date Activated Date Inactivated Comments 01/02/2024 11:35 AM 01/02/2024 1:55 PM Healthcare Agents on File Name Relationship Healthcare Agent Relationshi p Communication David Solis Spouse Health Care Agent Care Teams Drill Press Tender Relationship Specialty Start Date End Date Marla Chun [address] [place] [address] PCP - General 11/09/23
--- OUTSIDE RECORDS SUMMARY | 2024-04-17 10:42 | XMS_ITS | Encounter Summary ---
Author Organization [employer] Address [address] [place] [address] 7 [place] [address] Care Team Providers Care Veneer Sample Maker Name Role Phone Marla Chun MD Primary Care Provider Reason for Visit * Reason Onset Date Comments Nurse Triage 11/12/2022 Encounter Details Date Type Department Care Team ([facility] st Contact Info) Description 11/12/2022 Telephone [facility] CHC MED & PEDS [address] [place] [address] Marla Chun MD [address] [place] [address] Nurse Triage Social History Tobacco Use Types Packs/Day Years Used Date Smoking Tobacco: Never Smokeless Tobacco: Never Depression Answer Date Recorded Patient Health Questionnaire-9 Score 3 09/30/2022 Depression Answer Date Recorded Patient Health Questionnaire-2 Score 1 09/30/2022 Comments Unknown Sex and Gender Information Value Date Recorded Sex Assigned at Female 12/14/2021 10:40 AM EDT Legal Sex Female 10:40 AM EDT Gender Identity Female 12/14/2021 10:40 AM EDT Sexual Orientation Straight 12/14/2021 10 :40 AM EDT documented as of this encounter Miscellaneous Notes * Telephone Encounter - Emperatriz Guerra RN - 11/12/2022 9:39 AM EDT Called pt. Back after reviewing note with PCP and PCP advises to go to ED now. Pt. Will go to [facility] ED now. Her will drive her. * Telephone Encounter - Emperatriz Guerra RN - 11/12/2022 9:30 AM EDT Called pt. She sounds clear, alert and oriented and not Short of breath. Pt. States that she went to [facility] this am for surgery and they cancelled her surgery because her EKG shows that she is in A-fib.A doctor came into the surgery room and evaluated pt. And told her to go to her Dr today and get a referral to a Manufacturing Team Leader. I asked her why they did not send her to ED for more evaluation and she states that she is not in any distress, has no chest pain, no left arm pain, no jaw pain, no dizziness, pt. Is speaking in clear sentences and is not SOB. Pt. 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 I advised that she should have stayed at [facility] at went to the ED for further evaluation but pt. States they told her to make appt. With her PCP today for referral. I did put pt. In schedule fortoday at 240pm in [facility] but, I will send this note to PCP and see if she feels pt. Should go straight to ED right now even though asymptomatic except for abnormal EKG showing A-Fib. This am. Pt. Does not feel like her heart is beating fast. Please advise. Did advise pt. That if she feels any SOB, weakness, rapid heart rate prior to appt. To call [address] her to ED. Protocol Used: Heart Rate and Heartbeat Questions (Adult) Protocol-Based Disposition: Callback or Video Visit by PCP Today Positive Triage Question: * Heart rhythm alert (e.g., you have irregular heartbeat ) from personal wearable device (e.g., Apple Watch) * All higher-acuity triage questions were negative Care Advice Discussed: * Reasons To Call Back - Chest pain, lightheadedness, or difficulty breathing occurs - Heart beating more than 140 beats / minute - More than 3 extra or skipped beats / minute - You become worse * Telephone Encounter - Emperatriz Guerra RN - 11/12/2022 8:46 AM EDT Called pt. She sounds clear, alert and oriented and not Short of breath. Pt. States that she went to [facility] this am for surgery and they cancelled her surgery because her EKG shows that she is in A-fib.A doctor came into the surgery room and evaluated pt. And told her to go to her Dr today and get a referral to a Manufacturing Team Leader. I asked her why they did not send her to ED for more evaluation and she states that she is not in any distress, has no chest pain, no left arm pain, no jaw pain, no dizziness, pt. Is speaking in clear sentences and is not SOB. Pt. 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 I advised that she should have stayed at [facility] at went to the ED for further evaluation but pt. States they told her to make appt. With her PCP today for referral. I did put pt. In schedule fortoday at 240pm in [facility] but, I will send this note to PCP and see if she feels pt. Should go straight to ED right now even though asymptomatic except for abnormal EKG showing A-Fib. This am. Pt. Does not feel like her heart is beating fast. Please advise. Did advise pt. That if she feels any SOB, weakness, rapid heart rate prior to appt. To call [address] her to ED. Protocol Used: Heart Rate and Heartbeat Questions (Adult) Protocol-Based Disposition: Callback or Video Visit by PCP Today Positive Triage Question: * Heart rhythm alert (e.g., you have irregular heartbeat ) from personal wearable device (e.g., vitalclip Watch) * All higher-acuity triage questions were negative Care Advice Discussed: * Reasons To Call Back - Chest pain, lightheadedness, or difficulty breathing occurs - Heart beating more than 140 beats / minute - More than 3 extra or skipped beats / minute - You become worse * Telephone Encounter - Marisel Miller - 11/12/2022 8:36 AM EDT Symptom: Heartbeat Symptoms (Fast, Slow, or Irregular) Outcome: Schedule a same-day appointment or talk to a nurse or provider today Reason: I'm a little short of breath but I'm okay The caller accepted this outcome Patient stated they cancelled her knee surgery for today, stating her heart was Afib and advised tocontact PCP immediately and get a referral to a transport engineer. documented in this encounter Plan of Treatment Not on file documented as of this encounter Visit Diagnoses Not on filedocumented in this encounter Additional Health Concerns Assessment Noted Time PHQ-9 Depression Total Score: 3 10/01/19 23 1:36 PM EDT documented as of this encounter Care Teams Veneer Sample Maker Relationship Specialty Start Date End Date Marla Chun MD [address] [place] [address] PCP - General Family Medicine 10/16/21 documented as of this encounter
--- OUTSIDE RECORDS SUMMARY | 2024-04-17 10:42 | XMS_ITS | Encounter Summary ---
Author Organization [employer] Address [address] [facility] 7t [place] [address] Care Team Providers Care Social Media Designer Name Role Phone Marla Chun MD Primary Care Provider [phone] Reason for Visit * Reason Onset Date Comments Nurse Triage 12/06/2023 Encounter Details Date Type Department Care Team ([facility] st Contact Info) Description 12/06/2023 Telephone [facility] MEDICINE [address] [place] [address] Marla Chun MD [address] [place] [address] Nurse Triage Social History Tobacco Use Types [...] encounter Miscellaneous Notes * Telephone Encounter - Rogelio Anderson - 12/06/2023 10:55 AM EDT Symptom: Breast Symptoms Outcome: Schedule an appointment to be seen within 24 hours Reason: Caller denied all higher acuity questions The caller accepted this outcome. documented in this encounter Plan of Treatment Not on file documented as of this encounter Visit Diagnoses Not on filedocumented in this encounter Additional Health Concerns Assessment Noted Time PHQ-9 Depression Total Score: 4 02/10/20 23 11:02 AM EST documented as of this encounter Care Teams Social Media Designer Relationship Specialty Start Date End Date Marla Chun MD [address] [place] [address] PCP - General Family Medicine 10/16/21 documented as of this encounter
--- OUTSIDE RECORDS SUMMARY | 2024-04-17 10:42 | XMS_ITS | Encounter Summary ---
Author Organization [employer] Address [address] [facility] 7 [place] [address] Care Team Providers Care Shut Off Worker Name Role Phone Marla Chun MD Primary Care Provider [phone] Reason for Visit * Reason Onset Date Comments Nurse Triage 04/06/2024 Encounter Details Date Type Department Care Team ([facility] st Contact Info) Description 04/06/2024 Telephone [facility] MEDICINE [address] [place] [address] Marla Chun MD [address] [place] [address] Nurse Triage Social History Tobacco Use Types [...] encounter Miscellaneous Notes * Telephone Encounter - [place] River RN - 04/06/2024 9:09 AM EST Call returned to Edith Ferraro [facility] to triage below. Reports having cough and chest congestion x 1day. Reports having green sputum . Mild nasal congestion. Mild throat irritation. Mild CARTER. Denies any fever. No wheezing . No sick contacts. Pt was looking for Rx over telehealth . Pt advised would need to be seen for provider to do viral panel testing to rule out COVID-19, flu or RSV. Protocol Used: COVID-19 - Diagnosed or Suspected (Adult) Protocol-Based Disposition: Discuss with PCP and Callback by Nurse within 1 Hour Future Appointments Date Time Provider Department Center 04/06/2024 10:40 AM [facility] SAME DAY [facility] Insurance verified as active per Real Time Eligibility in [facility]. Video visit offer not recorded Positive Triage Question: * HIGH RISK patient (e.g., weak immune system, age > 64 years, obesity with BMI of 30 or higher,, chronic lung disease) and COVID symptoms (e.g., cough, fever) (Exceptions: Already seen by doctor or ORGANIC CHEMISTRY TEACHER/PA and no new or worsening symptoms.) * All higher-acuity triage questions were negative Care Advice Discussed: * Reassurance and Education - Suspected COVID-19 and Testing Needed * Humidifier * Coughing Spells * Pain and Fever Medicines * Reasons To Call Back - Fever over 103 F (39.4 C) - Chest pain or difficulty breathing occurs - Cough or other symptoms last more than 3 weeks - You become worse * Telephone Encounter - Lulu De La Cruz - 04/06/2024 8:38 AM EST Symptoms: Cough, Chest Congestion Outcome: Schedule an appointment to be seen within 24 hours Reason: Caller denied all higher acuity questions The caller accepted this outcome. [phone] documented in this encounter Plan of Treatment Not on file documented as of this encounter Visit Diagnoses Not on filedocumented in this encounter Additional Health Concerns Assessment Noted Time PHQ-9 Depression Total Score: 4 02/10/20 23 11:02 AM EST documented as of this encounter Care Teams Shut Off Worker Relationship Specialty Start Date End Date Marla Chun MD [address] [place] [phone] PCP - General Family Medicine 10/16/21 documented as of this encounter
--- OUTSIDE RECORDS SUMMARY | 2024-04-17 10:42 | XMS_ITS | Encounter Summary ---
Author Organization [facility] Address [address] [place] [address] Care Team Providers Care Museum Exhibit Designer Name Role Phone Marla Chun Primary Care Provider [phone] Encounter Details Date Type Department Care Team (Late st Contact Info) Description 04/03/2024 Telephone [facility] 4th floor Cardiology Medicine [address] [place] [address] Wool Washer Feeder: Khushboo Lucio RN Social History Tobacco Use Types Packs/Day Years Used Date Smoking Tobacco: Never Smokeless Tobacco: Never Comments:: Alcohol Use Standard Drinks/Week Comments Not Currently 0 (1 standard drink = 0.6 oz pur e alcohol) [facility] Utilities Answer Date Recorded In the past 12 months has th e electric, gas, oil, or water company [...] encounter Miscellaneous Notes * Telephone Encounter - Khushboo Humphreys RN - 04/03/2024 9:48 AM EST Called Edith with changes to medication administration. No answer, left voicemail detailing instructions to discontinue Eliquis and continue taking aspirin as directed 3 months status post Watchman. Patient informed of follow-up SELVIN scheduled on 05/01/24. Call back number [phone] provided documented in this encounter Plan of Treatment Upcoming Encounters Date Type Department Care Team (Late st Contact Info) Description 05/01/2024 Hospital Encounter [facility] Heart and Vascular Interventional Lab [address] [place] [address] Madeline Motor Builder Assembler, [address] [place] [address] 07/24/2024 8:00 AM EDT Telehealth [facility] Building 4th floor Cardiology Medicine [address] [place] [address] Wool Washer Feeder: Jill Topete NP [address] [place] [address] Scheduled Procedures Name Priority Associated Diagnoses Date/Ti me SELVIN CASE Paroxysmal atrial fibrillation (HCC) documented as of this encounter Visit Diagnoses Not on filedocumented in this encounter Care Teams Museum Exhibit Designer Relationship Specialty Start Date End Date Marla Chun [address] [place] [address] PCP - General 11/09/23 documented as of this encounter
--- OUTSIDE RECORDS SUMMARY | 2024-04-17 10:42 | XMS_ITS | Encounter Summary ---
Author Organization [employer] Address [address] [facility] 7 [place] [address] Care Team Providers Care Presser Machine Name Role Phone Marla Chun MD Primary Care Provider [phone] Reason for Visit * Reason Comments URI Encounter Details Date Type Department Care Team ([facility] Contact Info) Description 04/06/2024 10:40 AM EST Office Visit [facility] [address] [place], [place] [id number] Virgie Marcus MD [address] [place] [address] Acute bronchitis, unspecified organism Social History Tobacco Use Types Packs/Day Years [...] AM EDT documented as of this encounter Last Filed Vital Signs Vital Sign Reading Time Taken Comments Blood Pressure 123/76 04/06/2024 10:05 AM EST Pulse 74 04/06/2024 10:05 AM EST Temperature 36.5 ??C (97.7 ??F) 04/06/2024 10:[address] Respiratory Rate 20 04/06/2024 10:05 AM EST Oxygen Saturation 98% 04/06/2024 10:05 AM EST Inhaled Oxygen Concentration - - Weight - - Height - - Body Mass Index - - documented in this encounter Progress Notes * Virgie Marcus MD - 04/06/2024 10:40 AM EST Subjective Patient ID: Edith Solis is a 68 y.o. female who presents for URI. URI This is a new problem. The current episode started yesterday. The problem has been unchanged. The maximum temperature recorded prior to her arrival was 100.4 - 100.9 F. Pertinent negatives include noabdominal pain, chest pain, congestion, coughing, diarrhea, dysuria, ear pain, headaches, joint pain, joint swelling, nausea, neck pain, plugged ear sensation, rash, rhinorrhea, sinus pain, sneezing,sore throat, swollen glands, vomiting or wheezing. Review of Systems HENT: Negative for congestion, ear pain, rhinorrhea, sinus pain, sneezing and sore throat. Respiratory: Negative for cough and wheezing. Cardiovascular: Negative for chest pain. Gastrointestinal: Negative for abdominal pain, diarrhea, nausea and vomiting. Genitourinary: Negative for dysuria. Musculoskeletal: Negative for joint pain and neck pain. Skin: Negative for rash. Neurological: Negative for headaches. Objective Physical Exam Constitutional: Appearance: Normal appearance. Cardiovascular: Rate and Rhythm: Normal rate and regular rhythm. Pulses: Normal pulses. Heart sounds: Normal heart sounds. Pulmonary: Effort: Pulmonary effort is normal. Breath sounds: Decreased air movement present. Wheezing present. Neurological: Mental Status: She is alert. Assessment/Plan Diagnoses and all orders for this visit: Acute bronchitis, unspecified organism Comments: pt is neg for Covid and flu Advised steam inhaltion and warm water gargles.Supportive trt with Mucinex and warm tea Started On prednisone 40mg for 5days and Zpack Orders: - POCT Rapid Influenza A OSOM - POCT Rapid Influenza B OSOM - POCT Rapid Covid-19 BinaxNOW - ipratropium-albuterol (Duo-Neb) 0.5-2.5 mg/3 mL nebulizer solution 3 mg Other orders - predniSONE (Deltasone) 20 MG tablet; Take 2 tablets (40 mg) by mouth Once per day for 5 days. - azithromycin (Zithromax) 250 MG tablet; Take 2 tabs day and then 1 tab daily - Dextromethorphan-guaiFENesin (Mucinex DM) 30-600 MG tablet sustained-release 12 hour; Use 1 tab TID documented in this encounter Plan of Treatment Not on file documented as of this encounter Procedures Procedure Name Priority Date/Time Associated Diagnosis Comments POCT RAPID COVID ANTIGEN Routine 04/06/2024 10:41 AM EST Acute bronchitis, unspecified organism POCT INFLUENZA B Routine 04/06/2024 10:4 0 AM EST Acute bronchitis, unspecified organism POCT INFLUENZA A Routine 04/06/2024 10:3 8 AM EST Acute bronchitis, unspecified organism documented in this encounter Results * POCT Rapid Covid-19 BinaxNOW (04/06/2024 10:41 AM EST) [facility] Rapid COVID Ag Negative QC Media Lot # [id number] Lot# Expiration Date 7,026 Swab 04/06/2024 10:4 1 AM EST us Virgie Marcus MD POINT OF CARE TEST ENTER/EDIT OR DERABLES Final Result * POCT Rapid Influenza B OSOM (04/06/2024 10:40 AM EST) Rapid Influenza B Ag Negative Negative, Indeterminate QC Media Lot # [id number] Lot# Expiration Date Swab 04/06/2024 10:4 0 AM EST us Virgie Marcus MD POINT OF CARE TEST ENTER/EDIT OR DERABLES Final Result * POCT Rapid Influenza A OSOM (04/06/2024 10:38 AM EST) Rapid Influenza A Ag Negative Negative, Indeterminate QC Media Lot # [id number] Lot# Expiration Date , Swab Nasopharyngeal structure / Unknown 04/06/2024 10:38 AM EST Result Shivani Marcus MD POINT OF CARE TEST ENTER/EDIT OR DERABLES Final Result documented in this encounter Visit Diagnoses Diagnosis Acute bronchitis, unspecified organism documented in this encounter Administered Medications Inactive Administered Medications - up to 3 most recent administrations Medication Order MAR Action Action Date Dose Rate Site ipratropium-albuterol (Duo-Neb) 0.5-2.5 mg/3 mL nebulizer solution 3 mg 3 mg, Nebulization, Once, On Tue04/06/24 at 1015, For 1 doseIndications:Acute bronchitis, unspecified organism Given 04/06/2024 10:15 AM EST 3 mg documented in this encounter Additional Health Concerns Assessment Noted Time PHQ-9 Depression Total Score: 4 02/10/20 23 11:02 AM EST documented as of this encounter Care Teams Presser Machine Relationship Specialty Start Date End Date Marla Chun MD [address] [place] [phone] PCP - General Family Medicine 10/16/21 documented as of this encounter
--- OUTSIDE RECORDS SUMMARY | 2024-04-17 10:42 | XMS_ITS | Encounter Summary ---
Author Organization [facility] Address [address] [place] [address] Care Team Providers Care Speaker Wirer Name Role Phone Marla Chun Primary Care Provider [phone] Encounter Details Date Type Department Care Team (Late st Contact Info) Description 12/05/2023 Orders Only [facility] Interventional Radiology [address] [place] [phone] Ted Miles MD [address] [place] [phone] Social History Tobacco Use Types Packs/Day Years Used Date Smoking Tobacco: Never Comments:: Comments Unknown Sex and Gender Information Value Date Recorded Sex Assigned at Female 11/30/2023 3:14 PM EDT Legal Sex Female 3:08 AM EDT Gender Identity Female 11/09/2023 11:42 AM EDT Sexual Orientation Straight 12/26/2023 12 :49 PM EST documented as of this encounter Plan of Treatment Upcoming Encounters Date Type Department Care Team (Late st Contact Info) Description 05/01/2024 Hospital Encounter [facility] Heart and Vascular Interventional Lab [address] [place] [id number] Madeline [employer] Machine Operator, [address] [place] [phone] 07/24/2024 8:00 AM EDT Telehealth [facility] Building 4th floor Cardiology Medicine [address] [place] [address] Vocational Rehabilitation Supervisor: Jill Topete NP [address] [place] [address] [place] [address] Scheduled Procedures Name Priority Associated Diagnoses Date/Ti me SELVIN CASE Paroxysmal atrial fibrillation (HCC) documented as of this encounter Visit Diagnoses Not on filedocumented in this encounter Care Teams Speaker Wirer Relationship Specialty Start Date End Date Marla Chun [address] [place] [phone] PCP - General 11/09/23 documented as of this encounter
== END 2024-04-17 10:31 | disposition home or self-care (01) ==
PROVIDERS: PCP Family Medicine; Visit Provider Nurse Practitioner Family
DX: I48.0 Paroxysmal atrial fibrillation (principal); I49.3 Ventricular premature depolarization; I10 Essential (primary) hypertension; G47.33 Obstructive sleep apnea (adult) (pediatric); Z95.818 Presence of other cardiac implants and grafts
CPT/HCPCS: 93010; 99214; G2211

== ENCOUNTER → 2024-04-17 09:33 | Outpatient (BNVA) | payer MEDICARE, SELFPAY | PROVIDERS: PCP Family Medicine; Visit Provider Nurse Practitioner Family | DX: I48.0 Paroxysmal atrial fibrillation (principal); I49.3 Ventricular premature depolarization; I10 Essential (primary) hypertension; G47.33 Obstructive sleep apnea (adult) (pediatric); Z95.818 Presence of other cardiac implants and grafts | CPT/HCPCS: 93005; 99212 ==

== ENCOUNTER 2024-06-19 09:18 | Outpatient (AMB) | payer MEDICARE, SELFPAY ==
[2024-06-19 09:21] VITALS: BP 114/70; PULSE 62; BMI 32.6
--- NOTE | 2024-06-19 09:21 | MHC.OFFVIS ---
Vital Signs 06/19/24 09:21 Height 5 ft Weight 167 lb 1.766 oz BMI 32.6 BP 114/70 Blood Pressure Location Rt brachial Position Sitting Pulse 62 Pulse Source Monitor Intake Visit Reasons: 2 mth f/up w / ekg Document Management Analyst Required: No Allergies Penicillins Allergy (Unknown, Verified 06/19/24 09:22) Unknown Medication List - Last Reconciled 06/19/24 by Dede Arciniega NP-C albuterol sulfate 90 mcg/actuation inhalation cholecalciferol (vitamin D3) 50 mcg PO QAM dronedarone (Multaq) 400 mg PO BID fluticasone propionate 50 mcg/actuation sprays intranasal [Knee scooter As directed] metoprolol succinate ER 12.5 mg (1/2 x 25 mg) PO DAILY 90 days spironolactone (Aldactone) 25 mg PO DAILY venlafaxine ER 37.5 mg PO DAILY HPI HPI 2 mth f/up w / ekg: Details: Edith is a 68-year-old female with past medical history of asthma, hypertension, paroxysmal atrial fibrillation, status post Watchman device and moderately severe sleep apnea now on CPAP who now presents for follow-up. Today she reports that since her last visit in April she did undergo a transesophageal echocardiogram at [facility]. She tells me that the Watchman device is well healed and she was taken off anticoagulation. She has not had any known recurrent atrial fibrillation since starting Multaq. She has been compliant with her CPAP mask each night. No shortness of breath, presyncope, syncope, PND, orthopnea, edema. No chest discomfort at rest or with activities. 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 Review of Systems Const All systems reviewed & are unremarkable except as noted in HPI and below ENT Denies dizziness Card Denies chest pain, Denies chest pain at rest, Denies chest pain with activity, Denies rapid heart rate, Denies pedal edema, Denies edema, Denies leg edema, Denies lightheadedness, Denies palpitations, Denies dyspnea, Denies dyspnea on exertion and Denies orthopnea Resp Denies cough, Denies dyspnea and Denies dyspnea on exertion GI Denies hematochezia and Denies change in stool character Musc Denies abnormal gait, Denies limited range of motion, Denies muscle cramps, Denies muscle weakness, Denies numbness, Denies radiating pain into limb, Denies stiffness and Denies tingling Neuro Denies abnormal gait, Denies dizziness, Denies numbness and Denies tingling Endo Denies palpitations Physical Exam Vital Signs: Last Vital Signs Pulse 62 06/19/24 09:21 BP 114/70 06/19/24 09:21 BMI result Body Mass Index 32.6 Const General: cooperative, healthy appearing, comfortable and no acute distress Orientation/consciousness: patient oriented x3 Neck Neck: Yes normal visual inspection Resp Effort & Inspection: normal respiratory effort Auscultation: clear to auscultation bilaterally, no crackles, no rales, no rhonchi and no wheezes Cardio Rate: regular rate Rhythm: regular rhythm Heart sounds: S1 normal heart sound present, S2 normal heart sound present, no gallops, no murmurs and no rubs Neuro General: patient oriented x3 Extrem General: Yes normal to inspection, No no pedal edema and No calf tenderness Psych Appearance: grossly normal Mental Status: mental status grossly normal Speech and movement: Normal speech and movement present Office Procedures EKG Details: Today, read by me, sinus rhythm with 1st degree avb, septal Q wave - unchanged from prior, rate 62, Qtc 381ms [id number], Complete Assessment & Plan Assessment & Plan (1) A-fib: Comment: new dx 10/2022-now follows w/[facility]-taking eliquis/metoprolol for AFIB Code(s): I48.91 - Unspecified atrial fibrillation Category: Medical Qualifiers: Atrial fibrillation type: paroxysmal Qualified Code(s): I48.0 - Paroxysmal atrial fibrillation Plan: Finding of paroxysmal atrial fibrillation, asymptomatic, 11/12/2022 when she came for knee surgery. Chads Vasc score of 3. She was put on Eliquis for anticoagulation and metoprolol for rate control.. Holter monitor done 12/24/2022 for 4 days shows sinus rhythm with average heart rate 66, heart rate range 48 to 160, AFib 6.5% of time with heart rate up to 108, PVCs 7.5% of time. An echocardiogram done 12/28/2022 showed EF 60-65%, left atrium severely dilated. An exercise stress test done 12/24/2022 showed exercise 8 minutes 31 seconds, mild shortness of breath, no EKG changes of ischemia. A home sleep study done on 02/28/2023 showed moderately severe sleep apnea and she is now on CPAP. On last visit she had recurrent AFib and was started on Multaq for rhythm control. EKG done today shows a sinus rhythm with first-degree AV block, rate 62. She did undergo a Watchman device 01/02/2024 and is now off anticoagulation. At this time will have her continue Multaq, metoprolol. Will arrange for office EKG in 3 months. Cardiology follow-up 6 months, sooner if needed. (2) Presence of Watchman left atrial appendage closure device: Code(s): Z95.818 - Presence of other cardiac implants and grafts Category: Medical Plan: Watchman device placed 01/02/2024 at [facility]. 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 She reports undergoing a SELVIN in April 2024 and was told DOM appendage is sealed. I will request this report. She was taken off Eliquis. (3) PVC's (premature ventricular contractions): Code(s): I49.3 - Ventricular premature depolarization Category: Medical Plan: Frequent PVCs seen on 1st Holter as above. Asymptomatic. Echo with normal EF. On low-dose beta-norma and with CPAP repeat Holter shows only rare ectopy (4) HTN (hypertension): Code(s): I10 - Essential (primary) hypertension Category: Medical Qualifiers: Hypertension type: primary hypertension Qualified Code(s): I10 - Essential (primary) hypertension Plan: Well controlled at present. (5) Obstructive sleep apnea: Code(s): G47.33 - Obstructive sleep apnea (adult) (pediatric) Category: Medical Plan: Newer diagnosis of sleep apnea. Following with pulmonology. Plan Time spent on chart review, documentation, interview and assessment Coding Level of Care Code Est Pt Level 4 (10137) Complex EM visit Add On G2211 Diagnoses Paroxysmal atrial fibrillation I48.0 Atrial fibrillation type: paroxysmal Presence of Watchman left atrial appendage closure device Z95.818 PVC's (premature ventricular contractions) I49.3 Primary hypertension I10 Hypertension type: primary hypertension Obstructive sleep apnea G47.33 CPT Codes EKG - CPT: [id number], Complete ([id number]) Time Spent (min) 28
== END 2024-06-19 10:01 | disposition home or self-care (01) ==
PROVIDERS: PCP Family Medicine; Visit Provider Nurse Practitioner Family
DX: I48.0 Paroxysmal atrial fibrillation (principal); Z95.818 Presence of other cardiac implants and grafts; I49.3 Ventricular premature depolarization; I10 Essential (primary) hypertension; G47.33 Obstructive sleep apnea (adult) (pediatric)
CPT/HCPCS: 93010; 99214; G2211

== ENCOUNTER → 2024-06-19 09:18 | Outpatient (BNVA) | payer MEDICARE, SELFPAY | PROVIDERS: PCP Family Medicine; Visit Provider Nurse Practitioner Family | DX: I48.0 Paroxysmal atrial fibrillation (principal); I49.3 Ventricular premature depolarization; I44.0 Atrioventricular block, first degree; I10 Essential (primary) hypertension; G47.33 Obstructive sleep apnea (adult) (pediatric); Z95.818 Presence of other cardiac implants and grafts | CPT/HCPCS: 93005; 99212 ==

== ENCOUNTER 2024-10-02 13:58 | Outpatient (REF) | payer MEDICARE, SELFPAY ==
--- OUTSIDE RECORDS SUMMARY | 2024-10-02 13:20 | XMS_ITS | Encounter Summary ---
Author Organization [employer] Address [address] [place] [address] [address] [place] [address] Care Team Providers Care Emergency Room Doctor Name Role Phone Marla Chun MD Primary Care Provider [phone] Reason for Visit * Reason Comments Cough Encounter Details Date Type Department Care Team ([facility] Contact Info) Description 10/02/2024 1:20 PM EDT Office Visit [facility] [address] [place] [address] Azar Jorgensen MD [address] [place] [address] Acute cough (Primary Dx) Social History Tobacco Use Types Packs/Day Years [...] Sign Reading Time Taken Comments Blood Pressure 134/83 10/02/2024 1:29 PM EDT Pulse 72 10/02/2024 1:29 PM EDT Temperature - - Respiratory Rate 20 10/02/2024 1:29 PM EDT Oxygen Saturation 98% 10/02/2024 1:29 PM EDT Inhaled Oxygen Concentration - - Weight 75.3 kg (166 lb) 10/02/2024 1:29 PM EDT Height 149.9 cm (4' 11 ) 10/02/2024 1:29 PM EDT Body Mass Index 33.53 10/02/2024 1:29 PM EDT documented in this encounter Progress Notes * Azar Jorgensen MD - 10/02/2024 1:20 PM EDT SUBJECTIVE Edith Solis is a 68 y.o. female who presents for Cough. Cough This is a new problem. The current episode started 1 to 4 weeks ago. The problem occurs every few minutes. The cough is Non-productive. Associated symptoms include myalgias. Pertinent negatives include no chest pain, chills, ear congestion, ear pain, fever, headaches, heartburn, hemoptysis, nasal congestion, postnasal drip, rash, rhinorrhea, sore throat, shortness of breath, sweats, weight loss or wheezing. Diagnosed w/ an URI Last Tuesday, 2 days after the onset of her symptoms. No sick contact. No reported fever or other constitutional symptoms. Prescribed Benzonatate at the urgent care clinic where she was evaluated. Problem List[1] Allergies[2] Medications Ordered Prior to Encounter[3] Review of Systems Constitutional: Negative for chills, fever and weight loss. HENT: Negative for ear pain, postnasal drip, rhinorrhea and sore throat. Respiratory: Positive for cough. Negative for hemoptysis, shortness of breath and wheezing. Cardiovascular: Negative for chest pain. Gastrointestinal: Negative for heartburn. Musculoskeletal: Positive for myalgias. Skin: Negative for rash. Neurological: Negative for headaches. OBJECTIVE Vitals: 10/02/24 1329 BP: 134/83 Pulse: 72 Resp: 20 SpO2: 98% Weight: 166 lb (75.3 kg) Height: 4' 11 (1.499 m) Physical Exam Constitutional: General: She is not in acute distress. Appearance: Normal appearance. She is not ill-appearing, toxic-appearing or diaphoretic. Cardiovascular: Rate and Rhythm: Normal rate. Heart sounds: No murmur heard. Pulmonary: Breath sounds: Wheezing present. Abdominal: Palpations: Abdomen is soft. Neurological: General: No focal deficit present. Mental Status: She is alert. Assessment/Plan Assessment/Plan Diagnoses and all orders for this visit: Acute cough Comments: Most likely has a viral infection Instructed to use her albuterol every 6-8 hours She will be called with the results of the chest x-ray and the CBC Advised to remain well-hydrated in the meantime Orders: - POCT Rapid Covid-19 KO ID NOW - POCT Rapid Influenza A OSOM - POCT Rapid Influenza B OSOM - XR Chest 2 Views; Future - CBC auto differential; Future - guaiFENesin (Mucinex) 600 MG 12 hr tablet; Take 2 tablets (1,200 mg) by mouth 2 times daily. Do not crush, chew, or split. [1] Patient Active Problem List Diagnosis Vitamin D deficiency Viral infection, unspecified Other fatigue Menopausal vasomotor syndrome Malabsorption of glucose Hypertension Hereditary hemochromatosis (CMS/HCC) Disease due to severe acute respiratory syndrome coronavirus 2 (SARS-CoV-2) Diastasis of rectus abdominis Celiac disease Calculus of kidney Benign paroxysmal positional vertigo Asthma Obesity Hot flashes Anxiety Pain in left lower leg Pain and swelling of left knee Atrial fibrillation (CMS/HCC) Breast cancer screening by mammogram Closed fracture of talus of right foot GERD (gastroesophageal reflux disease) Left atrial dilation Obstructive sleep apnea syndrome PVC's (premature ventricular contractions) Tear of medial meniscus of left knee [2] Allergies Allergen Reactions Penicillin G Unknown [3] Current Outpatient Medications on File Prior to Visit Medication Sig Dispense Refill albuterol (ProAir HFA) 108 (90 Base) MCG/ACT inhaler Inhale 2 puffs every 6 (six) hours if needed for wheezing. 8.5 g 0 aspirin 81 MG chewable tablet Chew 81 mg Once per day. azithromycin (Zithromax) 250 MG tablet Take 2 tabs day and then 1 tab daily 6 tablet 0 cetirizine (ZyrTEC) 10 MG tablet Take 10 mg by mouth in the morning. cholecalciferol VITAMIN D (Vitamin D-3) 50 MCG (2000 UT) tablet TAKE ONE TABLET EVERY MORNING 90 tablet 1 Dextromethorphan-guaiFENesin (Mucinex DM) 30-600 MG tablet sustained-release 12 hour Use 1 tab TID 28 tablet 0 Eliquis 5 MG tablet TAKE ONE TABLET TWICE DAILY 180 tablet 1 fluticasone (Flonase) 50 MCG/ACT nasal spray INHALE ONE SPRAY IN EACH NOSTRIL TWICE DAILY 16 g 0 metoprolol succinate XL (Toprol-XL) 25 MG 24 hr tablet Multiple Vitamin (Multi-Vitamin) tablet Take 1 tablet by mouth Once per day. Semaglutide-Weight Management (Wegovy) 0.25 MG/0.5ML solution auto-injector 0.25 mg once a week. 2 mL 3 spironolactone (Aldactone) 25 MG tablet Take 25 mg by mouth Once per day. venlafaxine XR (Effexor XR) 37.5 MG 24 hr capsule TAKE ONE CAPSULE BY MOUTH EVERY DAY WITH FOOD 90 capsule 1 No current facility-administered medications on file prior to visit. documented in this encounter Plan of Treatment Scheduled Orders Name Type Priority Associated Diagnoses Orde r Schedule CBC auto differential Lab Routine Acute cough Expected: 10/02/2024 (Approximate), Expires: 10/02/2025 documented as of this encounter Procedures Procedure Name Priority Date/Time Associated Diagnosis Comments XR CHEST 2 VIEWS Routine 10/02/2024 2:43 PM EDT Acute cough POCT INFLUENZA B Routine 10/02/2024 1:58 PM EDT Acute cough POCT COVID-19 AG KO ID NOW Routine 10/02/2024 1:57 PM EDT Acute cough POCT INFLUENZA A Routine 10/02/2024 1:57 PM EDT Acute cough documented in this encounter Results * XR Chest 2 Views (10/02/2024 2:43 PM EDT) Anatomical Region Laterality Modality Chest Radiographic Larisa ging 10/02/2024 2:43 PM EDT Narrative 10/02/2024 2:59 PM EDT [address] [address] XRay Report Signed Patient: Edith Solis MR#: [id number] : 1955 Acct:[id number] Age/Sex: 68 / F ADM Date: 10/02/24 Loc: [facility] Attending Dr: Azar Jorgensen MD Ordering Physician: Azar Jorgensen MD Date of Service: 10/02/24 Procedure(s): XR chest 2V Accession Number(s): [id number] cc: Azar Jorgensen MD EXAMINATION: XR CHEST 2 VIEWS HISTORY: cough COMPARISON: There are no prior studies available for comparison. FINDINGS: PA and lateral views of the chest are submitted. The lungs are expanded and clear. There is no pleural effusion, pneumothorax, or pulmonary vascular congestion. The heart is normal in size. A metallic device is seen in the region of the left atrial appendage. There is degenerative disc disease of the spine. XR/XR chest 2V IMPRESSION: Clear lungs. Electronically signed by: Allan Hall MD 10/02/2024 02:56 PM EDT Dictated By: Allan Hall MD Signed By: <Electronically signed by Allan Hall MD in OV> 10/02/24 1456 DD/ 1443 TD/TT: 10/02/24 1448 Debone Supervisor: Procedure Note Donotaaroninterpreter, Image - 10/02/[address] [address] XRay Report Signed Patient: Edith Solis AMR#: [id number] : 7Acct:[id number] Age/Sex: 68 / FADM Date: 10/02/24 Loc: HO.XRAY Attending Dr: Azar Jorgensen MD Ordering Physician: Azar Jorgensen MD Date of Service: 10/02/24 Procedure(s): XR chest 2V Accession Number(s): [id number] cc: Azar Jorgensen MD EXAMINATION: XR CHEST 2 VIEWS HISTORY: cough COMPARISON: There are no prior studies available for comparison. FINDINGS: PA and lateral views of the chest are submitted. The lungs are expanded and clear. There is no pleural effusion, pneumothorax, or pulmonary vascular congestion. The heart is normal in size. A metallic device is seen in the region of the left atrial appendage. There is degenerative disc disease of the spine. XR/XR chest 2V IMPRESSION: Clear lungs. Electronically signed by: Allan Hall MD 10/02/2024 02:56 PM EDT Dictated By: Allan Hall MD Signed By: <Electronically signed by Allan Hall MD in OV> 10/02/24 1456 DD/ 1443 TD/TT: 10/02/24 1448 Debone Supervisor: us Azar Jorgensen MD IMG XR PROCEDURES Final Res ult * POCT Rapid Influenza B OSOM (10/02/2024 1:58 PM EDT) Rapid Influenza B Ag Negative Negative, Indeterminate QC Media Lot # [id number] Lot# Expiration Date ,[id number] Swab 10/02/2024 1:58 PM EDT Azar Jorgensen MD POINT OF CARE TEST ENTER/ED IT ORDERABLES Final Result * POCT Rapid Influenza A OSOM (10/02/2024 1:57 PM EDT) Pathologist [facility] Rapid Influenza A Ag Negative Negative, Indeterminate QC Media Lot # [id number] Lot# Expiration Date [id number] Swab Nasopharyngeal structure / Unknown 10/02/2024 1:57 PM EDT Azar Jorgensen MD POINT OF CARE TEST ENTER/ED IT ORDERABLES Final Result * POCT Rapid Covid-19 KO ID NOW (10/02/2024 1:57 PM EDT) Pathologist [facility] Coronavirus Antigen PCR Negative Negative, Indeterminate, None Detected, Invalid, Specimen unsatisfactory for evaluation, Weakly Positive, 2+ QC Media Lot # [id number] Lot# Expiration Date [id number] Swab 10/02/2024 1:57 PM EDT Azar Jorgensen MD POINT OF CARE TEST ENTER/ED IT ORDERABLES Final Result documented in this encounter Visit Diagnoses Diagnosis Acute cough- Primary documented in this encounter Additional Health Concerns Assessment Noted Time PHQ-9 Depression Total Score: 4 02/10/20 23 11:02 AM EST documented as of this encounter Care Teams Emergency Room Doctor Relationship Specialty Start Date End Date Marla Chun MD [address] [place] [id number] PCP - General Family Medicine 10/16/21 documented as of this encounter
--- OUTSIDE RECORDS SUMMARY | 2024-10-02 15:18 | XMS_ITS | Clinical Summary ---
Author Organization [facility] Address [address] [place] [address] Care Team Providers Care Lead Manufacturing Technician Name Role Phone Marla Chun Primary Care Provider [phone] Allergies Active Allergy Reactions Criticality Noted Date [...] day. 30 tablet 11 12/28/19 25 Active dronedarone (MULTAQ) 400 mg tablet Take 400 mg by mouth 2 times a day with meals. Active Active Problems Problem Noted Date Diagnosed [...] mildly symptomatic paroxysmal atrial fibrillation (diagnosed 10/2022). [id number] Score of 3-4 (HTN, age, female, ?HFpEF) [...] her efforts at risk factors. Regarding anticoagulation, [id number] score is 3-4 (age, hypertension, gender, likely [...] aspirin the day of implant, and use [place]-AF protocol with aspirin/Eliquis for 3 months and [...] drink = 0.6 oz pur e alcohol) [facility] Utilities Answer Date Recorded In the [...] Sign Reading Time Taken Comments Blood Pressure 112/59 05/01/2024 9:30 AM EDT Pulse 52 05/01/2024 9:30 AM EDT Temperature 36.6 C (97.9 F) 05/01/2024 7:39 AM EDT Respiratory Rate 19 05/01/2024 9:30 AM EDT Oxygen Saturation 95% 05/01/2024 9:30 AM EDT Inhaled Oxygen Concentration - - Weight 76.7 kg (169 lb) 05/01/2024 7:39 AM EDT Height 154.9 cm (5' 1 ) 05/01/2024 7:39 AM EDT Body Mass Index 31.93 05/01/2024 7:39 AM EDT Plan of Treatment Health Maintenance Due Date Last Done Comments FOBT / Fit Test 1955 Sigmoidoscopy 1955 Pneumococcal Vaccine: 50+ Years (1 of 2 - PCV) 10/11/1975 Osteoporosis Screening 2006 Zoster Vaccines (1 of 2) 2006 Mammogram 02/20/2014 02/21/2012 RSV Vaccine (60+ years old a nd patients) (1 - Risk 60-74 years 1-dose series) 2016 COVID-19 Vaccine (1 - 2023-2 5 season) 2023 Colonoscopy 12/05/2023 12/04/2013 Alcohol/Substance Use Screening 02/15/2024 Depression Screening and Follow-Up 02/15/2024 Health Care Proxy Review 02/15/2024 Social Drivers of Health Annual Screening 02/15/2024 Influenza Vaccine (#1) 2024 Basic Metabolic Panel 01/26/2025 01/27/2024 , 12/27/2023, 12/01/2023 Cologuard 10/22/2025 10/22/2022, 10/22/2022 Colon Cancer Screening 10/22/2025 DTaP,Tdap,and Td Vaccines (3 - Td or Tdap) 02/12/2034 02/13/2024, 01/19/2012, 02/15/2000 Hepatitis C Screening Completed 02/25/2023 Hepatitis B Vaccines Aged Out No long er eligible based on patient's age to complete this topic Medical Devices Implanted Type Area Regional Maintenance Manager Device Identifier Shelf Expiration Date Model / Serial / Lot System Closure And Repair Suture-Mediate d Perclose Prostyle - [id number] Implanted:Qty: 1 on 01/02/2024 by Jensen Vyas MD at [facility] Implant Right: [employer] [id number] 10/14/2025 [id number] System Closure And Repair Suture-Mediate d Perclose Prostyle - [id number] Implanted:Qty: 1 on 01/02/2024 by Jensen Vyas MD at [facility] Implant Right: [employer] [id number] 10/14/2025 [id number] Device Closure Olga 31mm Watchman Flx Pro - S0 - [id number] Implanted:Qty: 1 on 01/02/2024 by Jensen Vyas MD at [facility] Implant Left: Left [employer] [id number] 10/30/2026 [id number] Procedures * Due to [facility] law, this organization might not be sharing negative HIV tests. Procedure Name Priority Date/Time Associated Diagnosis Comments BASIC METABOLIC PANEL Routine 01/27/2024 11:29 AM EST Paroxysmal atrial fibrillation COLONOSCOPY Routine 12/04/2013 8:31 AM EDT MAMMOGRAPHY Routine 02/21/2012 12:00 AM EST from Last 3 Months or Most Recently Relevant to Health Maintenance Results * Due to [facility] law, this organization might not be sharing [...] - 1.20 mg/dL 01/27/2024 12:25 PM EST [email or web address] Glucose 116(H) 65 - 99 mg/dL 01/27/2024 12:25 PM EST [email or web address] Calcium 10.0 8.6 - 10.5 mg/dL 01/27/2024 12:25 PM EST [email or web address] Anion Gap 11 5 - 15 01/27/2024 12:25 PM EST [email or web address] eGFR 73 >=60 mL/min/1. 73m2 01/27/2024 12:25 PM EST [email or web address] Comment:The estimated glomer ular filtration rate (eGFR) is calculated using a new formula developed by the NKF-ASN task force to eliminate race-based correction factors. The new formula uses serum/plasma creatinine, age, and gender to determine eGFR. A value below 60mls/min might indicate kidney disease and will be flagged. For additional information, see Howard et al, Am J Kidney Dis. 2021;79(2):268- 288, A Unifying Approach for GFR estimation: Recommendations of the NKF-ASN Task Force on Reassessing the Inclusion of Race in Diagnosing Kidney Disease . Blood Structure of peripheral vein / Unknown Venipuncture / Unknown 01/27/2024 11:29 AM EST 01/27/2024 11:52 AM EST Jill Chung COOL ROOFING INSTALLER LAB BLOOD ORDERABLES Final Re sult [email or web address] [address] [place] [address], [place] * COLONOSCOPY (12/04/2013 8:31 AM EDT) Colonoscopy No Polyps [facility] 12/04/2013 8:31 AM EDT Toni Toribio MD HEALTH MAINTENANCE Final Re sult [facility] * MAMMOGRAPHY (02/21/2012 12:00 AM EST) Mammogram NEGATIVE [facility] Anatomical Region Laterality Modality Other 02/21/2012 us Historical Conversion Provider HEALTH MAINTENANC E Final Result from Last 3 Months or Most Recently Relevant to Health Maintenance Insurance [facility] MCR REPLACE [place] [id number] MEDICARE Advance Directives Documents on File Type Date Recorded Patient Accounts Payable Representative Expl anation Health Care Proxy 12/27/2023 9:37 AM * Full Code (Latest Code Status on File) Date Activated Date Inactivated Comments 05/01/2024 8:06 AM 05/01/2024 12:30 PM * Full Code Date Activated Date Inactivated Comments 01/02/2024 1:55 PM 01/02/2024 8:29 PM * Full Code Date Activated Date Inactivated Comments 01/02/2024 11:35 AM 01/02/2024 1:55 PM Healthcare Agents on File Name Relationship Healthcare Agent Relationshi p Communication David Solis Spouse Health Care Agent Care Teams Lead Manufacturing Technician Relationship Specialty Start Date End Date Marla Chun [address] [place] [id number] PCP - General 11/09/23
--- OUTSIDE RECORDS SUMMARY | 2024-10-02 15:18 | XMS_ITS | Clinical Summary ---
Author Organization [facility] Address [address] [place] [id number] Phone Care Team Providers Care Sweeper Brush Maker Machine Name Role Phone Marianna Newell MD Primary Care Pro vider Allergies Active Allergy Reactions Criticality Noted Date Comments Penicillins 08/02/2017 Other reaction(s): Rash/Dermatitis Medications cholecalciferol (VITAMIN D3) 2,000 unit tablet Take 1,000 Units by mouth daily. Active albuterol 90 mcg/actuation inhaler Inhale 2 puffs into the lungs. 02/17/2018 Active fluticasone propionate (FLONASE) 50 mcg/actuation nasal spray 100 mcg by Nasal route. 09/11/2018 Active venlafaxine (EFFEXOR-XR) 37.5 MG 24 hr capsuleIndicati ons:Menopausal state Take 1 capsule (37.5 mg total) by mouth daily. 90 capsule 3 03/05/2019 Active Active Problems Problem Noted Date Diagnosed Date Diastasis of rectus abdominis 01/10/2018 Screening for breast cancer 01/10/2018 Encounter for gynecological examination without abnormal finding 01/10/2018 Strain of rectus abdominis muscle 01/10/2018 Assessment & Plan (01/10/2018 12:20 PM EST): Pt advised exam not consistent with hernia. If sx persist, to have pcp recheck at upcoming visit. Menopausal vasomotor syndrome Overview (01/10/2018): doing well with Effexor Immunizations Immunization Administration Dates Next Due Td (adult),2 Lf Tetanus Toxoid, PF, Adsorbed 02/2000 Tdap 01/19/2012 Family History Medical History Relation Comments Skin cancer Brother 1 extensive diseas e No Known Problems Brother 2 Lung cancer Father age 77 of d isease Diabetes Maternal Grandfather Osteoporosis Mother lost height and kyphosis; declines screening or treatment Stroke Mother living 2018 - ag e 84 Brain cancer Sister kidney mets Celiac disease Sister Kidney cancer Sister surgical treatme nt Lung cancer Sister 2019 spread to t he lung, stable at present in 02/2019 Osteoporosis Sister on treatment - n o fx Relation Status Comments Brother 1 Alive Brother 2 Alive Father Maternal Grandfather Mother Alive Sister Alive Social History Tobacco Use Types Packs/Day Years Used Date Smoking Tobacco: Former Smokeless Tobacco: Never Alcohol Use Standard Drinks/Week Comments No 0 (1 standard drink = 0.6 oz pur e alcohol) Education Answer Date Recorded Are you interested in more education? Not on alessio e 06/11/2022 Are you concerned about learning? Not on file 06/11/2022 No 06/11/2022 No 06/11/2022 Digital Access Answer Date Recorded No 07/10/2022 No 07/10/2022 No 07/10/2022 Reliable internet access at home? Not on file 07/10/2022 Device with a working camera? 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 Not on file Not on file Not on file Last Filed Vital Signs Vital Sign Reading Time Taken Comments Blood Pressure 134/80 03/05/2019 10:05 AM EST Pulse - - Temperature - - Respiratory Rate - - Oxygen Saturation - - Inhaled Oxygen Concentration - - Weight 80.3 kg (177 lb) 03/05/2019 10:05 AM EST Height 154.9 cm (5' 1 ) 03/05/2019 10:05 AM EST Body Mass Index 33.44 03/05/2019 10:05 AM EST Plan of Treatment Health Maintenance Due Date Last Done Comments LIPID PANEL 1955 DEPRESSION SCREENING 1968 SMOKING Hx and SMOKELESS TOBACCO SCREENING 1969 HEPATITIS C SCREENING 1974 MAMMOGRAM 1996 COLOGUARD 2001 COLONOSCOPY 2001 COLORECTAL CANCER SCREENING 2001 FIT TEST 2001 FOBT 2001 SIGMOIDOSCOPY 2001 VIRTUAL COLONOSCOPY 2001 PNEUMOCOCCAL VACCINES (50+ years) (1 of 1 - PCV) 2006 ZOSTER VACCINES (1 of 2) 2006 OSTEOPOROSIS SCREENING INITI AL (ONE-TIME) 2021 Adult Td,Tdap Booster 01/18/2022 01/19/2012 , 02/15/2000 COVID-19 VACCINE (2023-2 5 season) 2023 RSV VACCINE (1 - 1-dose 75+ series) 10/11/2031 HEPATITIS A VACCINES Aged Out No long er eligible based on patient's age to complete this topic HIB VACCINES Aged Out No longer eligi ble based on patient's age to complete this topic MENINGOCOCCAL VACCINES (ACWY) Aged Out No longer eligible based on patient's age to complete this topic MENINGOCOCCAL VACCINES (B) Aged Out N o longer eligible based on patient's age to complete this topic Medical Devices Not on file Insurance [facility] NON [facility] PCP [place] [employer] [facility] [place] [address] [facility] NON [facility] PCP [facility] [employer] NON [employer] PCP [employer] [facility] Address: [place] [address] [employer] NON [employer] PCP [place] [employer] [facility] [place] [address] [employer] NON [employer]SP[place] PCP [place] [facility] [employer] NON [place] PCP [place] [facility] [place] [address] [employer] NON NSPG PCP [employer] [facility] [employer] NON [place] PCP [facility] [employer] Care Teams Sweeper Brush Maker Machine Relationship Specialty Start Date End Date Marianna Newell MD [address] [place] [address] PCP - General Internal Medicine 01/10/19 Additional Source Comments The information contained in this document represents components of the legal health record. It is not the complete legal health record.[facility]
[2024-10-02 18:22] LABS: MANUAL DIFF FLAG NO
[2024-10-02 19:04] LABS: Hematocrit 43.7 % (37.0-47.0); Hemoglobin 14.8 g/dl (12.0-16.0); Imm Gran Abs Auto 0.02 X10*3/uL (0.00-0.03); Imm Gran Pct Auto 0.4 % (0.0-0.4); Lymphocytes Absolute Auto 1.3 X10*3/uL (1.2-4.9); Mean Corpuscular HGB Conc 33.9 g/dl (31.0-35.0); Mean Corpuscular Hemoglobin 31.4 pg (27.0-33.0); Mean Corpuscular Volume 92.8 fL (80.0-98.0); NRBC Abs Auto 0.000 X10*3/uL (0.0-0.012); NRBC Pct Auto 0.0 /100WBC (0.0-0.2); Platelet Count 241 X10*3/uL (160-400); Red Blood Count 4.71 X10*6/uL (4.20-5.50); White Blood Count 5.0 X10*3/uL (4.8-10.8)
== END 2024-10-02 13:59 | disposition home or self-care (01) ==
LOC: HO.CHCLDS 13:58
PROVIDERS: Visit Provider Internal Medicine
DX: R05.1 Acute cough (principal)
CPT/HCPCS: 36415; 85025

== ENCOUNTER 2024-10-02 14:39 | Outpatient (REF) | payer MEDICARE, SELFPAY ==
--- NOTE | ~2024-10-02 | XR_ITS ---
EXAMINATION: XR CHEST 2 VIEWS HISTORY: cough COMPARISON: There are no prior studies available for comparison. FINDINGS: PA and lateral views of the chest are submitted. The lungs are expanded and clear. There is no pleural effusion, pneumothorax, or pulmonary vascular congestion. The heart is normal in size. A metallic device is seen in the region of the left atrial appendage. There is degenerative disc disease of the spine. XR/XR chest 2V IMPRESSION: Clear lungs. Electronically signed by: Allan Hall MD 10/02/2024 02:56 PM EDT
== END 2024-10-02 14:40 | disposition home or self-care (01) ==
LOC: HO.XRAY 14:39
PROVIDERS: Visit Provider Internal Medicine
DX: R05.1 Acute cough (principal)
CPT/HCPCS: 71046

== ENCOUNTER → 2024-10-02 14:43 | Outpatient (BNV) | payer MEDICARE, SELFPAY | PROVIDERS: Visit Provider Radiology Diagnostic Radiology | DX: R05.9 Cough, unspecified (principal) | CPT/HCPCS: 71046 ==

== ENCOUNTER 2024-10-16 08:57 | Outpatient (AMB) | payer MEDICARE, SELFPAY ==
--- NOTE | 2024-10-16 09:06 | MHC.OFFVIS ---
Vital Signs 10/16/24 09:07 Height 5 ft Weight 171 lb 1.259 oz BMI 33.4 BP 102/52 L Blood Pressure Location Lt brachial Position Sitting Pulse 65 Pulse Source Monitor Intake Visit Reasons: ekg 3 mth r/s 09-25-24 Allergies Penicillins Allergy (Unknown, Verified 10/16/24 09:09) Unknown Medication List - Last Reconciled 10/16/24 by Dede Arciniega, RAILROAD CAR CHECKER-C albuterol sulfate 90 mcg/actuation inhalation aspirin 81 mg PO DAILY cholecalciferol (vitamin D3) 50 mcg PO QAM dronedarone (Multaq) 400 mg PO BID fluticasone propionate 50 mcg/actuation sprays intranasal [Knee scooter As directed] metoprolol succinate ER 12.5 mg (1/2 x 25 mg) PO DAILY 90 days spironolactone (Aldactone) 25 mg PO DAILY venlafaxine ER 37.5 mg PO DAILY HPI HPI ekg 3 mth r/s 09-25-24: Details: Edith is a 69-year-old female with past medical history of asthma, hypertension, paroxysmal atrial fibrillation suppressed with Multaq, status post Watchman device and moderately severe sleep apnea now on CPAP who now presents for follow-up. Today she reports that her smart watch did record an episode of atrial fibrillation on 08/23/2024. She has had no other episodes since last visit. She does not feel her atrial fibrillation. She has been compliant with her CPAP mask each night. No shortness of breath, PND, orthopnea, edema. No chest discomfort at rest or with activities. No lightheadedness, presyncope, syncope. 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 Review of Systems Const All systems reviewed & are unremarkable except as noted in HPI and below Denies daytime sleepiness, Denies difficulty sleeping, Reports fatigue, Denies snoring, Denies stops breathing during sleep and Denies weakness Card Denies chest pain, Denies rapid heart rate, Denies irregular heart rhythm, Denies claudication, Denies leg edema, Denies lightheadedness, Denies palpitations, Denies dyspnea, Denies dyspnea on exertion, Denies orthopnea, Denies paroxysmal nocturnal dyspnea and Denies slow heart rate Resp Denies cough, Denies dyspnea, Denies dyspnea on exertion and Denies snoring GI Reports no additional complaints, Denies hematochezia, Denies change in stool character and Denies dyspepsia Musc Denies abnormal gait, Denies muscle weakness and Denies numbness Neuro Denies abnormal gait, Denies numbness and Denies weakness Endo Reports fatigue and Denies palpitations Physical Exam Vital Signs: Last Vital Signs Pulse 65 10/16/24 09:07 BP 102/52 L 10/16/24 09:07 BMI result Body Mass Index 33.4 Const General: cooperative, healthy appearing, comfortable and no acute distress Orientation/consciousness: patient oriented x3 Neck Neck: Yes normal visual inspection Chest Chest palpation & inspection: normal inspection of the chest Resp Effort & Inspection: normal respiratory effort Auscultation: clear to auscultation bilaterally, no rales, no rhonchi and no wheezes Cardio Rate: regular rate Rhythm: regular rhythm Heart sounds: S1 normal heart sound present, S2 normal heart sound present, no gallops, no murmurs and no rubs Neuro General: patient oriented x3 Extrem General: Yes normal to inspection and No no pedal edema Psych Appearance: grossly normal Mental Status: mental status grossly normal Speech and movement: Normal speech and movement present Office Procedures EKG Details: Today, read by me, sinus rhythm, 1st degree avb, Qtc 401ms, rate 65 [id number], Complete Assessment & Plan Assessment & Plan (1) A-fib: Comment: new dx 10/2022-now follows w/[facility]-taking eliquis/metoprolol for AFIB Code(s): I48.91 - Unspecified atrial fibrillation Category: Medical Qualifiers: Atrial fibrillation type: paroxysmal Qualified Code(s): I48.0 - Paroxysmal atrial fibrillation Plan: Finding of paroxysmal atrial fibrillation, asymptomatic, 11/12/2022 when she came for knee surgery. Chads Vasc score of 3. She was put on Eliquis for anticoagulation and metoprolol for rate control.. Holter monitor done 12/24/2022 for 4 days shows sinus rhythm with average heart rate 66, heart rate range 48 to 160, AFib 6.5% of time with heart rate up to 108, PVCs 7.5% of time. An echocardiogram done 12/28/2022 showed EF 60-65%, left atrium severely dilated. An exercise stress test done 12/24/2022 showed exercise 8 minutes 31 seconds, mild shortness of breath, no EKG changes of ischemia. A home sleep study done on 02/28/2023 showed moderately severe sleep apnea and she is now on CPAP. She has been on Multaq for rhythm control and reports 1 episode of AFib in the last 6 months. EKG done today shows a sinus rhythm with first-degree AV block, rate 65. She did undergo a Watchman device 01/02/2024 and is on daily aspirin. Will have her continue Multaq, metoprolol. AFib ablation discussed: she will think about it. Will arrange for office EKG in 3 months. Cardiology follow-up 6 months, sooner if needed. (2) Presence of Watchman left atrial appendage closure device: Comment: Watchman device placed 01/02/2024 at [facility]. Transesophageal echocardiogram done [facility] 05/01/2024 shows normal Bi V systolic function, mild mitral and tricuspid regurgitation, left atrial appendage has been occluded with a 31 mm watchman FLX pro, there is no evidence of tonny device leak or device related thrombus. Code(s): Z95.818 - Presence of other cardiac implants and grafts Category: Medical Plan: Watchman device placed 01/02/2024 at [facility]. 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 Transesophageal echocardiogram was completed postprocedure which does show occlusion of left atrial appendage. She is off Eliquis and on daily aspirin. (3) PVC's (premature ventricular contractions): Code(s): I49.3 - Ventricular premature depolarization Category: Medical Plan: Frequent PVCs seen on 1st Holter as above. Asymptomatic. Echo with normal EF. On low-dose beta-norma and with CPAP repeat Holter shows only rare ectopy (4) HTN (hypertension): Code(s): I10 - Essential (primary) hypertension Category: Medical Qualifiers: Hypertension type: primary hypertension Qualified Code(s): I10 - Essential (primary) hypertension Plan: Blood pressure goal less than 130/80. Well controlled at present. No med changes made at this time (5) Obstructive sleep apnea: Code(s): G47.33 - Obstructive sleep apnea (adult) (pediatric) Category: Medical Plan: Newer diagnosis of sleep apnea. Following with pulmonology. Reports compliance with CPAP Plan Time spent on chart review, documentation, interview and assessment Coding Level of Care Code Est Pt Level 4 (68519) Complex EM visit Add On G2211 Diagnoses Paroxysmal atrial fibrillation I48.0 Atrial fibrillation type: paroxysmal Presence of Watchman left atrial appendage closure device Z95.818 PVC's (premature ventricular contractions) I49.3 Primary hypertension I10 Hypertension type: primary hypertension Obstructive sleep apnea G47.33 CPT Codes EKG - CPT: [id number], Complete ([id number]) Time Spent (min) 28
[2024-10-16 09:07] VITALS: BP 102/52; PULSE 65; BMI 33.4
--- OUTSIDE RECORDS SUMMARY | 2024-10-16 09:45 | XMS_ITS | Encounter Summary ---
Author Organization [employer] Address [address] [place] [address] [address], [place] [address] Care Team Providers Care Enzyme Chemist Name Role Phone Marla Chun MD Primary Care Provider Reason for Visit * Reason Comments Med Refill Encounter Details Date Type Department Care Team ([facility] st Contact Info) Description 08/28/2022 Refill [facility] MED [facility] PEDS [address] [place] [address] Javier Munoz MD [address] [place] [address] Chronic migraine without aura without status migrainosus, [...] intractable documented in this encounter Care Teams Enzyme Chemist Relationship Specialty Start Date End Date Marla Chun MD [address] [place] [address] PCP - General Family Medicine 10/16/21 documented as of this encounter
--- OUTSIDE RECORDS SUMMARY | 2024-10-16 09:45 | XMS_ITS | Encounter Summary ---
Author Organization [facility] Address [address] [place] [address] Care Team Providers Care Payroll And Benefits Specialist Name Role Phone Adiel Marla Primary Care Provider [phone] Encounter Details Date Type Department Care Team (Late st Contact Info) Description 12/05/2023 Orders Only [facility] Entrance B Interventional Radiology [address] [place] [id number] Ted Miles MD [address] [place] [id number] Social History Tobacco Use Types Packs/Day Years [...] on filedocumented in this encounter Care Teams Payroll And Benefits Specialist Relationship Specialty Start Date End Date Marla Chun [address] [place] [address] PCP - General 11/09/23 documented as of this encounter
--- OUTSIDE RECORDS SUMMARY | 2024-10-16 09:45 | XMS_ITS | Encounter Summary ---
Author Organization [employer] Address [address] [place] [address] [address] [place] [address] Care Team Providers Care Print Finishing Worker Name Role Phone Marla Chun MD Primary Care Provider [phone] Reason for Visit * Reason Onset Date Comments Nurse Triage 11/12/2022 Encounter Details Date Type Department Care Team ([facility] st Contact Info) Description 11/12/2022 Telephone [facility] MED & PEDS [address] [place], [place] [id number] Marla Chun MD [address] [place] [address] Nurse Triage Social History Tobacco Use Types [...] to ED now. Pt. Will go to [facility] ED now. Her will drive her. * Telephone Encounter - Emperatriz Guerra RN - 11/12/2022 9:30 AM EDT Called pt. She sounds clear, alert and oriented and not Short of breath. Pt. States that she went to [facility] this am for surgery and they cancelled her surgery because her EKG shows that she is in A-fib.A doctor came into the surgery room and evaluated pt. And told her to go to her Dr today and get a referral to a Casting Plug Assembler. I asked her why they did not [...] advised that she should have stayed at [facility] at went to the ED for further evaluation but pt. States they told her to make appt. With her PCP today for referral. I did put pt. In schedule fortoday at 240pm in [facility] but, I will send this note [...] breath. Pt. States that she went to [facility] this am for surgery and they cancelled her surgery because her EKG shows that she is in A-fib.A doctor came into the surgery room and evaluated pt. And told her to go to her Dr today and get a referral to a Casting Plug Assembler. I asked her why they did not [...] advised that she should have stayed at [facility] at went to the ED for further evaluation but pt. States they told her to make appt. With her PCP today for referral. I did put pt. In schedule fortoday at 240pm in [facility] but, I will send this note [...] heartbeat ) from personal wearable device (e.g., MommyCoach Watch) * All higher-acuity triage questions were [...] immediately and get a referral to a hydraulic jack adjuster. documented in this encounter Plan of Treatment Not on file documented as of this encounter Visit Diagnoses Not on filedocumented in this encounter Additional Health Concerns Assessment Noted Time PHQ-9 Depression Total Score: 3 10/01/19 23 1:36 PM EDT documented as of this encounter Care Teams Print Finishing Worker Relationship Specialty Start Date End Date Marla Chun MD [address] [place] [address] PCP - General Family Medicine 10/16/21 documented as of this encounter
--- OUTSIDE RECORDS SUMMARY | 2024-10-16 09:45 | XMS_ITS | Clinical Summary ---
Author Organization [employer] Address [address] [facility] 7[address] [place] [address] Care Team Providers Care Manager Outreach Name Role Phone Marla Chun MD Primary Care Provider [phone] Allergies Active Allergy Reactions Criticality Noted Date Comments Penicillin G Unknown 08/07/2021 Medications * This document contains information received from the source organization and may not represent a complete record from that organization. cetirizine (ZyrTEC) 10 MG tablet Take 10 mg by mouth in the morning. Active metoprolol succinate XL (Toprol-XL) 25 MG 24 hr tablet 02/08/2023 Act jag spironolactone (Aldactone) 25 MG tablet Take 25 mg by mouth Once per day. Active Multiple Vitamin (Multi-Vitamin) tablet Take 1 tablet by mouth Once per day. Active aspirin 81 MG chewable tablet Chew 81 mg Once per day. Active albuterol (ProAir HFA) 108 (90 Base) MCG/ACT inhaler Inhale 2 puffs every 6 (six) hours if needed for wheezing. 8.5 g 02/13/2024 Active Semaglutide-Weig ht Management (Wegovy) 0.25 MG/0.5ML solution auto-injectorInd ications:Obesity (BMI 30-39.9) 0.25 mg once a week. 2 mL 3 03/12/2024 Active azithromycin (Zithromax) 250 MG tablet Take 2 tabs day and then 1 tab daily 6 tablet 04/06/2024 Active Dextromethorphan -guaiFENesin (Mucinex DM) 30-600 MG tablet sustained-releas e 12 hour Use 1 tab TID 28 tablet 04/06/2024 Active Eliquis 5 MG tablet TAKE ONE TABLET TWICE DAILY 180 tablet 1 05/16/2024 Active cholecalciferol VITAMIN D (Vitamin D-3) 50 MCG (1999) tabletIndication s:Vitamin D deficiency TAKE ONE TABLET EVERY MORNING 90 tablet 1 08/08/2024 Active venlafaxine XR (Effexor XR) 37.5 MG 24 hr capsuleIndicatio ns:Chronic migraine without aura without status migrainosus, not intractable TAKE ONE CAPSULE BY MOUTH EVERY DAY WITH FOOD 90 capsule 1 08/08/2024 Active fluticasone (Flonase) 50 MCG/ACT nasal spray INHALE ONE SPRAY IN EACH NOSTRIL TWICE DAILY 16 g 09/10/2024 Active guaiFENesin (Mucinex) 600 MG 12 hr tabletIndication s:Acute cough Take 2 tablets (1,200 mg) by mouth 2 times daily. Do not crush, chew, or split. 120 tablet 11 10/02/2024 10/03/19 26 Active Active Problems Problem Noted Date Diagnosed Date Closed fracture of talus of right foot PVC's (premature ventricular contractions) 02/12 Tear of [...] she needs BB for rate control. Cont eliquis. Has f.up with cards. Assessment & Plan [...] recommended reduction of 20-30% of maintenance calories; certified addiction counselor referral offered. 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 PLAN: (check all that apply) New/Additional Services needed: Off-site services for Behavioral Health Integration Plan: External OP therapy referral Patient Self Plan: Patient to utilize skills provided in intervention , Patient to reach out to [facility] team as needed, and Comply with medication [...] Encounters Date Type Department Care Team Description 10/04/2024 Results Follow-Up [facility] [address] [place] [address] Cony Morillo, RN POCT Rapid Covid-19 KO ID NOW, POCT Rapid Influenza A OSOM, POCT Rapid Influenza B OSOM, CBC auto differential 10/03/2024 Orders Only [facility] [address] [place] [address] Azar Jorgensen MD Other eosinophilia (Primary Dx); Acute sinusitis with symptoms > 10 days 10/02/2024 1:20 PM EDT Office Visit [facility] [address] [place] [address] Azar Jorgensen MD Acute cough (Primary Dx) 10/02/2024 Travel 10/02/2024 Telephone [facility] [address] [place] [address] Marla Chun MD Nurse Triage 09/25/2024 Travel 09/25/2024 Telephone [facility] [address] [place] [address] Marla Chun MD Nurse Triage 09/07/2024 Refill [facility] [address] [place] [address] Azar Jorgensen MD 08/08/2024 Refill [facility] [address] [place] [address] Marla Chun MD Vitamin D deficiency; Chronic migraine without aura without status migrainosus, not intractable from Last 3 Months Immunizations Immunization Administration Dates Next Due Td (adult), unspecified [...] the past 12 months, has t he [employer], gas, oil or water company threatened to [...] Pulse 72 10/02/2024 1:29 PM EDT Temperature 36.5 C (97.7 F) 04/06/2024 10:05 AM EST Respiratory Rate 20 10/02/2024 1:29 PM EDT Oxygen Saturation 98% 10/02/2024 1:29 PM EDT Inhaled Oxygen Concentration - - Weight 75.3 kg (166 lb) 10/02/2024 1:29 PM EDT Height 149.9 cm (4' 11 ) 10/02/2024 1:29 PM EDT Body Mass Index 33.53 10/02/2024 1:29 PM EDT Plan of Treatment Health Maintenance Due Date Last Done Comments CT Colonography 1955 Colonoscopy 1955 FIT 1955 FOBT 1955 Sigmoidoscopy 1955 Mammogram 1996 SDOH Screening 10/01/2023 09/30/2022 Depression Screening 02/10/2024 02/09/2023, 02/09/2023 Influenza Vaccine (#1) 2024 Alcohol/Substance Use Screening 02/12/2025 02/13/2024 COVID-19 Vaccine [...] tponed from 2006 (Patient Refused) Tobacco Screening 10/02/2025 10/02/2024 Colorectal Cancer Screening 10/22/2025 FIT DNA/Cologuard 10/22/2025 [...] patient's age to complete this topic Meningococcal B Vaccine Aged Out No l onger eligible based on patient's age to complete [...] Comments XR CHEST 2 VIEWS Routine 10/02/2024 2:4 3 PM EDT Acute cough CBC WITH AUTO DIFFERENTIAL Routine 10/02/2024 2:00 PM EDT Acute cough POCT INFLUENZA B Routine 10/02/2024 1:58 PM EDT Acute cough POCT INFLUENZA A Routine 10/02/2024 1:57 PM EDT Acute cough POCT COVID-19 AG KO ID NOW Routine 10/02/2024 1:57 PM EDT Acute cough HEPATITIS C AB W/REFL TO HCV RNA, QN, PCR Routine 02/25/2023 3:53 PM EST Encounter for health-related screening LIPID PANEL, STANDARD Routine 02/25/2023 3:53 PM EST Hypertension, unspecified type LAB COLOGUARD COLON CANCER SCREEN Routine 10/22/2022 10:04 AM EDT Colon cancer screening from Last 3 Months or Most Recently Relevant to Health Maintenance Results * XR Chest 2 Views (10/02/2024 2:43 PM EDT) Anatomical Region Laterality Modality Chest Radiographic Larisa ging 10/02/2024 2:43 PM EDT Narrative 10/02/2024 2:59 PM EDT [place] [address] XRay Report Signed Patient: Edith Solis MR#: [id number] : 1955 Acct:[id number] Age/Sex: 68 / F ADM Date: 10/02/24 Loc: [facility] Attending Dr: Azar Jorgensen MD Ordering Physician: Azar Jorgensen MD Date of Service: 10/02/24 Procedure(s): XR chest 2V Accession Number(s): [id number] cc: Azar Jorgensen MD EXAMINATION: XR CHEST [...] Allan Hall MD 10/02/2024 02:56 PM EDT RP Dictated By: Allan Hall MD Signed By: <Electronically signed by Allan Hall MD in OV> 10/02/24 1456 DD/ 1443 TD/TT: 10/02/241447 Barker Peeler: Procedure Note Donotuseinterpreter, Image - 10/02/2024 [place] [address] XRay Report Signed Patient: Edith Solis AMR#: [id number] : 7Acct:[id number] Age/Sex: 68 / FADM Date: 10/02/24 Loc: KEN Attending Dr: Azar Jorgensen MD Ordering Physician: Azar Jorgensen MD Date of Service: 10/02/24 Procedure(s): XR chest 2V Accession Number(s): [id number] cc: Azar Jorgensen MD EXAMINATION: XR CHEST [...] Allan Hall MD 10/02/2024 02:56 PM EDT RP Dictated By: Allan Hall MD Signed By: <Electronically signed by Allan Hall MD in OV> 10/02/24 1456 DD/ 1443 TD/TT: 10/02/241447 Barker Peeler: us Azar Jorgensen MD IMG XR PROCEDURES Final Res ult * (ABNORMAL) CBC auto differential (10/02/2024 2:00 PM EDT) White Blood Count 5.0 4.8 - 10.8 X10*3/uL [facility] Red Blood Count 4.71 4.20 - 5.50 X10*6/uL [facility] Hemoglobin 14.8 12.0 - 16.0 g/dl [facility] Hematocrit 43.7 37.0 - 47.0 % [facility] Mean Corpuscular Volume 92.8 80.0 - 98.0 fL [facility] Mean Corpuscular Hemoglobin 31.4 27.0 - 33.0 pg [facility] Mean Corpuscular HGB Conc 33.9 31.0 - 35.0 g/dl [facility] Red Cell Distribution Width 12.5 11.0 - 16.0 % [facility] Platelet Count 241 160 - 400 X10*3/uL [facility] Mean Platelet Volume 11.5 9.4 - 12.3 fL [facility] Neutrophils Percent Auto 60.6 45 - 73 % [facility] Imm Gran Pct Auto 0.4 0.0 - 0.4 % [facility] Lymphocytes Percent Auto 25.2 20 - 40 % [facility] Monocytes Percent Auto 8.2 2 - 11 % [facility] Eosinophils Percent Auto 4.6(H) 0 - 4 % [facility] Basophils Percent Auto 1.0 0 - 2 % [facility] NRBC Pct Auto 0.0 0.0 - 0.2 /100WBC [facility] Neutrophils Absolute Auto 3.1 2.0 - 8.3 x10*3/uL [facility] Imm Gran Abs Auto 0.02 0.00 - 0.03 X10*3/uL [facility] Lymphocytes Absolute Auto 1.3 1.2 - 4.9 X10*3/uL [facility] Monocytes Absolute Auto 0.4 0.1 - 1.2 X10*3/uL [facility] Eosinophils Absolute Auto 0.2 0.0 - 0.4 X10*3/uL [facility] Basophils Absolute Auto 0.1 0.0 - 0.2 X10*3/uL [facility] NRBC Abs Auto 0.000 0.0 - 0.012 X10*3/uL [facility] Blood Venous blood specimen / Unknown 10/02/2024 2:00 PM EDT 10/02/2024 6:18 PM EDT Azar Jorgensen MD LAB BLOOD ORDERABLES Final Result [facility] [address] [place] [phone] * POCT Rapid Influenza B OSOM (10/02/2024 1:58 PM EDT) [facility] Rapid Influenza B Ag Negative Negative, Indeterminate QC Media Lot # [id number] Lot# Expiration Date Swab 10/02/2024 1:58 PM EDT Azar Jorgensen MD POINT OF CARE TEST ENTER/ED IT ORDERABLES Final Result * POCT Rapid Covid-19 KO ID NOW (10/02/2024 1:57 PM EDT) [facility] Coronavirus Antigen PCR Negative Negative, Indeterminate, None Detected, Invalid, Specimen unsatisfactory for evaluation, Weakly Positive, 2+ QC Media Lot # [id number] Lot# Expiration Date [id number] Swab 10/02/2024 1:57 PM EDT Azar Jorgensen MD POINT OF CARE TEST ENTER/ED IT ORDERABLES Final Result * POCT Rapid Influenza A OSOM (10/02/2024 1:57 PM EDT) [facility] Rapid Influenza A Ag Negative Negative, Indeterminate QC Media Lot # [id number] Lot# Expiration Date Swab Nasopharyngeal structure / Unknown 10/02/2024 1:57 PM EDT us Azar Jorgensen MD POINT OF CARE TEST ENTER/ED IT ORDERABLES Final Result * Hepatitis C Antibody with Reflex to HCV, RNA, Quantitative, Real-Time PCR (02/25/2023 3:53 PM EST) Hepatitis C Antibody Nonreactive Nonreactive [facility] Comment:Antibodies to HCV no t detected; does not exclude early acuteHCV infection. Blood Venous blood specimen / Unknown 02/25/2023 3:53 PM EST 02/25/2023 5:33 PM EST us Marla Chun MD LAB BLOOD ORDERABLES Final Re sult [facility] [address] [place] [address] [phone] * Lipid Panel, Standard (02/25/2023 3:53 PM EST) Triglycerides 143 <150 mg/dL [facility] Comment:Desirable Triglyceri de: less than 150 mg/dLBorderline High Triglyceride 150-199 mg/dLHigh Triglyceride: 200-499 mg/dLVery High Triglyceride: greater than or equal to 5OO mg/dL Cholesterol 158 <200 mg/dL [facility] Comment:Desirable Cholestero l: less than 200 mg/dLBorderline High Cholesterol: 200-239 mg/dLHigh Cholesterol: greater than 239 mg/dL LDL Cholesterol Calculated 86 <100 mg/dL [facility] Comment:Desirable LDL: less than 100 mg/dLNear Optimal/Above Optimal LDL: 110- 129 mg/dLBorderline High LDL: 130-159 mg/dLHigh LDL: 160-189 mg/dLVery High LDL: greater than or equal to 190 mg/dL HDL Cholesterol 44 >40 mg/dL [facility] Comment:Desirable HDL: great er than 40 mg/dL Note: This HDL assay may give artificially low results in patients with liver disease. Blood Venous blood specimen / Unknown 02/25/2023 3:53 PM EST 02/25/2023 5:33 PM EST us Marla Chun MD LAB BLOOD ORDERABLES Final Re sult [facility] [address] [place] [phone] * Cologuard?? colon cancer screening (10/22/2022 10:04 AM EDT) Cologuard Result Negative Negative 10/30/19 4:35 AM EDT [facility] (CLIA #:[id number]) Comment: NEGATIVE TEST RESULT. A negative Cologuard result indicates a low likelihood that a colorectal cancer (CRC) or advanced adenoma (adenomatous polyps with more advanced pre-malignant features) is present. The chance that a person with a negative Cologuard test has a colorectal cancer is less than 1 in 1500 (negative predictive value >99.9%) or has an advanced adenoma is less than 5.3% (negative predictive value 94.7%). These data are based on a prospective cross-sectional study of 10,000 individuals at average risk for colorectal cancer who were screened with both Cologuard and colonoscopy. (Patricia Wang et al, N Engl J Med 2014;370(14):2571-8381) The normal value (reference range) for this assay is negative. COLOGUARD RE-SCREENING RECOMMENDATION: Periodic colorectal cancer screening is an important part of preventive healthcare for asymptomatic individuals at average risk for colorectal cancer. Following a negative Cologuard result, the [place] Cancer Society and U.S. Multi-Society Task Force screening guidelines recommend a Cologuard re-screening interval of 3 years. References: [place] [employer] Guideline for Colorectal Cancer Screening: https://www.cancer.org/cancer/zubyw-rmavof-mpwfah/icqijrmtj-csyuyzlxx-lttoxra/ac s-rec ommendations.html.; Jerod MALCOLM, Desean CR, Fe IrvinK, Colorectal Cancer Screening: Recommendations for Physicians and Patients from the U.S. Multi-Society Task Force on Colorectal Cancer Screening , Am J Gastroenterology 2017; 112:9720-7677. TEST DESCRIPTION: Composite algorithmic analysis of stool DNA-biomarkers with hemoglobin immunoassay. Quantitative values of individual biomarkers are not [...] (Patricia Whitlock al, N Engl J Med 2014;370(14):3765-1655.) Cologuard may produce a false negative or false positive result (no colorectal cancer or precancerous polyp present at colonoscopy follow up). A negative Cologuard test result does not guarantee the absence of CRC or advanced adenoma (pre-cancer). The current Cologuard screening interval is every 3 years. ([place] Cancer Society and U.S. Multi-Society Task Force). Cologuard performance data in a 10,000 patient pivotal study using colonoscopy as the reference method can be accessed at the following location: [email or web address]/results. Additional description of the Cologuard test process, warnings and precautions can be found at [email or web address]. Stool specimen (specimen) 10/22/2022 10:04 AM EDT 10/23/2022 6:52 PM EDT us Marla Chun MD LAB MOLECULAR DIAGNOSTICS ORD ERABLES Final Result [facility] (CLIA #:[id number]) [place] [address], [place] [phone] from Last 3 Months or Most Recently Relevant to Health Maintenance Insurance [facility] MEDICARE ADVANTAGE HMO Care Teams Manager Outreach Relationship Specialty Start Date End Date Marla Chun MD [address] [place] [phone] PCP - General Family Medicine 10/16/21
--- OUTSIDE RECORDS SUMMARY | 2024-10-16 09:45 | XMS_ITS | Encounter Summary ---
Author Organization [employer] Address [address] [facility] 7t [place] [address] Care Team Providers Care Stile Ripsaw Operator Name Role Phone Marla Chun MD Primary Care Provider [phone] Reason for Visit * Reason Comments Med Refill Encounter Details Date Type Department Care Team ([facility] Contact Info) Description 02/06/2024 Refill [facility] [address] [place] [address] Marla Chun MD [address] [place] [address] Social History Tobacco Use Types Packs/Day Years [...] documented as of this encounter Care Teams Stile Ripsaw Operator Relationship Specialty Start Date End Date Marla Chun MD [address] [place] [phone] PCP - General Family Medicine 10/16/21 documented as of this encounter
--- OUTSIDE RECORDS SUMMARY | 2024-10-16 09:45 | XMS_ITS | Encounter Summary ---
Author Organization [employer] Address [address] [facility] [address] [place] [address] Care Team Providers Care Refinery Operator Light Ends Recovery Name Role Phone Marla Chun MD Primary Care Provider [phone] Reason for Visit * Reason Onset Date Comments Nurse Triage 12/06/2023 Encounter Details Date Type Department Care Team ([facility] st Contact Info) Description 12/06/2023 Telephone [facility] [address] [place] [address] Marla Chun MD [address] [place] [address] Nurse Triage Social History Tobacco Use Types [...] documented as of this encounter Care Teams Refinery Operator Light Ends Recovery Relationship Specialty Start Date End Date Marla Chun MD [address] [place] [address] PCP - General Family Medicine 10/16/21 documented as of this encounter
--- OUTSIDE RECORDS SUMMARY | 2024-10-16 09:45 | XMS_ITS | Clinical Summary ---
Author Organization [facility] Address [address] [place] [phone] Phone Care Team Providers Care Presser All Around Name Role Phone Marianna Newell MD Primary [...] topic Medical Devices Not on file Insurance [facility] PCP RUFE [employer] CONNECTORCARE [facility] PCP [facility] CONNECTORCARE [place] NON NSPG PCP S[place]VER [place]ARE [place] NON NSPG PCP SILVER [place] CONNECTORCARE [place] NON NSPG PCP SILVER CLARITY CONNE[employer]CARE [place] NON NSPG PCP SILVER [place]ARE [place] NON NSPG PCP SILVER CLARITY CONNECTORCARE [place] NON NSPG PCP SILVER CLARITY [facility] NON NSPG PCP SILVER [place] CONNECTORCARE Care Teams Presser All Around Relationship Specialty Start Date End Date Marianna Newell MD [address] [place] [address] PCP - General Internal Medicine 01/10/19 Additional Source Comments The information contained in this document represents components of the legal health record. It is not the complete legal health record.[facility]
--- OUTSIDE RECORDS SUMMARY | 2024-10-16 09:45 | XMS_ITS | Clinical Summary ---
Author Organization [facility] Address [address] [place] [address] Care Team Providers Care Purchasing Administrative Assistant Name Role Phone Marla Chun Primary Care Provider [phone] Allergies Active Allergy Reactions Criticality Noted Date [...] mildly symptomatic paroxysmal atrial fibrillation (diagnosed 10/2022). [id number] Score of 3-4 (HTN, age, female, ?HFpEF) [...] her efforts at risk factors. Regarding anticoagulation, [id number] score is 3-4 (age, hypertension, gender, likely [...] aspirin the day of implant, and use [place]-AF protocol with aspirin/Eliquis for 3 months and [...] drink = 0.6 oz pur e alcohol) [facility] Utilities Answer Date Recorded In the [...] 02/20/2014 02/21/2012 RSV Vaccine (60+ years old and patients) (1 - Risk 60-74 years 1-dose series) 2016 Colonoscopy 12/05/2023 12/04/2013 Alcohol/Substance Use Screening 02/15/2024 Depression Screening and Follow-Up 02/15/2024 Health Care Proxy Review 02/15/2024 Social Drivers of Health Annual Screening 02/15/2024 COVID-19 Vaccine ( season) 2024 Influenza Vaccine (#1) 2024 Basic Metabolic Panel 01/26/2025 01/27/2024 , 12/27/2023, 12/01/2023 Cologuard 10/22/2025 10/22/2022, 10/22/2022 Colon Cancer Screening 10/22/2025 Diabetes Screening 01/26/2027 01/27/2024, 1 02/25/2023, 12/01/2023, Additional history exists DTaP,Tdap,and Td Vaccines (3 - Td or Tdap) 02/12/2034 02/13/2024, 01/19/2012, 02/15/2000 Hepatitis C Screening Completed 02/25/2023 Hepatitis B Vaccines Aged Out No long er eligible based on patient's age to complete this topic Medical Devices Implanted Type Area Converting Supervisor Device Identifier Shelf Expiration Date Model / Serial / Lot System Closure And Repair Suture-Mediate d Perclose Prostyle - [id number] Implanted:Qty: 1 on 01/02/2024 by Jensen Vyas MD at [facility] Implant Right: [employer] [id number] 10/14/2025 [id number] / [id number] System Closure And Repair Suture-Mediate d Perclose Prostyle - [id number] Implanted:Qty: 1 on 01/02/2024 by Jensen Vyas MD at [facility] Implant Right: [employer] [id number] 10/14/2025 [id number] / [id number] Device Closure Olga 31mm Watchman Flx Pro - S0 - [id number] Implanted:Qty: 1 on 01/02/2024 by Jensen Vyas MD at [facility] Implant Left: Left [employer] [id number] 10/30/2026 [id number] Procedures * Due to [place] [employer] law, this organization might not be sharing negative HIV tests. Procedure Name Priority Date/Time Associated Diagnosis Comments BASIC METABOLIC PANEL Routine 01/27/2024 11:29 AM EST Paroxysmal atrial fibrillation COLONOSCOPY Routine 12/04/2013 8:31 AM EDT MAMMOGRAPHY Routine 02/21/2012 12:00 AM EST from Last 3 Months or Most Recently Relevant to Health Maintenance Results * Due to [place] [employer] law, this organization might not be sharing [...] - 1.20 mg/dL 01/27/2024 12:25 PM EST [facility] Glucose 116(H) 65 - 99 mg/dL 01/27/2024 12:25 PM EST [facility] Calcium 10.0 8.6 - 10.5 mg/dL 01/27/2024 12:25 PM EST [facility] Anion Gap 11 5 - 15 01/27/2024 12:25 PM EST [facility] eGFR 73 >=60 mL/min/1. 73m2 01/27/2024 12:25 PM EST [facility] Comment:The estimated glomer ular [...] EST 01/27/2024 11:52 AM EST Jill Chung NP LAB BLOOD ORDERABLES Final Re sult [facility] [address] [place] [address], * COLONOSCOPY (12/04/2013 8:31 AM EDT) Colonoscopy No Polyps [facility] 12/04/2013 8:31 AM EDT Toni Toribio MD HEALTH MAINTENANCE Final Re sult [facility] * MAMMOGRAPHY (02/21/2012 12:00 AM EST) Mammogram NEGATIVE [facility] Anatomical Region Laterality Modality Other 02/21/2012 us Historical Conversion Provider HEALTH MAINTENANC E Final Result from Last 3 Months or Most Recently Relevant to Health Maintenance Insurance [facility] [employer] MEDICARE Advance Directives Documents on File Type Date Recorded Patient Director Of Neurology Expl anation Health Care Proxy 12/27/2023 9:37 [...] Solis Spouse Health Care Agent Care Teams Purchasing Administrative Assistant Relationship Specialty Start Date End Date Marla Chun [address] [place] [phone] PCP - General 11/09/23
--- OUTSIDE RECORDS SUMMARY | 2024-10-16 09:46 | XMS_ITS | Encounter Summary ---
Author Organization [employer] Address [address] [place] [address] Care Team Providers Care Financial Adviser Name Role Phone Marla Chun MD Primary Care Provider [phone] Encounter Details Date Type Department Care Team (Late st Contact Info) Description 05/01/2024 Orders Only [facility] [address] [place] [address] ProviderJuana MD Social History Tobacco Use Types Packs/Day Years Used Date Smoking Tobacco: Never Smokeless Tobacco: Never Depression Answer Date Recorded Patient Health Questionnaire-9 Score 4 02/09/2023 Patient Health Questionnaire-9 Score 4 02/09/2023 Last PHQ-9: Questionnaire Data Not on file 1 04/12/2022 Housing Stability Answer Date Recorded What is your housing situation today? I have izaiahzach garcía 11/29/[address] you [...] Procedure Name Priority Date/Time Associated Diagnosis Comments TRANSESOPHAGEAL ECHO (SELVIN) Routine 05/01 1:49 PM EDT documented in this encounter Results * Transesophageal echo (SELVIN) (05/01/2024 1:49 PM EDT) us Historical Provider MD [facility] Final Result documented in this encounter Visit Diagnoses Not on filedocumented in this encounter Additional Health Concerns Assessment Noted Time PHQ-9 Depression Total Score: 4 02/10/20 23 11:02 AM EST documented as of this encounter Care Teams Financial Adviser Relationship Specialty Start Date End Date Marla Chun MD [address] [place] [address] PCP - General Family Medicine 10/16/21 documented as of this encounter
--- OUTSIDE RECORDS SUMMARY | 2024-10-16 09:46 | XMS_ITS | Encounter Summary ---
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 Name Role Phone Marla Chun MD Primary Care Provider [phone] Reason for Referral * Consultation (Routine) - Closed Specialty Diagnoses / Procedures Referred By Contpriyanka nelson Referred To Contact Allergy Diagnoses Other eosinophilia Acute sinusitis with symptoms > 10 days Azar Jorgensen MD [address] [place] [address] Phone: tel: fax: Ted Pa MD [address] [place] [address] Drive [address] [place] [address] Phone: tel: fax: Referral ID Status Reason Start Date Expiration Date V isits Requested Visits Authorized [id number] Closed Specialty Services Required 10/04/2024 10/04/2025 1 1 Encounter Details Date Type Department Care Team (Late st Contact Info) Description 10/03/2024 Orders Only [facility] [address] [place] [address] Azar Jorgensen MD [address] [place], [place] [phone] Other eosinophilia (Primary Dx); Acute sinusitis with symptoms > 10 days Social History Tobacco Use Types Packs/Day Years [...] as of this encounter Plan of Treatment Scheduled Referrals Name Type Priority Associated Diagnoses Orde r Schedule Referral to Allergy Outpatient Referral Routine Other eosinophilia Acute sinusitis with symptoms > 10 days Expected: 10/04/2024 (Approximate), Expires: 10/04/2025 documented as of this encounter Visit Diagnoses Diagnosis Other eosinophilia- Primary Acute sinusitis with symptoms > 10 days documented in this encounter Additional Health Concerns Assessment Noted Time PHQ-9 Depression Total Score: 4 02/10/20 23 11:02 AM EST documented as of this encounter Care Teams [employer] Sorter Relationship Specialty Start Date End Date Marla Chun MD [address] [place] [address] PCP - General Family Medicine 10/16/21 documented as of this encounter
== END 2024-10-16 09:46 | disposition home or self-care (01) ==
PROVIDERS: PCP Family Medicine; Visit Provider Nurse Practitioner Family
DX: I48.0 Paroxysmal atrial fibrillation (principal); Z95.818 Presence of other cardiac implants and grafts; I49.3 Ventricular premature depolarization; I10 Essential (primary) hypertension; G47.33 Obstructive sleep apnea (adult) (pediatric)
CPT/HCPCS: 93010; 99214; G2211

== ENCOUNTER → 2024-10-16 08:57 | Outpatient (BNVA) | payer MEDICARE, SELFPAY | PROVIDERS: PCP Family Medicine; Visit Provider Nurse Practitioner Family | DX: I48.0 Paroxysmal atrial fibrillation (principal); I49.3 Ventricular premature depolarization; I10 Essential (primary) hypertension; G47.33 Obstructive sleep apnea (adult) (pediatric); Z95.818 Presence of other cardiac implants and grafts; Z99.89 Dependence on other enabling machines and devices | CPT/HCPCS: 93005; 99212 ==